=== PATIENT | female | born 1935 | race Caucasian/White ===

== ENCOUNTER 2017-03-19 21:55 | Inpatient (IN) | payer OTHER ==
[~2017-03-19] VITALS: Ht 165.1 cm; Wt 105.4 kg
[~2017-03-19 21:55] MED LIST: ASPIRIN81 M1 PO; BYSTOLIC5 MG PO; CELEBREX200 MG PO; CIPRO250 MG PO; CIPRO500 MG PO; CIPROFLOXACIN500 MG PO; CITRACAL + D E1 EACH PO; CITRACAL CALCIU1 TAB PO; COZAAR100 MG PO; DAYPRO600 M1 PO; DILTIAZEM CD120 MG PO; DILTIAZEM ER120 MG PO; DILTIAZEM120 MG PO; ESTER C 500 MG-1 TAB PO; FLAGYL500 MG PO; HYDR12.5C PO; HYDROCODONE BIT1 T11 PO; HYZAAR 50/12.5M1 TAB PO; K-DUR 2020 MEQ PO; LEVOTHYROXINE0.1 MG PO; LOSARTAN POTASS1 TA4 PO; LOSARTAN POTASS1 TAB PO; LUTEIN6 M2 PO; LUTEIN6 MG PO; OMEPRAZOLE DR20 M1 PO; PRESERVISION L1 EACH PO; PRESERVISION1 SGL PO; PRILOSEC20 MG PO; PYRIDIUM200 MG PO; ROBAXIN750 MG PO; SIMVASTATIN20 MG PO; SYNTHROID0.1 MG PO; TENORMIN50 MG PO; TYLENOL EXTRA500 M2 PO; VICODIN 500 MG-1 TAB PO; VITAMIN D1000 IU PO; ZOCOR20 MG PO; Zofran4 MG PO
[2017-03-19 22:03] VITALS: BP 151/83
[2017-03-19 22:40] VITALS: BP 142/76
[2017-03-19 22:44] LABS: BASO % 0.4 % (0.0-1.0); EOS % 0.4 % (1.0-4.0); HEMATOCRIT 42.3 % (37.0-47.0); HEMOGLOBIN 13.7 g/dl (12.0-16.0); IG # 0.1 10*3/uL (0.0-0.1); LYMPH # 1.1 10*3/uL (1.3-4.4); LYMPH % 12.3 % (27.0-41.0); MEAN CELL VOLUME 96.8 fl (81.0-99.0); MEAN CORPUSCULAR HGB 31.4 pg (27.0-31.0); MEAN CORPUSCULAR HGB CONC 32.4 g/dl (33.0-37.0); MEAN PLATELET VOLUME 10.1 fl (9.6-12.3); MONO % 11.1 % (3.0-9.0); NEUT # 6.9 10*3/uL (2.3-7.9); NEUT % 75.3 % (47.0-73.0); PLATELET COUNT AUTOMATED 191 10*3/uL (130-400); RED BLOOD COUNT 4.37 10*6/uL (4.10-5.10); RED CELL DISTRI WIDTH 13.5 % (0-14.5); WHITE BLOOD COUNT 9.2 10*3/uL (4.8-10.8)
[2017-03-19 23:02] LABS: ALBUMIN 3.4 gm/dl (3.1-4.5); BILIRUBIN, TOTAL 0.5 mg/dl (0.2-1.0); MAGNESIUM 1.9 mg/dL (1.5-2.1); POTASSIUM 4.1 mmol/L (3.5-5.1); TOTAL PROTEIN 6.9 gm/dL (6.4-8.2)
[2017-03-19 23:03] LABS: TROPONIN I 0.026 ng/ml (<0.045)
[2017-03-19 23:05] LABS: INTERNATIONAL NORM RATIO 0.9 (2.0-3.5)
[2017-03-19 23:26] VITALS: BP 140/80
[2017-03-19 23:54] LABS: BILIRUBIN NEGATIVE (NEGATIVE); BLOOD NEGATIVE (NEGATIVE); CLARITY SL CLOUDY (CLEAR); GLUCOSE NEGATIVE (NEGATIVE); KETONE TRACE (NEGATIVE); LEUKO ESTERASE 1+ (NEGATIVE); NITRITE NEGATIVE (NEGATIVE); PH 5.5 (5.0-9.0); PROTEIN 2+ (NEGATIVE)
[2017-03-20] VITALS (7 sets, daily range): BP systolic 131–157; BP diastolic 69–79
[2017-03-20] LABS: COLOR YELLOW (YELLOW)
[2017-03-20 00:03] LABS: BACTERIA 3+; EPITHELIAL CELLS 20-25; URINE REFLEX COMMENT YES (NO); WBC 21-30 wbc/hpf (0-5)
[2017-03-20] MEDS ORDERED: CALCIUM 600600 M2 PO (02:17)
[2017-03-20] MEDS ORDERED: LOSARTAN POTASS25 M1 PO (02:19)
[2017-03-20] MEDS ORDERED: VITAMIN D1000 IU PO (02:24)
[2017-03-20] MEDS ORDERED: PRESERVISION A1 EACH PO (02:24)
[2017-03-20] MEDS ORDERED: VITAMIN C100 M3 PO (02:25)
[2017-03-20] MEDS ORDERED: B121000 MCG/1 IM (02:26)
[2017-03-20 06:21] LABS: BASO % 0.3 % (0.0-1.0); EOS % 0.3 % (1.0-4.0); HEMATOCRIT 37.9 % (37.0-47.0); HEMOGLOBIN 12.6 g/dl (12.0-16.0); LYMPH # 1.6 10*3/uL (1.3-4.4); LYMPH % 18.2 % (27.0-41.0); MEAN CELL VOLUME 95.9 fl (81.0-99.0); MEAN CORPUSCULAR HGB 31.9 pg (27.0-31.0); MEAN CORPUSCULAR HGB CONC 33.2 g/dl (33.0-37.0); MEAN PLATELET VOLUME 10.4 fl (9.6-12.3); MONO # 1.3 10*3/uL (0.1-1.0); MONO % 15.2 % (3.0-9.0); NEUT # 5.8 10*3/uL (2.3-7.9); NEUT % 65.7 % (47.0-73.0); PLATELET COUNT AUTOMATED 168 10*3/uL (130-400); RED BLOOD COUNT 3.95 10*6/uL (4.10-5.10); RED CELL DISTRI WIDTH 13.5 % (0-14.5); WHITE BLOOD COUNT 8.8 10*3/uL (4.8-10.8)
[2017-03-20 06:31] LABS: CKMB 1.4 ng/ml (0.5-3.6); TROPONIN I 0.042 ng/ml (<0.045)
[2017-03-20 06:42] LABS: BUN 29 mg/dl (7-24); CARBON DIOXIDE 28 mmol/L (21-32); CHLORIDE 101 mmol/L (98-107); CHOLESTEROL 124 mg/dL (<200); EST GLOM FILT AFRICAN AMERICAN > 60 ml/min; FREE T4 1.22 ng/dl (0.76-1.46); GLUCOSE 110 mg/dL (65-99); HDL CHOLESTEROL 63 mg/dl (40-60); HEMOGLOBIN A1c 5.3 % (4.8-5.6); LDL CHOLESTEROL 40 mg/dL (9-159); MAGNESIUM 1.8 mg/dL (1.5-2.1); PHOSPHOROUS 2.8 mg/dL (2.5-4.9); POTASSIUM 3.2 mmol/L (3.5-5.1); SODIUM 139 mmol/L (136-145); TRIGLYCERIDES 103 mg/dl (<150); VLDL CHOLESTEROL 21 mg/dL (6-40)
[2017-03-20 06:55] LABS: PROTHROMBIN TIME 10.6 SECONDS (9.0-12.4)
[2017-03-20 07:09] LABS: VITAMIN D, 25-HYDROXY 31.6 ng/mL (30-100)
[2017-03-20 07:10] LABS: FOLIC ACID 15.54 ng/mL (>5.38)
[2017-03-20] MEDS ORDERED: COLACE100 MG PO (11:35)
[2017-03-20 12:34] LABS: CKMB 1.9 ng/ml (0.5-3.6)
[2017-03-20 12:37] LABS: TROPONIN I 0.047 ng/ml (<0.045)
[2017-03-20 18:30] LABS: CKMB 1.7 ng/ml (0.5-3.6); TROPONIN I 0.038 ng/ml (<0.045)
[2017-03-21] VITALS (8 sets, daily range): BP systolic 108–170; BP diastolic 53–94
[2017-03-21 06:51] LABS: BASO % 0.5 % (0.0-1.0); EOS # 0.1 10*3/uL (0.0-0.4); EOS % 1.1 % (1.0-4.0); HEMATOCRIT 35.5 % (37.0-47.0); HEMOGLOBIN 11.7 g/dl (12.0-16.0); LYMPH # 1.4 10*3/uL (1.3-4.4); LYMPH % 23.4 % (27.0-41.0); MEAN CELL VOLUME 96.5 fl (81.0-99.0); MEAN CORPUSCULAR HGB 31.8 pg (27.0-31.0); MEAN PLATELET VOLUME 10.6 fl (9.6-12.3); MONO % 16.6 % (3.0-9.0); NEUT # 3.5 10*3/uL (2.3-7.9); NEUT % 58.1 % (47.0-73.0); PLATELET COUNT AUTOMATED 169 10*3/uL (130-400); RED BLOOD COUNT 3.68 10*6/uL (4.10-5.10); RED CELL DISTRI WIDTH 13.7 % (0-14.5); WHITE BLOOD COUNT 6.1 10*3/uL (4.8-10.8)
[2017-03-21 06:52] LABS: ALBUMIN 2.9 gm/dl (3.1-4.5); ALKALINE PHOSPHATASE 81 U/L (45-117); BILIRUBIN, TOTAL 0.7 mg/dl (0.2-1.0); BUN 27 mg/dl (7-24); CARBON DIOXIDE 28 mmol/L (21-32); CHLORIDE 103 mmol/L (98-107); EST GLOM FILT AFRICAN AMERICAN > 60 ml/min; GLUCOSE 104 mg/dL (65-99); POTASSIUM 3.7 mmol/L (3.5-5.1); SGOT/AST 15 IU/L (3-35); SGPT/ALT 14 U/L (12-78); SODIUM 137 mmol/L (136-145); TOTAL PROTEIN 5.7 gm/dL (6.4-8.2)
[2017-03-22] VITALS: BP 113/63
[2017-03-22 06:46] LABS: BASO % 0.6 % (0.0-1.0); EOS # 0.1 10*3/uL (0.0-0.4); EOS % 1.7 % (1.0-4.0); HEMATOCRIT 35.5 % (37.0-47.0); HEMOGLOBIN 11.5 g/dl (12.0-16.0); LYMPH # 1.7 10*3/uL (1.3-4.4); LYMPH % 25.7 % (27.0-41.0); MEAN CELL VOLUME 97.8 fl (81.0-99.0); MEAN CORPUSCULAR HGB 31.7 pg (27.0-31.0); MEAN CORPUSCULAR HGB CONC 32.4 g/dl (33.0-37.0); MONO # 1.1 10*3/uL (0.1-1.0); MONO % 16.7 % (3.0-9.0); NEUT # 3.6 10*3/uL (2.3-7.9); PLATELET COUNT AUTOMATED 155 10*3/uL (130-400); RED BLOOD COUNT 3.63 10*6/uL (4.10-5.10); RED CELL DISTRI WIDTH 13.9 % (0-14.5); WHITE BLOOD COUNT 6.5 10*3/uL (4.8-10.8)
[2017-03-22 06:51] LABS: BUN 29 mg/dl (7-24); CARBON DIOXIDE 25 mmol/L (21-32); CHLORIDE 102 mmol/L (98-107); EST GLOM FILT AFRICAN AMERICAN > 60 ml/min; GLUCOSE 103 mg/dL (65-99); MAGNESIUM 1.7 mg/dL (1.5-2.1); SODIUM 138 mmol/L (136-145)
[2017-03-22 06:52] LABS: PHOSPHOROUS 3.7 mg/dL (2.5-4.9)
[2017-03-22 08:00] VITALS: BP 137/49
[2017-03-22 12:00] VITALS: BP 119/52
[2017-03-22] MEDS ORDERED: LOSARTAN POTASS50 M1 PO (13:42)
[2017-03-22] MEDS ORDERED: XARE20MG PO (13:42)
[2017-03-22] MEDS ORDERED: HYDR25T PO (13:42)
== END 2017-03-22 14:45 | disposition home or self-care (01) | DRG 308 ==
LOC: ED 21:55 → 4E 03-20 00:29 → EDHOLD 03-20 00:29 → 4E 03-20 00:40
PROVIDERS: Emergency Medicine Emergency Medical Services; Hospitalist; Internal Medicine; Internal Medicine Nephrology
DX: I48.0 Paroxysmal atrial fibrillation (principal); N17.0 Acute kidney failure with tubular necrosis; E66.01 Morbid (severe) obesity due to excess calories; M48.00 Spinal stenosis, site unspecified; R73.9 Hyperglycemia, unspecified; D72.810 Lymphocytopenia; D72.821 Monocytosis (symptomatic); D72.818 Other decreased white blood cell count; E78.5 Hyperlipidemia, unspecified; E03.9 Hypothyroidism, unspecified; I89.0 Lymphedema, not elsewhere classified; Z60.2 Problems related to living alone; Z96.653 Presence of artificial knee joint, bilateral; Z96.611 Presence of right artificial shoulder joint; I12.9 Hypertensive chronic kidney disease with stage 1 through stage 4 chronic kidney disease, or unspecified chronic kidney disease; N18.3 Chronic kidney disease, stage 3 (moderate); Z68.38 Body mass index [BMI] 38.0-38.9, adult; Z88.0 Allergy status to penicillin; Z88.1 Allergy status to other antibiotic agents; Z88.8 Allergy status to other drugs, medicaments and biological substances; Z91.011 Allergy to milk products; Z91.018 Allergy to other foods; Z87.440 Personal history of urinary (tract) infections; Z90.49 Acquired absence of other specified parts of digestive tract; Z83.3 Family history of diabetes mellitus; Z82.49 Family history of ischemic heart disease and other diseases of the circulatory system; Z85.3 Personal history of malignant neoplasm of breast; Z90.710 Acquired absence of both cervix and uterus; Z88.2 Allergy status to sulfonamides; Z79.82 Long term (current) use of aspirin; Z79.899 Other long term (current) drug therapy

== ENCOUNTER 2017-05-23 07:55 | Inpatient (IN) | payer OTHER ==
[~2017-05-23] VITALS: Ht 167.6 cm; Wt 105.2 kg
--- NOTE | ~2017-05-23 | ST ---
[place], [place] EXERCISE STRESS TEST REPORT NAME: JERED SHAW UNIT #: [id number] ROOM: [facility] DOCTOR: ALEX ANGELES MD BIRTHDATE: [birth year] DOS: 05/24/2017 LEXISCAN STRESS EKG INDICATION: Atrial fibrillation and shortness of breath. PROCEDURES PERFORMED: Lexiscan stress EKG. The patient underwent standard protocol Lexiscan stress EKG. Patient's baseline heart rate was 80 with a blood pressure 130/84. Patient's baseline rhythm was atrial fibrillation. Patient's peak heart rate was 103 with a blood pressure 114/58. Patient had no EKG changes, no chest pain and no arrhythmias. SUMMARY OF FINDINGS: Unremarkable Lexiscan stress EKG. ALEX ANGELES MD CM:STRESS:EXERCISE STRESS TEST REPORT [id number] ALEX ANGELES MD
[~2017-05-23 07:55] MED LIST changes: +B121000 MCG/1 IM; +CALCIUM 600600 M2 PO; +COLACE100 MG PO; +HYDR25T PO; +LOSARTAN POTASS25 M1 PO; +LOSARTAN POTASS50 M1 PO; +PRESERVISION A1 EACH PO; +VITAMIN C100 M3 PO; +XARE20MG PO
[2017-05-23 08:09] VITALS: BP 134/81
[2017-05-23 08:25] LABS: BASO # 0.1 10*3/uL (0.0-0.1); BASO % 0.6 % (0.0-1.0); EOS # 0.1 10*3/uL (0.0-0.4); EOS % 0.6 % (1.0-4.0); HEMATOCRIT 45.6 % (37.0-47.0); HEMOGLOBIN 14.8 g/dl (12.0-16.0); LYMPH # 1.5 10*3/uL (1.3-4.4); LYMPH % 17.4 % (27.0-41.0); MEAN CELL VOLUME 97.9 fl (81.0-99.0); MEAN CORPUSCULAR HGB 31.8 pg (27.0-31.0); MEAN CORPUSCULAR HGB CONC 32.5 g/dl (33.0-37.0); MEAN PLATELET VOLUME 10.5 fl (9.6-12.3); NEUT # 6.1 10*3/uL (2.3-7.9); NEUT % 70.2 % (47.0-73.0); PLATELET COUNT AUTOMATED 219 10*3/uL (130-400); RED BLOOD COUNT 4.66 10*6/uL (4.10-5.10); RED CELL DISTRI WIDTH 13.6 % (0-14.5); WHITE BLOOD COUNT 8.6 10*3/uL (4.8-10.8)
[2017-05-23 08:37] LABS: ACT PARTIAL THROMBO TIME 34.3 SECONDS (20.8-31.5); INTERNATIONAL NORM RATIO 1.2 (2.0-3.5)
[2017-05-23 08:45] LABS: ALBUMIN 3.7 gm/dl (3.1-4.5); ALKALINE PHOSPHATASE 116 U/L (45-117); BUN 19 mg/dl (7-24); CHLORIDE 99 mmol/L (98-107); CREATININE 0.94 mg/dL (0.55-1.02); LIPASE 243 U/L (73-393); MAGNESIUM 1.7 mg/dL (1.5-2.1); SGOT/AST 30 IU/L (3-35); SGPT/ALT 19 U/L (12-78); SODIUM 137 mmol/L (136-145); TOTAL PROTEIN 7.7 gm/dL (6.4-8.2); TROPONIN I 0.037 ng/ml (<0.045)
[2017-05-23 09:09] LABS: BILIRUBIN NEGATIVE (NEGATIVE); BLOOD NEGATIVE (NEGATIVE); CLARITY CLEAR (CLEAR); COLOR YELLOW (YELLOW); GLUCOSE NEGATIVE (NEGATIVE); KETONE NEGATIVE (NEGATIVE); LEUKO ESTERASE NEGATIVE (NEGATIVE); NITRITE NEGATIVE (NEGATIVE); UROBILINOGEN 0.2 E.U./dl (0.2-1.0)
[2017-05-23 09:19] LABS: RBC 0-2 rbc/hpf (0-2)
[2017-05-23 09:31] VITALS: BP 112/62
--- NOTE | 2017-05-23 10:00 | NUR ---
A 81, admitted to , under the services of ELISEO Starr DO with a diagnosis of AFIB/RVR. Chief complaint is HEART FLUTTER. Patient arrived via bed from ER. Monitor applied. Initial assessment completed. Vital signs taken and recorded. ELISEO STARR DO notified of admission to the unit. Orders received. See assessment for past medical history, medications and allergies. Patient and/or family oriented to unit. [facility] visitation policy reviewed. Clothing/patient valuable form completed. GERONIMO CARRANZA
[2017-05-23 10:15] VITALS: BP 142/71
[2017-05-23 10:55] VITALS: BP 142/71
--- NOTE | 2017-05-23 11:44 | NUR ---
EPHRAIM CALLED AND TOLD ABOUT CONSULT. SHE PAGED DR. ANGELES, AWAITING HIM TO RETURN PHONE CALL TO UPDATE ABOUT PATIENT.
--- NOTE | 2017-05-23 13:10 | NUR ---
DR. BOLANOS NOTIFIED OF LACTIC ACID RESULTS.
[2017-05-23 14:35] LABS: FREE T4 1.2 ng/dl (0.76-1.46)
[2017-05-23 14:40] LABS: THYROID STIM HORMONE (HS) 1.24 uIU/ml (0.358-4.75)
--- NOTE | 2017-05-23 14:45 | NUR ---
DR. DAILY NOTIFIED OF CRITICAL TROP. DR. DAILY HAD NO CONCERNS AT THIS TIME.
[2017-05-23 16:00] VITALS: BP 120/88
[2017-05-23 20:00] VITALS: BP 140/69
[2017-05-24 00:02] VITALS: BP 133/56
[2017-05-24 06:01] LABS: BASO % 0.4 % (0.0-1.0); EOS # 0.1 10*3/uL (0.0-0.4); EOS % 0.8 % (1.0-4.0); LYMPH # 1.6 10*3/uL (1.3-4.4); LYMPH % 21.7 % (27.0-41.0); MEAN CELL VOLUME 96.9 fl (81.0-99.0); MEAN CORPUSCULAR HGB 31.8 pg (27.0-31.0); MEAN CORPUSCULAR HGB CONC 32.8 g/dl (33.0-37.0); MEAN PLATELET VOLUME 10.1 fl (9.6-12.3); MONO % 14.3 % (3.0-9.0); NEUT # 4.5 10*3/uL (2.3-7.9); NEUT % 62.5 % (47.0-73.0); PLATELET COUNT AUTOMATED 166 10*3/uL (130-400); RED CELL DISTRI WIDTH 13.7 % (0-14.5); WHITE BLOOD COUNT 7.2 10*3/uL (4.8-10.8)
[2017-05-24 06:06] LABS: BUN 24 mg/dl (7-24); CHLORIDE 102 mmol/L (98-107); CHOLESTEROL 107 mg/dL (<200); CREATININE 0.74 mg/dL (0.55-1.02); HDL CHOLESTEROL 53 mg/dl (40-60); LDL CHOLESTEROL 28 mg/dL (9-159); MAGNESIUM 1.8 mg/dL (1.5-2.1); PHOSPHOROUS 2.7 mg/dL (2.5-4.9); POTASSIUM 3.6 mmol/L (3.5-5.1); SODIUM 139 mmol/L (136-145); TRIGLYCERIDES 128 mg/dl (<150); VLDL CHOLESTEROL 26 mg/dL (6-40)
[2017-05-24 06:23] LABS: HEMATOCRIT 37.8 % (37.0-47.0); HEMOGLOBIN 12.4 g/dl (12.0-16.0)
[2017-05-24 06:39] LABS: ACT PARTIAL THROMBO TIME 33.9 SECONDS (20.8-31.5); INTERNATIONAL NORM RATIO 1.3 (2.0-3.5)
[2017-05-24 07:44] LABS: VITAMIN D, 25-HYDROXY 29.8 ng/mL (30-100)
[2017-05-24 08:00] VITALS: BP 128/62
--- NOTE | 2017-05-24 09:00 | NUR ---
Correctional Officer Sergeant in to talk to patient. Patient states lives at home with alone. There are few steps in the home. Physician: ladonna babb Pharmacy: [facility] health services: none Patient's level of ADLs: INDEPENDENT Patient has working utilities: all working DME: walker, cane, shower chair Follow-up physician's appointment after d/c: will be made by hospitalist nurse director upon discharge Does patient want to access PORTAL?: no Discharge plan discussed with patient, patient states she lives at home alone, uses a cane or walker for ambulation, is independent in adls. drives, patient states she will be going back home when able and denies any home needs. NENA SAMAYOA
--- NOTE | 2017-05-24 10:09 | NUR ---
PATIENT TAKEN TO CARDIAC REHAB.
--- NOTE | 2017-05-24 10:45 | NUR ---
INFORMED CONSENT OBTAINED FOR LEXISCAN NUCLEAR STRESS TEST WITH DR. ANGELES. RESTING EKG NSR WITH RARE PVC WITH A RESTING HR OF 80 WITH BP OF 130/84. LUNGS CLEAR WITH SPO2 OF 96% ON ROOM AIR. PT COMPLETED A 1:00 LEXISCAN PROTOCOL RECEIVING LEXISCAN 0.4 MG IV OVER 10 SECONDS. HAD NO CHEST PAIN OR ANY EKG CHANGES. HAD C/O "FUZZY FEELING IN HEAD" THAT WAS RELIEVED IN RECOVERY. HAD A PEAK HR OF 106 WITH BP OF 114/58. LAST RECOVERY HR OF 94 WITH BP OF 124/54. AWAITING SCANNING IN STABLE CONDITION.
[2017-05-24 12:00] VITALS: BP 122/75
[2017-05-24] MEDS ORDERED: FLECAINIDE ACE100 M1 PO (13:57)
--- NOTE | 2017-05-24 16:56 | NUR ---
PATIENT BEING DISCHARGED TO HOME.
--- NOTE | 2017-05-24 17:56 | NUR ---
PATIENT DISCHARGED TO HOME
== END 2017-05-24 17:56 | disposition home or self-care (01) | DRG 309 ==
LOC: ED 07:55 → EDHOLD 09:20 → 5E 09:20
PROVIDERS: Emergency Medicine; Internal Medicine; ADMIT Internal Medicine
PROC: 3E073KZ Introduction of Other Diagnostic Substance into Coronary Artery, Percutaneous Approach (ICD-10-PCS; principal; 2017-05-24)
PROC: 4A02XM4 Measurement of Cardiac Total Activity, External Approach (ICD-10-PCS; principal; 2017-05-24)
DX: I48.0 Paroxysmal atrial fibrillation (principal); E87.2 Acidosis; D68.59 Other primary thrombophilia; E11.65 Type 2 diabetes mellitus with hyperglycemia; E66.01 Morbid (severe) obesity due to excess calories; Z96.659 Presence of unspecified artificial knee joint; I10 Essential (primary) hypertension; E78.2 Mixed hyperlipidemia; E03.9 Hypothyroidism, unspecified; I89.0 Lymphedema, not elsewhere classified; Z85.3 Personal history of malignant neoplasm of breast; Z90.49 Acquired absence of other specified parts of digestive tract; Z90.710 Acquired absence of both cervix and uterus; Z82.49 Family history of ischemic heart disease and other diseases of the circulatory system; Z83.6 Family history of other diseases of the respiratory system; Z88.0 Allergy status to penicillin; Z91.018 Allergy to other foods; Z88.2 Allergy status to sulfonamides; Z88.1 Allergy status to other antibiotic agents; Z88.8 Allergy status to other drugs, medicaments and biological substances; Z79.82 Long term (current) use of aspirin; Z79.899 Other long term (current) drug therapy

== ENCOUNTER 2017-05-29 01:02 | Inpatient (IN) | payer OTHER ==
[~2017-05-29] VITALS: Ht 165.1 cm; Wt 119.8 kg
[2017-05-29] VITALS (11 sets, daily range): BP systolic 116–181; BP diastolic 63–89
--- NOTE | ~2017-05-29 | CON ---
[place], [place] REPORT OF CONSULTATION NAME: JERED SHAW UNIT #: [id number] ROOM: 405 DOCTOR: VIRGIL WILLARD MD BIRTHDATE: [birth year] DOS: 05/29/2017 REASON FOR CONSULTATION: Palpitations, atrial fibrillation with rapid ventricular response. HISTORY OF PRESENT ILLNESS: The patient is an 81-year-old woman who is limited in her activities by chronic lymphedema, but is still active and alert. She was diagnosed as having atrial fibrillation in February of this year. An echocardiogram showed normal left ventricular size and systolic function. Two echocardiograms are available in the last year. One was done in 07/2016 and the other in 02/2017. The first indicated that the left atrium was significantly enlarged, but the second indicated the left atrium was normal in size. Both showed normal left ventricular function. She was treated with rate control and Xarelto for stroke prophylaxis. She presented again to the hospital in 04/2017 with palpitations. Troponin level was minimally elevated at 0.051. She did undergo a pharmacologic stress test on 05/24/2017, which showed no evidence for ischemia. She was therefore placed on flecainide to help prevent further episodes of atrial fibrillation along with diltiazem for rate control. She was continued on Xarelto for stroke prophylaxis. Last evening at about 10:00 p.m. while at rest, she felt that her heart was racing. She was lying in bed and felt uncomfortable, so she sat up and her symptoms improved. They did, however, recur and therefore she came to the Emergency Room. She denied actual chest pain, but states that her heart was beating very hard. She denied diaphoresis, nausea, lightheadedness or syncope. She was not dyspneic. In the hospital, her initial troponin level was 0.030 and then 0.029; however, the third troponin level obtained about 6 hours after admission was 0.108 and therefore, Cardiology was consulted. Review of her monitor shows that she has been in atrial fibrillation and flutter for much of her hospitalization thus far. Her heart rates have varied from 80-130. PAST MEDICAL HISTORY: Includes; 1. Essential hypertension. 2. Hyperlipidemia. 3. Hypothyroidism. 4. Lymphedema. 5. Obesity. 6. Paroxysmal atrial fibrillation, first diagnosed 02/2017. 7. Spinal stenosis. 8. Breast cancer. 9. The patient gives a history of an abnormal stress test 15 or 20 years ago. She subsequently underwent catheterization at the [facility] in [place] and was told that she had no coronary artery disease. 10. History of hysterectomy, cholecystectomy, breast lumpectomy, shoulder surgery and total knee replacement. FAMILY HISTORY: The patient states that her father of a heart attack in his 80s, her mother in her 80s of COPD. REVIEW OF SYSTEMS: The patient denies diplopia or loss of vision. She denies [place], [place] REPORT OF CONSULTATION NAME: JERED SHAW UNIT #: [id number] ROOM: 405 DOCTOR: VIRGIL WILLARD MD BIRTHDATE: [birth year] focal weakness or history of stroke or TIA. She denies nausea or vomiting. She denies fevers, chills, sweats or recent weight change. She denies polydipsia, polyuria, heat or cold intolerance. She denies any new skin rashes. She denies hemoptysis or hematemesis. She is very sedentary and does get dyspneic with minor exertion. She denies any chest pain, but did have palpitations prior to admission as noted. She denied lightheadedness or syncope. She denied unexplained diaphoresis. She denies change in bowel or bladder habits and denied blood in her stools or urine. She does have chronic lymphedema of her legs. She does complain of cramping in her legs if they have been dependent for long periods of time. The remainder of the review of systems is negative except as noted above. SOCIAL HISTORY: The patient does not consume alcohol and has never smoked, although she did live with smokers as she was growing up. She states that her mother was a heavy smoker. She does not consume alcohol. MEDICATIONS PRIOR TO ADMISSION: B12 1000 mcg injected monthly, acetaminophen p.r.n., ascorbic acid 1000 mg daily, aspirin 81 mg daily, calcium carbonate 600 mg daily, vitamin D daily, diltiazem CD 120 mg daily, flecainide 100 mg b.i.d., hydrochlorothiazide 25 mg daily, levothyroxine 100 mcg daily, losartan 50 mg daily, lutein 6 mg daily, rivaroxaban 20 mg daily, simvastatin 20 mg at bedtime, PreserVision vitamins b.i.d. and docusate 100 mg daily as needed. ALLERGIES: SHE LISTS ALLERGIES TO DAIRY PRODUCTS, LEMON, PENICILLIN, SULFA, CHOCOLATE FLAVOR, CORTISONE, DIPHENHYDRAMINE, METHOCARBAMOL, NEOMYCIN AND OTHER MYCINS. PHYSICAL EXAMINATION: GENERAL: The patient is an overweight white female who is awake, alert and oriented. VITAL SIGNS: Pulse is varying between 80 and 130, blood pressure is 140/70. She is afebrile. She weighs 119.8 kg and has a body mass index of 44. HEENT: Normocephalic, atraumatic. Extraocular muscles are intact. Sclerae are clear. Pupils are round and reactive to light. The oral mucosa is moist. Tongue is midline. NECK: Supple. She has no jugular distention. Carotids are full. She has no bruit. She has no neck or supraclavicular masses. LUNGS: Respirations are unlabored. CHEST: Clear to auscultation and percussion. She has no presacral edema or chest wall tenderness. CARDIOVASCULAR: Her heart has an irregularly irregular rhythm without murmurs or gallops. The PMI is not displaced. She has no precordial heave, lift or thrill. ABDOMEN: Obese, but otherwise benign without masses, organomegaly or bruits. There is no mass or rebound. EXTREMITIES: Show lymphedema of the legs. Pedal pulses are palpable bilaterally. She does have some chronic stasis changes of her ankles, but no acute rashes. LABORATORY DATA: I reviewed her electrocardiogram. It showed sinus rhythm with [place], [place] REPORT OF CONSULTATION NAME: JERED SHAW UNIT #: [id number] ROOM: 405 DOCTOR: VIRGIL WILLARD MD BIRTHDATE: [birth year] PACs. There is probable left atrial enlargement. She had early precordial R-wave transition and borderline T-wave abnormalities, but no acute ST elevation or depression. IMPRESSIONS: 1. Recurrent atrial fibrillation (paroxysmal atrial fibrillation). 2. Hypertension. 3. Hypothyroidism, on replacement. 4. Morbid obesity. 5. Elevation in troponin level. 6. Type 2 diabetes mellitus, diet therapy. 7. Lymphedema. DISCUSSION PLAN: The patient has had elevated troponin levels in the past with her atrial fibrillation; however, this is the highest we have seen. A stress test done within the last week showed no evidence for ischemia; however, this may mean that she does have multivessel disease with "balanced ischemia." Alternatively, she may have subendocardial ischemia from left ventricular hypertrophy and tachycardia. It is likely that her heart rate in atrial fibrillation is faster now since she is on flecainide. This may have contributed to increase subendocardial ischemia. I have discussed these issues with the patient. I would like to repeat her echocardiogram for left ventricular wall motion and function. I would also like to follow her serial troponin levels. If they continue to rise or if she shows any deterioration in left ventricular function, then catheterization would certainly be indicated. The patient understands this and is agreeable to proceed if it appears to be indicated. Flecainide apparently was not effective in preventing her atrial fibrillation. For now, I will stop her diltiazem and place her on metoprolol. We will discuss other antiarrhythmic therapies once we have decided whether or not, catheterization is indicated. In the interim, I will stop rivaroxaban and place her on unfractionated heparin until we make a decision regarding an invasive evaluation. I thank the hospitalist physicians for asking our advice regarding her care. VIRGIL WILLARD MD CM:CONSTR:REPORT OF CONSULTATION 05/29/17 0956 interface
[~2017-05-29 01:02] MED LIST changes: +CALCIUM 600 MG1 EACH PO; -CALCIUM 600600 M2 PO; +FLECAINIDE ACE100 M1 PO
[2017-05-29 01:29] LABS: BASO # 0.1 10*3/uL (0.0-0.1); BASO % 0.6 % (0.0-1.0); EOS # 0.1 10*3/uL (0.0-0.4); EOS % 0.8 % (1.0-4.0); HEMATOCRIT 41.3 % (37.0-47.0); HEMOGLOBIN 13.5 g/dl (12.0-16.0); LYMPH # 1.5 10*3/uL (1.3-4.4); LYMPH % 17.3 % (27.0-41.0); MEAN CELL VOLUME 96.5 fl (81.0-99.0); MEAN CORPUSCULAR HGB 31.5 pg (27.0-31.0); MEAN CORPUSCULAR HGB CONC 32.7 g/dl (33.0-37.0); MEAN PLATELET VOLUME 10.1 fl (9.6-12.3); MONO % 11.3 % (3.0-9.0); NEUT % 69.8 % (47.0-73.0); PLATELET COUNT AUTOMATED 188 10*3/uL (130-400); RED BLOOD COUNT 4.28 10*6/uL (4.10-5.10); RED CELL DISTRI WIDTH 13.6 % (0-14.5); WHITE BLOOD COUNT 8.7 10*3/uL (4.8-10.8)
[2017-05-29 01:39] LABS: ACT PARTIAL THROMBO TIME 38.3 SECONDS (20.8-31.5); INTERNATIONAL NORM RATIO 1.4 (2.0-3.5)
[2017-05-29 01:46] LABS: ALBUMIN 3.5 gm/dl (3.1-4.5); ALKALINE PHOSPHATASE 95 U/L (45-117); BUN 25 mg/dl (7-24); CHLORIDE 103 mmol/L (98-107); CREATININE 0.77 mg/dL (0.55-1.02); MAGNESIUM 1.5 mg/dL (1.5-2.1); POTASSIUM 3.4 mmol/L (3.5-5.1); SGOT/AST 19 IU/L (3-35); SGPT/ALT 13 U/L (12-78); SODIUM 137 mmol/L (136-145); TOTAL PROTEIN 6.7 gm/dL (6.4-8.2)
--- NOTE | 2017-05-29 02:45 | NUR ---
MEDICATION REQ REVIEWED WITH PT AND PTS DAUGHTER AT THIS TIME.
--- NOTE | 2017-05-29 02:45 | NUR ---
A 81, admitted to 4E, under the services of LISA Mclaughlin DO with a diagnosis of AFIB WITH CONTROLLED VENTRICULAR RESPONSE AND CHEST PAIN. Chief complaint is FAST HEART RATE-PALPATATIONS. Patient arrived via stretcher from ER. Monitor applied. Initial assessment completed. Vital signs taken and recorded. LISA MCLAUGHLIN DO notified of admission to the unit. Orders received. See assessment for past medical history, medications and allergies. Patient and/or family oriented to unit. visitation policy reviewed. Clothing/patient valuable form completed. ISHMAEL DAVALOS
--- NOTE | 2017-05-29 05:47 | NUR ---
NOTIFIED THAT MED REQ UP TO DATE
--- NOTE | 2017-05-29 06:27 | NUR ---
PT REPORTS THAT SHE HAS BEEN PREVIOUSLY VACCINATED FOR THE FLU SHOT DURING LAST HOSPITALIZATION
[2017-05-29 07:23] LABS: BASO % 0.5 % (0.0-1.0); EOS % 0.5 % (1.0-4.0); HEMATOCRIT 42.4 % (37.0-47.0); HEMOGLOBIN 13.8 g/dl (12.0-16.0); LYMPH # 1.9 10*3/uL (1.3-4.4); LYMPH % 22.8 % (27.0-41.0); MEAN CELL VOLUME 96.8 fl (81.0-99.0); MEAN CORPUSCULAR HGB 31.5 pg (27.0-31.0); MEAN CORPUSCULAR HGB CONC 32.5 g/dl (33.0-37.0); MEAN PLATELET VOLUME 9.8 fl (9.6-12.3); MONO % 12.5 % (3.0-9.0); NEUT # 5.1 10*3/uL (2.3-7.9); NEUT % 63.3 % (47.0-73.0); PLATELET COUNT AUTOMATED 194 10*3/uL (130-400); RED BLOOD COUNT 4.38 10*6/uL (4.10-5.10); RED CELL DISTRI WIDTH 13.4 % (0-14.5); WHITE BLOOD COUNT 8.1 10*3/uL (4.8-10.8)
--- NOTE | 2017-05-29 07:40 | NUR ---
CALLED CONSULT TO [facility] ANSWERING SERVICE.
--- NOTE | 2017-05-29 07:40 | NUR ---
SPOKE WITH DR. GALLEGO REGARDING ELEVATED TROPININ. DR. GALLEGO STATES SHE WILL CONSULT [facility] CARDI[facility] AND PUT ORDERS IN.
[2017-05-29 07:46] LABS: ALBUMIN 3.5 gm/dl (3.1-4.5); ALKALINE PHOSPHATASE 103 U/L (45-117); BUN 21 mg/dl (7-24); CHLORIDE 104 mmol/L (98-107); CREATININE 0.79 mg/dL (0.55-1.02); MAGNESIUM 1.7 mg/dL (1.5-2.1); PHOSPHOROUS 2.8 mg/dL (2.5-4.9); POTASSIUM 3.2 mmol/L (3.5-5.1); SGOT/AST 16 IU/L (3-35); SGPT/ALT 15 U/L (12-78); SODIUM 140 mmol/L (136-145); TOTAL PROTEIN 7.2 gm/dL (6.4-8.2)
[2017-05-29 07:57] LABS: ACT PARTIAL THROMBO TIME 32.8 SECONDS (20.8-31.5); INTERNATIONAL NORM RATIO 1.2 (2.0-3.5)
--- NOTE | 2017-05-29 08:11 | NUR ---
ADMINISTERED 10 MG BOLUS CARDIZEM AND STARTED DRIP AT RATE OF 10 MG/HR. CURRENT HEART RATE IS 137.
--- NOTE | 2017-05-29 08:25 | NUR ---
SPOKE WITH DR. CORTEZ REGARDING NEW CONSULT FOR THIS PATIENT AND ELEVATED TROPONIN WELL ELEVATED HEART RATE. DR. WILLARD GAVE TO ORDER FOR DILTIAZEM BOLUS 10MG AND A CONTINUEOUS DRIP AT 10 MG/HR.
--- NOTE | 2017-05-29 08:34 | NUR ---
CURRENT HEART RATE IS 89 STILL ATRIAL FIBRILLATION.
--- NOTE | 2017-05-29 08:42 | NUR ---
HEART RATE IS CURRENTLY 120. DR. WILLARD WANTS RATE TO MAINTAIN FOR ONE HOUR AND REASSESS HR THEN AND CALL FOR OREDERS.
--- NOTE | 2017-05-29 09:27 | NUR ---
INITIATED HEPARIN BOLUS AND DRIP ORDERED. PTT ORDERED PER POLICY.
--- NOTE | 2017-05-29 11:19 | NUR ---
NOTIFIED DR. SALGADO OF CRITICAL LAB VALUE.
--- NOTE | 2017-05-29 16:33 | NUR ---
ASSESSED PT. SHE WAS BLEEDING FROM THE FINGER AND IV WAS SLIGHTLY BLEEDING. HEPEREIN DRIP WAS STOPPED AND PRESSURE WAS PUT ON FINGER AND IV SITE. WILL CONINUE TO MONITOR
--- NOTE | 2017-05-29 18:10 | NUR ---
LAB REPORTS ABNORMAL APPT RESULTS THAT HAS BEEN VERIFIED BY REPEAT TESTING.RESULTS COULD REFLECTEXCESSIVE ANTICOAGULANT THERAPY, LOW FACTOR LEVELS, A FACTOR INHIBITOR OR SAMPLE INTEGRITY ISSUE. ADVISED DR. WILLARD OF THESE FINDINGS. DR. CARRASCO GAVE TO ORDER TO D/C HEPARIN AND RESUME XERALTO TOMORROW MORNING.
--- NOTE | 2017-05-29 20:00 | NUR ---
PATIENT SITTING UP IN BED, DENIES ANY CHEST PAIN, OR SHORTNESS OF BREATH. PATIENT HAS SINCE CONVERTED TO NORMAL SINUS HR IN THE 70'S. PATIENT DENIES ANY OTHER SYMPTOMS AT THIS TIME. WILL CONTINUE TO MONITOR. PATIENT LEFT WITH CALL LIGHT IN REACH.
--- NOTE | 2017-05-29 22:44 | NUR ---
24 HR chart check completed.
[2017-05-30] VITALS: BP 132/67
[2017-05-30 07:08] LABS: BUN 23 mg/dl (7-24); CHLORIDE 108 mmol/L (98-107); CREATININE 0.81 mg/dL (0.55-1.02); POTASSIUM 3.7 mmol/L (3.5-5.1); SODIUM 140 mmol/L (136-145)
[2017-05-30 07:12] LABS: TROPONIN I 0.058 ng/ml (<0.045)
[2017-05-30 08:00] VITALS: BP 151/62
--- NOTE | 2017-05-30 08:00 | NUR ---
IN BED AWAKE ALERT AND ORIENTED X3, VERY PLEASANT. DENIES ANY COMPLAINTS. NO S/S OF DISTRESS. WILL CONT TO MONITOR. CALL LIGHT IN REACH. LABS REVIEWED.
--- NOTE | 2017-05-30 09:00 | NUR ---
Javascript Software Engineer in to talk to patient. Patient states lives at home with alone. There are few steps in the home. Physician: ladonna babb Pharmacy: [facility] health services: none Patient's level of ADLs: INDEPENDENT Patient has working utilities: all working DME: walker, cane, shower chair Follow-up physician's appointment after d/c: will be made by hospitalist nurse director upon discharge Does patient want to access PORTAL?: no Discharge plan discussed with patient, patient lives at home alone, she states she has a cane and walker if needed she drives, patient states she will be going home when able, discussed with her VNA and she refused any at this time, stated she has two daughter that will help her if needed. case management will follow. NENA SAMAYAO
[2017-05-30 12:00] VITALS: BP 153/75
[2017-05-30 16:00] VITALS: BP 117/59
[2017-05-30 20:00] VITALS: BP 124/58
[2017-05-31] VITALS: BP 127/53
--- NOTE | 2017-05-31 05:53 | NUR ---
PATIENT RESTING IN BED WITH EYES CLOSED. NO SIGNS OR SYMPTOMS OF DISTRESS NOTED. SLEPT WELL THROUGH THE NIGHT. WILL CONTINUE TO MONITOR. CALL LIGHT IN REACH.
[2017-05-31 06:00] LABS: BUN 25 mg/dl (7-24); CHLORIDE 105 mmol/L (98-107); MAGNESIUM 1.7 mg/dL (1.5-2.1); POTASSIUM 3.3 mmol/L (3.5-5.1); SODIUM 139 mmol/L (136-145)
[2017-05-31 06:07] LABS: BASO # 0.1 10*3/uL (0.0-0.1); BASO % 0.8 % (0.0-1.0); EOS # 0.1 10*3/uL (0.0-0.4); EOS % 1.6 % (1.0-4.0); HEMATOCRIT 36.8 % (37.0-47.0); HEMOGLOBIN 11.8 g/dl (12.0-16.0); LYMPH # 1.3 10*3/uL (1.3-4.4); LYMPH % 20.7 % (27.0-41.0); MEAN CELL VOLUME 97.1 fl (81.0-99.0); MEAN CORPUSCULAR HGB 31.1 pg (27.0-31.0); MEAN CORPUSCULAR HGB CONC 32.1 g/dl (33.0-37.0); MEAN PLATELET VOLUME 10.4 fl (9.6-12.3); MONO % 15.4 % (3.0-9.0); NEUT # 3.8 10*3/uL (2.3-7.9); NEUT % 61.2 % (47.0-73.0); PLATELET COUNT AUTOMATED 168 10*3/uL (130-400); RED BLOOD COUNT 3.79 10*6/uL (4.10-5.10); RED CELL DISTRI WIDTH 13.7 % (0-14.5); WHITE BLOOD COUNT 6.2 10*3/uL (4.8-10.8)
[2017-05-31 08:00] VITALS: BP 154/69
--- NOTE | 2017-05-31 08:00 | NUR ---
IN BED AWAKE ALERT AND ORIENTED X3, VERY PLEASANT. DENIES C/O. NO S/S OF DISTRESS .WILL CONT TO MONITOR. CALL LIGHT IN REACH. SEE ASSESS. LABS REVIEWED.
--- NOTE | 2017-05-31 09:00 | NUR ---
case management visits with patient, patient states she will be going home when able and denies any home needs
[2017-05-31 12:00] VITALS: BP 147/71
[2017-05-31] MEDS ORDERED: TOPROL XL50 M1 PO (13:07)
[2017-05-31] MEDS ORDERED: SIMVASTATIN10 MG PO (13:07)
[2017-05-31] MEDS ORDERED: MULTAQ400 MG PO (13:07)
--- NOTE | 2017-05-31 16:47 | NUR ---
DISCHARGED AT THIS TIME. BOTH IVs REMOVED AND PRESSURE DRESSING APPLIED. HEART MONITOR RETURNED TO FLOOR. VERBALIZED UNDERSTANDING OF DISCHARGE INSTRUCTIONS.
== END 2017-05-31 16:47 | disposition home or self-care (01) | DRG 308 ==
LOC: ED 01:02 → EDHOLD 02:10 → 4E 02:10
PROVIDERS: Emergency Medicine Emergency Medical Services; Hospitalist; Internal Medicine Cardiovascular Disease; Internal Medicine Nephrology; ADMIT Internal Medicine
DX: I48.0 Paroxysmal atrial fibrillation (principal); J18.9 Pneumonia, unspecified organism; Z68.41 Body mass index [BMI] 40.0-44.9, adult; D68.59 Other primary thrombophilia; E66.01 Morbid (severe) obesity due to excess calories; K21.9 Gastro-esophageal reflux disease without esophagitis; I99.8 Other disorder of circulatory system; R07.89 Other chest pain; I10 Essential (primary) hypertension; E78.5 Hyperlipidemia, unspecified; E03.9 Hypothyroidism, unspecified; R73.9 Hyperglycemia, unspecified; E87.6 Hypokalemia; M48.00 Spinal stenosis, site unspecified; Z90.710 Acquired absence of both cervix and uterus; Z90.49 Acquired absence of other specified parts of digestive tract; Z82.49 Family history of ischemic heart disease and other diseases of the circulatory system; Z83.6 Family history of other diseases of the respiratory system; Z88.6 Allergy status to analgesic agent; Z91.011 Allergy to milk products; Z88.2 Allergy status to sulfonamides; Z88.8 Allergy status to other drugs, medicaments and biological substances; Z91.018 Allergy to other foods; Z79.82 Long term (current) use of aspirin; Z79.899 Other long term (current) drug therapy; Z85.3 Personal history of malignant neoplasm of breast; Z96.653 Presence of artificial knee joint, bilateral

== ENCOUNTER 2017-06-04 20:00 | Inpatient (IN) | payer OTHER ==
[~2017-06-04] VITALS: Ht 165.1 cm; Wt 104.9 kg
--- NOTE | ~2017-06-04 | O ---
[place], [place] OPERATIVE NOTE NAME: JERED SHAW UNIT #: [id number] ROOM: 406 DOCTOR: DYANA YBARRA MD BIRTHDATE: [birth year] DOS: The patient has presented with an upper GI bleed. The patient has been endoscopically assessed a few days ago. The patient has been placed on Sandostatin drip and PPI therapy because of the bleeding from duodenum site exactly unknown, however was recognized that she had fresh blood in the second and third part of her duodenum. She had diverticula in the duodenum at that time. She has been on Sandostatin continuous drip to prevent further bleeding. PROCEDURE: Today's procedure part of investigation is panendoscopy plus biopsy. PREMEDICATION: Versed and Diprivan. SCOPE: Olympus forward-viewing gastroscope Q10 video. REPORT: After putting the patient in the left lateral position and after application of lubricant to the scope, the scope was introduced. Thereafter, under direct visualization, I advanced through the length of esophagus without difficulty. Gastric pouch was entered. Hiatal hernia moderate size was seen. Gastritis noticed. Antrum biopsy obtained for H. pylori. Duodenum was entered. At junction of second and third part of duodenum, complex of large diverticula were identified. There is no evidence of bleeding; however, at this time, air was suctioned out. Photographic series obtained. The patient extubated, tolerated procedure well. IMPRESSION: Moderate-sized hiatal hernia, gastritis, multiple diverticula, large in size in second and third part of duodenum with no active bleeding; therefore, we are going to stop Sandostatin once this bag supply completes. We are going to elevate her to full liquid diet. We are going to have another H and H tomorrow morning. We are going to continue with PPI and sucralfate therapy. We are going to withhold anticoagulants at this time. She is very much exposed to rebleed; therefore, supportive management as long as it is possible without anticoagulation until we get mucosal rejuvenation hopefully by Monday, she will be safer for anticoagulation. [place], [place] OPERATIVE NOTE NAME: JERED SHAW UNIT #: [id number] ROOM: 406 DOCTOR: DYANA YBARRA MD BIRTHDATE: [birth year] DYANA YBARRA MD CM:SOYORD:OPERATIVE NOTE 1225 DYANA YBARRA MD 06/09/17 1311 interface
--- NOTE | ~2017-06-04 | O ---
[place], [place] OPERATIVE NOTE NAME: JERED SHAW UNIT #: [id number] ROOM: 406 DOCTOR: AMADA VOGT,DYANA BIRTHDATE: [birth year] DOS: GASTRO-ENDOSCOPIC REPORT INDICATIONS: An 81-year-old patient who has presented with chief complaint of anemia, undergoing investigation. The patient with the previous history of upper GI bleed, on anticoagulant. PROCEDURE: Today's procedure part of investigation is colonoscopy plus snare polypectomy. PREMEDICATION: Versed and Diprivan. SCOPE: Olympus forward-viewing colonoscope 10L video. REPORT: After putting the patient in the left lateral position and after application of lubricant to the scope, the scope was introduced. Thereafter, under direct visualization, I advanced through the length of colon without difficulty. Evidence of diverticulosis was appreciated in mid ascending colon, partially ____ and infiltrated polyp from the base deeply coagulated and then polypectomized with the snare and removed. Diverticulosis of sigmoid colon reassessed. Base of the cecum explored, appendiceal orifice identified, ileocecal valve was defined. The patient extubated, tolerated procedure well. IMPRESSION: Diverticulosis of sigmoid colon and polypoid lesion of mid ascending colon, status post snare polypectomy. PLAN: Resumption of feeding soft diet, clinical reassessment. DYANA YBARRA MD CM:OPRECORD:OPERATIVE NOTE 1938 21 DYANA YBARRA MD 06/12/172120 interface
--- NOTE | ~2017-06-04 | O ---
[place], [place] OPERATIVE NOTE NAME: JERED SHAW UNIT #: [id number] ROOM: 406 DOCTOR: AMADA [facility]ICAHUGH [facility] BIRTHDATE: [birth year] DOS: GASTRO-ENDOSCOPIC REPORT HISTORY OF PRESENT ILLNESS: This is an 81-year-old who has presented with multiple issues, among which has been epigastric distress and anemia, drop in H and H, guaiac positivity. The patient has been admitted for definitive evaluation. Initial H and H was 11.8 and 36 and prior to that had been 13 hemoglobin, however, H and H later has been 9 and 29. I have been asked for assessment of the patient in this regard. PAST MEDICAL HISTORY: Associated with hypertension, hypothyroidism, hyperlipidemia, obesity, atrial fibrillation, spinal stenosis, old history of breast CA. PAST SURGICAL HISTORY: Cholecystectomy; hysterectomy; lumpectomy; history of ERCPs, details unknown; total knee arthroscopy; shoulder repair. SOCIAL HISTORY: Nonsmoker, nonalcohol consumer. FAMILY HISTORY: Noncontributory. MEDICATIONS: List has been reviewed including Xarelto and aspirin, this plus ascorbic acid, all have been on hold. PROCEDURE: Today's procedure part of investigation is panendoscopy plus lavage of the esophagus with water. PREMEDICATION: Versed and Diprivan. SCOPE: Olympus forward-viewing gastroscope Q10 video. REPORT: After putting the patient in left lateral position and application of lubricant to the scope, the scope was introduced. Thereafter, under direct visualization, I advanced through the length of the esophagus without difficulty. Esophagus, cervicothoracic distally carefully examined. Gastric pouch was entered. A large hiatal hernia was noticed. Gastric pouch demonstrate some residual blood in the pouch. The duodenum was entered. Second part of the duodenum was approached. There were blood clots in the second part of the duodenum. Multiple large duodenal diverticulum were as well noticed. There were blood clots in this area. Cold water lavage of the area was done; however, we could not definitely identify a source, therefore hemobilia would become on differential diagnosis. We are concerned. Scope was gradually withdrawn along the lesser curvature. No biopsy obtained due to the fact the patient has been on aspirin and Xarelto; therefore, the patient was extubated, tolerated procedure well. IMPRESSION: Moderate size hiatal hernia, duodenal diverticulum, ambiguous source of blood clots in the duodenum, second and third part, ruling out hemobilia. [place], [place] OPERATIVE NOTE NAME: JERED SHAW UNIT #: [id number] ROOM: 406 DOCTOR: AMADA VOGT,DYANA BIRTHDATE: [birth year] PLAN AND DISCUSSION: 1. We are going to organize a CT scan of the abdomen and pelvis with attention to biliary anatomy. 2. We are going to start this patient on Sandostatin drip 50 mcg loading and 25 mcg continuous drip. We are going to have another CBC in the morning. We are going to keep her on ice cold liquid diet, i.e. ice cream, milk shake, ice popsicles and we are awaiting reports. The patient is going to be on Protonix 40 mg daily as well and clinical reassessment. Other adjunctive diagnoses has been already addressed in consultation report. Thank you very much indeed. DYANA YBARRA MD CM:OPRECORD:OPERATIVE NOTE 1102 1431 DYANA YBARRA MD 06/07/17 1431 interface
[~2017-06-04 20:00] MED LIST changes: +MULTAQ400 MG PO; +SIMVASTATIN10 MG PO; +TOPROL XL50 M1 PO
[2017-06-04 20:09] VITALS: BP 156/73
--- NOTE | 2017-06-04 20:15 | NUR ---
PER MD VERBAL ORDER,PT PLACED ON 2L O2 VIA NC.O2 SAT 98%.
[2017-06-04 20:34] LABS: BASO % 0.7 % (0.0-1.0); EOS # 0.1 10*3/uL (0.0-0.4); EOS % 0.9 % (1.0-4.0); HEMOGLOBIN 11.7 g/dl (12.0-16.0); LYMPH % 17.7 % (27.0-41.0); MEAN CELL VOLUME 97.6 fl (81.0-99.0); MEAN CORPUSCULAR HGB 31.7 pg (27.0-31.0); MEAN CORPUSCULAR HGB CONC 32.5 g/dl (33.0-37.0); MEAN PLATELET VOLUME 9.9 fl (9.6-12.3); MONO # 0.8 10*3/uL (0.1-1.0); MONO % 13.8 % (3.0-9.0); NEUT # 3.9 10*3/uL (2.3-7.9); NEUT % 66.2 % (47.0-73.0); PLATELET COUNT AUTOMATED 183 10*3/uL (130-400); RED BLOOD COUNT 3.69 10*6/uL (4.10-5.10); RED CELL DISTRI WIDTH 13.8 % (0-14.5); WHITE BLOOD COUNT 5.8 10*3/uL (4.8-10.8)
[2017-06-04 20:43] LABS: INTERNATIONAL NORM RATIO 1.5 (2.0-3.5)
[2017-06-04 20:51] LABS: ALBUMIN 3.2 gm/dl (3.1-4.5); CREATININE 1.17 mg/dL (0.55-1.02); MAGNESIUM 1.7 mg/dL (1.5-2.1); POTASSIUM 3.9 mmol/L (3.5-5.1); TOTAL PROTEIN 6.5 gm/dL (6.4-8.2); TROPONIN I 0.025 ng/ml (<0.045)
[2017-06-04 20:58] LABS: THYROID STIM HORMONE (HS) 10.2 uIU/ml (0.358-4.75)
[2017-06-04 22:22] VITALS: BP 160/69
[2017-06-04 23:45] VITALS: BP 122/50
--- NOTE | 2017-06-04 23:45 | NUR ---
A 81, admitted to 5E, under the services of ELISEO Starr DO with a diagnosis of CHF, AFIB. Chief complaint is SOB. Patient arrived via stretcher from ER. Monitor applied. Initial assessment completed. Vital signs taken and recorded. ELISEO STARR DO notified of admission to the unit. Orders received. See assessment for past medical history, medications and allergies. Patient and/or family oriented to unit. [facility] visitation policy reviewed. Clothing/patient valuable form completed. DADA GARCIA
[2017-06-04] MEDS ORDERED: CALCIUM 600 +1 EA10 PO (23:54)
[2017-06-05] VITALS: BP 122/50
--- NOTE | 2017-06-05 00:08 | NUR ---
MED REC UP TO DATE PER PT RECALL.
--- NOTE | 2017-06-05 00:17 | NUR ---
SPOKE TO AT THIS TIME REGARDING ADMISSION ORDERS. DISCUSSED PERTINENT PATIENT DEMOGRAPHICS INCLUDING DIAGNOSIS, HISTORY, MEDICATIONS ADMINISTERED IN ER, HEART RATE 40S-50S PER CM, AND CLINICAL S/S. STATES HE WILL PUT IN ADMISSION ORDERS.
--- NOTE | 2017-06-05 01:25 | NUR ---
PHOTO TAKEN OF OPEN AREA TO LEFT CHEEK AT THIS TIME.
[2017-06-05 06:26] LABS: BASO # 0.1 10*3/uL (0.0-0.1); BASO % 0.7 % (0.0-1.0); EOS # 0.1 10*3/uL (0.0-0.4); EOS % 0.9 % (1.0-4.0); HEMATOCRIT 33.4 % (37.0-47.0); HEMOGLOBIN 10.9 g/dl (12.0-16.0); LYMPH # 1.5 10*3/uL (1.3-4.4); LYMPH % 19.9 % (27.0-41.0); MEAN CELL VOLUME 96.8 fl (81.0-99.0); MEAN CORPUSCULAR HGB 31.6 pg (27.0-31.0); MEAN CORPUSCULAR HGB CONC 32.6 g/dl (33.0-37.0); MEAN PLATELET VOLUME 10.8 fl (9.6-12.3); MONO # 1.2 10*3/uL (0.1-1.0); MONO % 15.6 % (3.0-9.0); NEUT # 4.8 10*3/uL (2.3-7.9); NEUT % 62.5 % (47.0-73.0); PLATELET COUNT AUTOMATED 186 10*3/uL (130-400); RED BLOOD COUNT 3.45 10*6/uL (4.10-5.10); WHITE BLOOD COUNT 7.7 10*3/uL (4.8-10.8)
[2017-06-05 06:30] LABS: ALBUMIN 3.1 gm/dl (3.1-4.5); ALKALINE PHOSPHATASE 78 U/L (45-117); CHLORIDE 102 mmol/L (98-107); CREATININE 1.01 mg/dL (0.55-1.02); MAGNESIUM 1.8 mg/dL (1.5-2.1); PHOSPHOROUS 2.9 mg/dL (2.5-4.9); POTASSIUM 3.4 mmol/L (3.5-5.1); SGOT/AST 13 IU/L (3-35); SGPT/ALT 15 U/L (12-78); SODIUM 139 mmol/L (136-145); TOTAL PROTEIN 6.2 gm/dL (6.4-8.2)
[2017-06-05 06:31] LABS: BUN 47 mg/dl (7-24)
[2017-06-05 06:48] LABS: ACT PARTIAL THROMBO TIME 31.7 SECONDS (20.8-31.5); INTERNATIONAL NORM RATIO 1.3 (2.0-3.5)
[2017-06-05 08:00] VITALS: BP 118/60
--- NOTE | 2017-06-05 08:00 | NUR ---
SHIFT ASSESSMENT COMPLETE. PATIENT VOICES NO COMPLAINTS AT THIS TIME. BED IS IN LOW POSITION. CALL LIGHT IS WITHIN REACH.
--- NOTE | 2017-06-05 09:00 | NUR ---
Nail Expert in to talk to patient. Patient states lives at home with alone. There are few steps in the home. Physician: ladonna babb Pharmacy: [facility] [place] [facility]: none Patient's level of ADLs: INDEPENDENT Patient has working utilities: all working DME: cane, shower chair, walker Follow-up physician's appointment after d/c: will be made by hospitalist nurse director upon discharge Does patient want to access PORTAL?: no Discharge plan discussed with patient, patient has had many hospital visits in the past few weeks, discussed with her a short term long-term or VNA, patient refused both, stated that she would be going back home and that her daughter was near by if she needed any thing, patient drives. case management will follow. NENA SAMAYOA
[2017-06-05 12:00] VITALS: BP 116/50
--- NOTE | 2017-06-05 14:20 | NUR ---
PATIENT TRANSFERED TO THE ICU BY BED.
--- NOTE | 2017-06-05 14:21 | NUR ---
PT TRANSFERED TO ICCU AT THIS TIME. PT IS ALERT AND ORIENTED. NO ACUTE DISTRESS NOTED. BP 156/62, POX 97% ON RA. PT DENIES ANY C/O PAIN OR SHORTNESS OF BREATH AT THIS TIME. NSR RATE 60'S ON THE MONITOR. LUNGS CLEAR.
--- NOTE | 2017-06-05 15:02 | NUR ---
DR YBARRA MADE AWARE OF NEW CONSULT ORDER.
[2017-06-05 16:00] VITALS: BP 143/72
--- NOTE | 2017-06-05 17:12 | NUR ---
SCD'S PLACED ON PT.
[2017-06-05 20:00] VITALS: BP 131/52
--- NOTE | 2017-06-05 20:30 | NUR ---
Patient resting quietly with no c/o discomfort. Respirations easy and regular. Vital signs stable. No overt distress. SHARAD PÉREZ
[2017-06-06] VITALS: BP 137/47
--- NOTE | 2017-06-06 | NUR ---
Patient resting quietly with no c/o discomfort. Respirations easy and regular. Vital signs stable. No overt distress. ASSISTED TO BSC. SHARAD PÉREZ
[2017-06-06 01:03] LABS: BILIRUBIN NEGATIVE (NEGATIVE); BLOOD NEGATIVE (NEGATIVE); CLARITY CLEAR (CLEAR); COLOR YELLOW (YELLOW); GLUCOSE NEGATIVE (NEGATIVE); KETONE NEGATIVE (NEGATIVE); LEUKO ESTERASE TRACE (NEGATIVE); NITRITE NEGATIVE (NEGATIVE); PH 5.5 (5.0-9.0); SPECIFIC GRAVITY 1.015 (1.005-1.030); UROBILINOGEN 0.2 E.U./dl (0.2-1.0)
[2017-06-06 01:11] LABS: EPITHELIAL CELLS 25-30
[2017-06-06 01:12] LABS: BACTERIA TRACE
--- NOTE | 2017-06-06 03:37 | NUR ---
24 HR chart check completed.
[2017-06-06 04:00] VITALS: BP 110/75
--- NOTE | 2017-06-06 04:15 | NUR ---
Patient resting quietly with no c/o discomfort. Respirations easy and regular. Vital signs stable. No overt distress. SHARAD PÉREZ
[2017-06-06 04:18] LABS: BASO # 0.1 10*3/uL (0.0-0.1); BASO % 0.6 % (0.0-1.0); EOS # 0.1 10*3/uL (0.0-0.4); EOS % 0.5 % (1.0-4.0); HEMATOCRIT 32.7 % (37.0-47.0); HEMOGLOBIN 10.4 g/dl (12.0-16.0); LYMPH # 2.1 10*3/uL (1.3-4.4); LYMPH % 22.1 % (27.0-41.0); MEAN CELL VOLUME 97.9 fl (81.0-99.0); MEAN CORPUSCULAR HGB 31.1 pg (27.0-31.0); MEAN CORPUSCULAR HGB CONC 31.8 g/dl (33.0-37.0); MEAN PLATELET VOLUME 10.3 fl (9.6-12.3); MONO # 1.4 10*3/uL (0.1-1.0); NEUT # 5.8 10*3/uL (2.3-7.9); NEUT % 61.4 % (47.0-73.0); PLATELET COUNT AUTOMATED 213 10*3/uL (130-400); RED BLOOD COUNT 3.34 10*6/uL (4.10-5.10); RED CELL DISTRI WIDTH 14.4 % (0-14.5); WHITE BLOOD COUNT 9.5 10*3/uL (4.8-10.8)
[2017-06-06 04:45] LABS: ALBUMIN 3.4 gm/dl (3.1-4.5); ALKALINE PHOSPHATASE 80 U/L (45-117); CHLORIDE 100 mmol/L (98-107); CREATININE 0.99 mg/dL (0.55-1.02); FREE T4 0.72 ng/dl (0.76-1.46); IRON 97 ug/dL (50-170); POTASSIUM 3.4 mmol/L (3.5-5.1); SGOT/AST 12 IU/L (3-35); SGPT/ALT 12 U/L (12-78); SODIUM 139 mmol/L (136-145); TOTAL IRON BINDING CAPACITY 298 ug/dl (250-450); TOTAL PROTEIN 6.6 gm/dL (6.4-8.2)
[2017-06-06 04:47] LABS: BUN 64 mg/dl (7-24)
[2017-06-06 08:00] VITALS: BP 109/80
--- NOTE | 2017-06-06 09:30 | NUR ---
MIRANDA CAMARA AWARE OF PATIENT GOING FROM NSR TO AFIB. HOME MEDS ORDERED.
[2017-06-06 12:00] VITALS: BP 100/46
--- NOTE | 2017-06-06 12:33 | NUR ---
PATIENT TO BE TRANSFERED TO STEP DOWN.
--- NOTE | 2017-06-06 12:55 | NUR ---
PATIENT ARRIVED TO FLOOR FROM UNIT NURSE TO NURSE REPORT RECEIVED
--- NOTE | 2017-06-06 13:00 | NUR ---
PATIENT TRANSFERED TO [facility] WITH BELONGINGS NURSE TO NURSE REPORT GIVEN.
[2017-06-06 16:07] VITALS: BP 106/62
[2017-06-06 20:00] VITALS: BP 120/85
[2017-06-07] VITALS (17 sets, daily range): BP systolic 95–157; BP diastolic 39–85
[2017-06-07 06:10] LABS: ALBUMIN 3.2 gm/dl (3.1-4.5); CREATININE 1.26 mg/dL (0.55-1.02); POTASSIUM 3.5 mmol/L (3.5-5.1); TOTAL PROTEIN 6.1 gm/dL (6.4-8.2)
[2017-06-07 06:22] LABS: BASO % 0.4 % (0.0-1.0); EOS # 0.1 10*3/uL (0.0-0.4); EOS % 0.8 % (1.0-4.0); HEMATOCRIT 29.1 % (37.0-47.0); HEMOGLOBIN 9.2 g/dl (12.0-16.0); LYMPH # 1.5 10*3/uL (1.3-4.4); MEAN CORPUSCULAR HGB 31.6 pg (27.0-31.0); MEAN CORPUSCULAR HGB CONC 31.6 g/dl (33.0-37.0); MEAN PLATELET VOLUME 11.1 fl (9.6-12.3); MONO # 1.1 10*3/uL (0.1-1.0); MONO % 12.8 % (3.0-9.0); NEUT # 6.1 10*3/uL (2.3-7.9); NEUT % 68.6 % (47.0-73.0); PLATELET COUNT AUTOMATED 238 10*3/uL (130-400); RED BLOOD COUNT 2.91 10*6/uL (4.10-5.10); RED CELL DISTRI WIDTH 14.8 % (0-14.5); WHITE BLOOD COUNT 8.9 10*3/uL (4.8-10.8)
--- NOTE | 2017-06-07 09:25 | NUR ---
case management visits with patient, patient denies any home needs
--- NOTE | 2017-06-07 09:51 | NUR ---
TAKEN TO OR FOR EGD VIA CART.
--- NOTE | 2017-06-07 12:01 | NUR ---
RETURNED FROM OR. REPORT RECIEVED. SANDOSTATIN GTT AND CT PREP STARTED.
[2017-06-07 12:05] LABS: HEMATOCRIT 29.5 % (37.0-47.0); HEMOGLOBIN 9.5 g/dl (12.0-16.0)
--- NOTE | 2017-06-07 16:55 | NUR ---
DR YBARRA CALLED. ORDERED MILK SHAKE, ICE CREAM, ENSURE, AND COLD LIQUID DIET ONLY. ALSO ORDERED H/H FOR THE MORNING AND STATED TO CALL DR. YBARRA FOR THE RESULTS.
[2017-06-07 18:35] LABS: HEMATOCRIT 24.5 % (37.0-47.0); HEMOGLOBIN 8.3 g/dl (12.0-16.0)
--- NOTE | 2017-06-07 18:38 | NUR ---
MIRANDA CAMARA NOTIFIED OF H/H RESULT. MIRANDA ORDERED 1 UNIT BLOOD TO BE TRANSFUSED STAT. NO OTHER CONCERNS FROM MIRANDA CAMARA
--- NOTE | 2017-06-07 23:53 | NUR ---
Medicated with Zofran IV prn for nausea/vomiting. Will monitor effectiveness. Call light within reach.
[2017-06-08] VITALS: BP 127/50
--- NOTE | 2017-06-08 00:39 | NUR ---
24 HR chart check completed.
[2017-06-08 00:57] LABS: HEMATOCRIT 28.5 % (37.0-47.0); HEMOGLOBIN 9.9 g/dl (12.0-16.0)
--- NOTE | 2017-06-08 01:00 | NUR ---
Patient resting quietly in bed. Nurse asked patient if Zofran helped. Patient says "yes, I feel so much better." Zofran effective. Will continue to monitor. Call light within reach.
[2017-06-08 06:55] LABS: BASO % 0.2 % (0.0-1.0); EOS # 0.1 10*3/uL (0.0-0.4); EOS % 0.5 % (1.0-4.0); HEMATOCRIT 28.2 % (37.0-47.0); LYMPH # 1.1 10*3/uL (1.3-4.4); LYMPH % 8.5 % (27.0-41.0); MEAN CELL VOLUME 92.2 fl (81.0-99.0); MEAN CORPUSCULAR HGB 32.7 pg (27.0-31.0); MEAN CORPUSCULAR HGB CONC 35.5 g/dl (33.0-37.0); MEAN PLATELET VOLUME 10.8 fl (9.6-12.3); MONO # 1.4 10*3/uL (0.1-1.0); MONO % 10.2 % (3.0-9.0); NEUT # 10.6 10*3/uL (2.3-7.9); NEUT % 80.2 % (47.0-73.0); PLATELET COUNT AUTOMATED 179 10*3/uL (130-400); RED BLOOD COUNT 3.06 10*6/uL (4.10-5.10); WHITE BLOOD COUNT 13.2 10*3/uL (4.8-10.8)
[2017-06-08 07:15] LABS: ALBUMIN 3.1 gm/dl (3.1-4.5); CREATININE 1.19 mg/dL (0.55-1.02); POTASSIUM 4.1 mmol/L (3.5-5.1); TOTAL PROTEIN 5.8 gm/dL (6.4-8.2)
[2017-06-08 08:00] VITALS: BP 152/60
--- NOTE | 2017-06-08 08:47 | NUR ---
PT RESTING IN BED, NO DISTRESS NOTED. WILL MONITOR
--- NOTE | 2017-06-08 09:00 | NUR ---
case managment visits with patient, again discussed a discharge plan, patient stated she would be going home, again discussed VNA and informed patient of their services, patient refused any VNA at this time
--- NOTE | 2017-06-08 10:14 | NUR ---
dr mera notified of h/h results
[2017-06-08 12:00] VITALS: BP 123/88
[2017-06-08 12:12] LABS: HEMATOCRIT 29.4 % (37.0-47.0); HEMOGLOBIN 9.8 g/dl (12.0-16.0)
[2017-06-08 16:00] VITALS: BP 113/77
--- NOTE | 2017-06-08 16:00 | NUR ---
HOB ELEVATED, EASY RESPIRATIONS WITH SKIN W/D. PT DENIES C/O AT PRESENT TIME. ABD SOFT WITH HYPOACTIVE BS NOTED, PT DENIES TENDERNESS UPON PALPATION. IVF PER ORDERS. SEE SHIFT ASSESSMENT.
[2017-06-08 17:46] LABS: HEMATOCRIT 26.7 % (37.0-47.0); HEMOGLOBIN 9.3 g/dl (12.0-16.0)
--- NOTE | 2017-06-08 17:58 | NUR ---
SPOKE WITH DR YBARRA & REGARDING POSSIBLE COLONOSCOPY. PER DR YBARRA, NO COLONOSCOPY TO BE SCHEDULED BUT TO KEEP PT NPO FOR POSSIBLE EGD IN AM IF H&H DROPS. DR SINGLETON CALLED AT 0600 WITH H&H TO DETERMINE IF PT IS GOING TO HAVE COLONOSCOPY. SHIFT DIRECTOR NICOLAS CAMPO NOTIFIED.
--- NOTE | 2017-06-08 18:31 | NUR ---
ATE & TOLERATED COLD LIQUID DIET THIS SHIFT. NO OBVIOUS S/S ACTIVE BLEEDING NOTED THIS SHIFT.
[2017-06-08 20:00] VITALS: BP 102/48
--- NOTE | 2017-06-08 20:00 | NUR ---
ASSUMED CARE OF PATIENT. ASSESSMENT COMPLETE. RESTING IN BED. DENIES FURTHER NEEDS AT THIS TIME. CALL LIGHT IN REACH. WILL CONTINUE TO MONITOR.
[2017-06-09] VITALS (8 sets, daily range): BP systolic 103–148; BP diastolic 42–86
[2017-06-09 00:40] LABS: HEMATOCRIT 26.5 % (37.0-47.0); HEMOGLOBIN 9.1 g/dl (12.0-16.0)
--- NOTE | 2017-06-09 00:51 | NUR ---
24 HR chart check completed.
[2017-06-09 06:32] LABS: HEMATOCRIT 27.2 % (37.0-47.0); HEMOGLOBIN 9.4 g/dl (12.0-16.0)
--- NOTE | 2017-06-09 07:09 | NUR ---
MESSAGE LEFT ON DR YBARRA'S CELL PHONE REGARDING H&H RESULTS. WILL AWAIT FURTHER ORDERS.
--- NOTE | 2017-06-09 08:06 | NUR ---
RESTING COMFORTABLY WITH NO VOICED C/O OFFERED. DENIES NAUSEA OR ABD DISCOMFORT. DISCUSSED NPO STATUS FOR AM PROCEDURE, PT VOICES UNDERSTANDING. PT BEING CARED FOR BY [facility] STUDENT NURSE, WILL CONTINUE TO MONITOR.
--- NOTE | 2017-06-09 09:27 | NUR ---
case management visits with patient, patient denies any home needs
--- NOTE | 2017-06-09 10:30 | NUR ---
Returned to bed from recliner chair. Denies any c/o pain or discomfort. Remains NPO. To OR via bed. Anne Marie ARAGON
--- NOTE | 2017-06-09 13:11 | NUR ---
RETURN FROM OR, CONDITION UNCHANGED.
[2017-06-09 14:13] LABS: HEMATOCRIT 28.6 % (37.0-47.0); HEMOGLOBIN 9.9 g/dl (12.0-16.0)
--- NOTE | 2017-06-09 16:55 | NUR ---
RESTING WITH DTR AT BEDSIDE, NO OBVIOUS S/S ACTIVE BLEEDING NOTED THIS SHIFT. PT STATES "FEELING ALOT BETTER"
[2017-06-09 18:10] LABS: HEMATOCRIT 27.9 % (37.0-47.0); HEMOGLOBIN 9.6 g/dl (12.0-16.0)
--- NOTE | 2017-06-09 20:00 | NUR ---
AAOX3 RESTING IN BED WITH HOB ELEVATED. 02 INTACT AT 2LPM VIA NASAL CANNULA. LUNGS DIMINISHED BILATERALLY WITH RALES NOTED IN THE BASES BILATERALLY. PT. HAS AN OCCASIONAL MOIST COUGH PRODUCTIVE FOR CLEAR WHITE SPUTUM PER PT. ABDOMEN OBESE WITH NORMOACTIVE BOWEL SOUNDS. OXANA HOSE INTACT BILATERALLY; EDEMA NOTED TO BILATERAL LOWER EXTREMITIES. PT. VOICES NO C/O AT THIS TIME; CALL LIGHT WITHIN REACH.
--- NOTE | 2017-06-09 22:15 | NUR ---
CALLED DR. BOLANOS PERTAINING TO PT'S HEART RATE; ORDER RECEIVED TO HOLD LOPRESSOR.
[2017-06-10] VITALS: BP 96/66
--- NOTE | 2017-06-10 02:00 | NUR ---
RESTING IN BED WITH EYES CLOSED. CALL LIGHT WITHIN REACH.
--- NOTE | 2017-06-10 06:00 | NUR ---
TOOK PO MEDICATION WITHOUT DIFFICULTY. VOICES NO C/O AT THIS TIME. CALL LIGHT WITHIN REACH.
[2017-06-10 06:14] LABS: HEMATOCRIT 27.5 % (37.0-47.0)
[2017-06-10 08:42] VITALS: BP 102/62
--- NOTE | 2017-06-10 11:15 | NUR ---
Spoke with Dr. Simms regarding order for sandostatin gtt. Notified in report that it was DC but it is still on EMAR. Dr. Simms post-op note states that sandostatin would be dc after that bag was completed which it was. Notified Dr. Simms of this and he states yes he wanted it DC when it was. Order entered in computer. Reviewed last two H and H results with Dr. Stephenson. States to dc q6 hour h and h and order one for in the am. He also requests call at 10 am tomorrow with results. States to advance pt diet to soft.
[2017-06-10 12:00] VITALS: BP 136/64
[2017-06-10 16:00] VITALS: BP 110/71
[2017-06-10 20:00] VITALS: BP 113/75; BP 134/52
--- NOTE | 2017-06-10 20:00 | NUR ---
AWAKE & ALERT RESTING IN BED. HEP LOCK INTACT TO THE RIGHT ANTECUBITAL; SITE ASYMPTOMATIC. SKIN WARM & DRY. LUNGS DIMINISHED WITH NO COUGH NOTED AT THIS TIME. PULSE OX 94% ON ROOM AIR. PT. VOICES NO C/O AT THIS TIME. CALL LIGHT WITHIN REACH.
[2017-06-11] VITALS: BP 118/65
[2017-06-11 06:37] LABS: HEMATOCRIT 27.8 % (37.0-47.0); HEMOGLOBIN 9.2 g/dl (12.0-16.0)
[2017-06-11 08:00] VITALS: BP 142/60
--- NOTE | 2017-06-11 09:00 | NUR ---
Patient resting quietly with no c/o discomfort. Respirations easy and regular. Vital signs stable. No overt distress. WEN MUNIZ R
[2017-06-11 12:00] VITALS: BP 135/68
[2017-06-11 16:00] VITALS: BP 110/70
--- NOTE | 2017-06-11 19:40 | NUR ---
PT. AWAKE, ALERT AND ORIENTED X 3. PT. IN BED AT THIS TIME, CALL LIGHT WITHIN REACH, BED IN LOWEST POSITION, WHEELS LOCKED. PT. CURRENTLY DENIES SOB, CP, OR PAIN. SEE SHIFT ASSESSMENT.
[2017-06-11 20:00] VITALS: BP 118/49
[2017-06-12] VITALS (9 sets, daily range): BP systolic 111–157; BP diastolic 47–83
[2017-06-12 05:24] LABS: BUN 19 mg/dl (7-24); CHLORIDE 107 mmol/L (98-107); CREATININE 0.88 mg/dL (0.55-1.02); POTASSIUM 3.9 mmol/L (3.5-5.1); SODIUM 142 mmol/L (136-145)
[2017-06-12 06:10] LABS: BASO % 0.6 % (0.0-1.0); EOS # 0.1 10*3/uL (0.0-0.4); EOS % 1.7 % (1.0-4.0); HEMATOCRIT 27.8 % (37.0-47.0); HEMOGLOBIN 9.2 g/dl (12.0-16.0); LYMPH # 1.6 10*3/uL (1.3-4.4); LYMPH % 23.9 % (27.0-41.0); MEAN CELL VOLUME 97.2 fl (81.0-99.0); MEAN CORPUSCULAR HGB 32.2 pg (27.0-31.0); MEAN CORPUSCULAR HGB CONC 33.1 g/dl (33.0-37.0); MEAN PLATELET VOLUME 11.2 fl (9.6-12.3); MONO % 15.9 % (3.0-9.0); NEUT # 3.7 10*3/uL (2.3-7.9); NEUT % 56.8 % (47.0-73.0); PLATELET COUNT AUTOMATED 209 10*3/uL (130-400); RED BLOOD COUNT 2.86 10*6/uL (4.10-5.10); RED CELL DISTRI WIDTH 15.9 % (0-14.5); WHITE BLOOD COUNT 6.5 10*3/uL (4.8-10.8)
--- NOTE | 2017-06-12 08:30 | NUR ---
Patient resting quietly with no c/o discomfort. Respirations easy and regular. Vital signs stable. No overt distress. WEN MUNIZ R
--- NOTE | 2017-06-12 09:00 | NUR ---
case management visits with patient, patient denies any home needs
--- NOTE | 2017-06-12 10:28 | NUR ---
DR MCMANUS ON FLOOR AND UPDATED ON COLO TODAY WITH DR YBARRA
--- NOTE | 2017-06-12 15:40 | NUR ---
TAP WATER ENEMA GIVEN PT TOLERATING WELL. LIGHT BROWN WATERY STOOL NOTED. WILL MONITOR
--- NOTE | 2017-06-12 15:59 | NUR ---
JERED IS PASSING CLEAR WATERY STOOL AFTER TAP WATER ENEMA.
--- NOTE | 2017-06-12 17:37 | NUR ---
PT LEFT FOR SURGERY.
--- NOTE | 2017-06-12 20:08 | NUR ---
PT RETURNED TO FLOOR FROM SURGERY. DR. YBARRA PHONED THIS NURSE WITH COLONOSCOPY RESULTS OF DIVERTICULOSIS AND A MID ASCENDING POLYP REMOVAL. OK TO RESUME SOFT DIET ORDER.
[2017-06-13] VITALS: BP 142/46
--- NOTE | 2017-06-13 04:42 | NUR ---
24 HR chart check completed.
[2017-06-13 06:39] LABS: BASO % 0.4 % (0.0-1.0); EOS # 0.1 10*3/uL (0.0-0.4); EOS % 1.8 % (1.0-4.0); HEMATOCRIT 28.5 % (37.0-47.0); HEMOGLOBIN 9.2 g/dl (12.0-16.0); LYMPH # 1.3 10*3/uL (1.3-4.4); LYMPH % 17.5 % (27.0-41.0); MEAN CELL VOLUME 97.3 fl (81.0-99.0); MEAN CORPUSCULAR HGB 31.4 pg (27.0-31.0); MEAN CORPUSCULAR HGB CONC 32.3 g/dl (33.0-37.0); MEAN PLATELET VOLUME 10.2 fl (9.6-12.3); MONO % 13.9 % (3.0-9.0); NEUT # 4.7 10*3/uL (2.3-7.9); NEUT % 65.8 % (47.0-73.0); PLATELET COUNT AUTOMATED 217 10*3/uL (130-400); RED BLOOD COUNT 2.93 10*6/uL (4.10-5.10); RED CELL DISTRI WIDTH 15.8 % (0-14.5); WHITE BLOOD COUNT 7.1 10*3/uL (4.8-10.8)
[2017-06-13 06:45] LABS: ALBUMIN 2.8 gm/dl (3.1-4.5); BUN 14 mg/dl (7-24); CHLORIDE 105 mmol/L (98-107); POTASSIUM 3.2 mmol/L (3.5-5.1); SGOT/AST 16 IU/L (3-35); SGPT/ALT 12 U/L (12-78); SODIUM 139 mmol/L (136-145)
--- NOTE | 2017-06-13 06:46 | NUR ---
PT STATES SHE SLEPT WELL. NO C/O VOICED AT PRESENT TIME.
[2017-06-13 06:47] LABS: ALKALINE PHOSPHATASE 68 U/L (45-117); TOTAL PROTEIN 5.7 gm/dL (6.4-8.2)
[2017-06-13 08:00] VITALS: BP 111/73
--- NOTE | 2017-06-13 09:00 | NUR ---
case management visits with patient, patient denies any home needs, discussed with her vna and patient again refused any
[2017-06-13 12:00] VITALS: BP 137/50
--- NOTE | 2017-06-13 14:13 | NUR ---
HOSPICE NOTIFIED OF POA IS HERE AND WAITING.
[2017-06-13] MEDS ORDERED: PHARMASSURE VI500 MG PO (14:43)
[2017-06-13] MEDS ORDERED: SYNTHROID,LEV125 MCG PO (14:43)
[2017-06-13] MEDS ORDERED: TYLENOL325 M2 PO (14:43)
[2017-06-13] MEDS ORDERED: Carafate1 GM/10 ML PO (14:45)
[2017-06-13] MEDS ORDERED: PANTOPRAZOLE SO40 MG PO (14:45)
--- NOTE | 2017-06-13 16:53 | NUR ---
Discharge instructions reviewed with patient/family. Patient receptive and verbalizes understanding. Follow-up care arranged. Written instructions given to patient/family. EMILY ANGELES
== END 2017-06-13 16:53 | disposition home or self-care (01) | DRG 377 ==
LOC: ED 20:00 → EDHOLD 22:25 → ICCU 22:25 → 5E 22:25 → 4E 22:25 → 5E 22:36 → ICCU 06-05 14:23 → 4E 06-06 12:51
PROVIDERS: Emergency Medicine; Emergency Medicine Emergency Medical Services; Family Medicine Adult Medicine; Hospitalist; Internal Medicine; Internal Medicine Gastroenterology; Registered Nurse; ADMIT Internal Medicine
PROC: 30233N1 Transfusion of Nonautologous Red Blood Cells into Peripheral Vein, Percutaneous Approach (ICD-10-PCS; 2017-06-07)
PROC: 0DJ08ZZ Inspection of Upper Intestinal Tract, Via Natural or Artificial Opening Endoscopic (ICD-10-PCS; 2017-06-07)
PROC: 0DB78ZX Excision of Stomach, Pylorus, Via Natural or Artificial Opening Endoscopic, Diagnostic (ICD-10-PCS; principal; 2017-06-09)
PROC: 0DBK8ZX Excision of Ascending Colon, Via Natural or Artificial Opening Endoscopic, Diagnostic (ICD-10-PCS; 2017-06-12)
DX: K92.2 Gastrointestinal hemorrhage, unspecified (principal); N17.0 Acute kidney failure with tubular necrosis; E44.0 Moderate protein-calorie malnutrition; I48.0 Paroxysmal atrial fibrillation; E66.01 Morbid (severe) obesity due to excess calories; E55.9 Vitamin D deficiency, unspecified; K63.5 Polyp of colon; I10 Essential (primary) hypertension; D62 Acute posthemorrhagic anemia; K44.9 Diaphragmatic hernia without obstruction or gangrene; E03.9 Hypothyroidism, unspecified; E78.5 Hyperlipidemia, unspecified; E87.6 Hypokalemia; D72.810 Lymphocytopenia; M48.00 Spinal stenosis, site unspecified; Z96.659 Presence of unspecified artificial knee joint; Z88.0 Allergy status to penicillin; Z88.2 Allergy status to sulfonamides; Z91.018 Allergy to other foods; Z88.8 Allergy status to other drugs, medicaments and biological substances; Z85.3 Personal history of malignant neoplasm of breast; Z90.710 Acquired absence of both cervix and uterus; Z90.49 Acquired absence of other specified parts of digestive tract; Z82.49 Family history of ischemic heart disease and other diseases of the circulatory system; Z83.3 Family history of diabetes mellitus; Z82.5 Family history of asthma and other chronic lower respiratory diseases; Z79.82 Long term (current) use of aspirin; Z79.899 Other long term (current) drug therapy; Z79.01 Long term (current) use of anticoagulants; Z68.38 Body mass index [BMI] 38.0-38.9, adult

== ENCOUNTER → 2018-01-18 | Outpatient (CLI) | payer OTHER ==
[~2018-01-18] MED LIST changes: +CALCIUM 600 +1 EA10 PO; +Carafate1 GM/10 ML PO; +FOSAMAX70 M1 PO; +LOSARTAN POTAS100 M1 PO; +PANTOPRAZOLE SO40 MG PO; +PHARMASSURE VI500 MG PO; +SYNTHROID,LEV125 MCG PO; +TYLENOL325 M2 PO
== END ==
LOC: RAD 02:24
DX: Z13.820 Encounter for screening for osteoporosis (principal); M81.0 Age-related osteoporosis without current pathological fracture; N95.9 Unspecified menopausal and perimenopausal disorder; R29.890 Loss of height

== ENCOUNTER 2018-02-16 01:39 | Inpatient (IN) | payer OTHER ==
[~2018-02-16] VITALS: Ht 160 cm; Wt 102.1 kg
[~2018-02-16 01:39] MED LIST changes: -FOSAMAX70 M1 PO; -LOSARTAN POTAS100 M1 PO
[2018-02-16 01:49] VITALS: BP 150/80
[2018-02-16 02:06] LABS: BASO % 0.6 % (0.0-1.0); EOS # 0.1 10*3/uL (0.0-0.4); EOS % 1.3 % (1.0-4.0); HEMATOCRIT 39.4 % (37.0-47.0); HEMOGLOBIN 12.8 g/dl (12.0-16.0); LYMPH # 1.4 10*3/uL (1.3-4.4); LYMPH % 19.9 % (27.0-41.0); MEAN CELL VOLUME 98.5 fl (81.0-99.0); MEAN CORPUSCULAR HGB CONC 32.5 g/dl (33.0-37.0); MEAN PLATELET VOLUME 9.9 fl (9.6-12.3); MONO # 0.9 10*3/uL (0.1-1.0); MONO % 13.2 % (3.0-9.0); NEUT # 4.5 10*3/uL (2.3-7.9); NEUT % 64.7 % (47.0-73.0); PLATELET COUNT AUTOMATED 163 10*3/uL (130-400); RED CELL DISTRI WIDTH 13.3 % (0-14.5)
[2018-02-16] MEDS ORDERED: LOSARTAN POTAS100 M1 PO (02:21)
[2018-02-16] MEDS ORDERED: FOSAMAX70 M1 PO (02:23)
[2018-02-16 02:34] LABS: INTERNATIONAL NORM RATIO 1.2 (2.0-3.5)
[2018-02-16 02:40] LABS: ALBUMIN 3.5 gm/dl (3.1-4.5); ALKALINE PHOSPHATASE 96 U/L (45-117); BUN 21 mg/dl (7-24); CHLORIDE 104 mmol/L (98-107); CREATININE 0.83 mg/dL (0.55-1.02); POTASSIUM 3.4 mmol/L (3.5-5.1); SGOT/AST 18 IU/L (3-35); SGPT/ALT 17 U/L (12-78); SODIUM 142 mmol/L (136-145); TOTAL PROTEIN 6.3 gm/dL (6.4-8.2)
[2018-02-16 02:41] LABS: TROPONIN I 0.027 ng/ml (<0.045)
[2018-02-16 02:43] VITALS: BP 168/76
[2018-02-16 02:47] LABS: THYROID STIM HORMONE (HS) 0.138 uIU/ml (0.358-4.75)
[2018-02-16 03:35] LABS: BILIRUBIN NEGATIVE (NEGATIVE); BLOOD NEGATIVE (NEGATIVE); CLARITY CLEAR (CLEAR); COLOR YELLOW (YELLOW); GLUCOSE NEGATIVE (NEGATIVE); KETONE NEGATIVE (NEGATIVE); LEUKO ESTERASE TRACE (NEGATIVE); NITRITE NEGATIVE (NEGATIVE); PH 5.5 (5.0-9.0); SPECIFIC GRAVITY <= 1.005 (1.005-1.030); UROBILINOGEN 0.2 E.U./dl (0.2-1.0)
[2018-02-16 03:57] VITALS: BP 124/83
[2018-02-16 04:00] VITALS: BP 124/83
[2018-02-16 04:12] LABS: BACTERIA 1+; EPITHELIAL CELLS 25-30
[2018-02-16 05:57] LABS: BASO % 0.5 % (0.0-1.0); EOS # 0.1 10*3/uL (0.0-0.4); HEMATOCRIT 39.4 % (37.0-47.0); HEMOGLOBIN 12.8 g/dl (12.0-16.0); LYMPH # 1.3 10*3/uL (1.3-4.4); LYMPH % 21.1 % (27.0-41.0); MEAN CELL VOLUME 98.7 fl (81.0-99.0); MEAN CORPUSCULAR HGB 32.1 pg (27.0-31.0); MEAN CORPUSCULAR HGB CONC 32.5 g/dl (33.0-37.0); MEAN PLATELET VOLUME 9.8 fl (9.6-12.3); MONO # 0.8 10*3/uL (0.1-1.0); MONO % 13.5 % (3.0-9.0); NEUT # 3.8 10*3/uL (2.3-7.9); NEUT % 63.4 % (47.0-73.0); PLATELET COUNT AUTOMATED 165 10*3/uL (130-400); RED BLOOD COUNT 3.99 10*6/uL (4.10-5.10); RED CELL DISTRI WIDTH 13.3 % (0-14.5)
[2018-02-16 06:09] LABS: BUN 18 mg/dl (7-24); CHLORIDE 104 mmol/L (98-107); CREATININE 0.85 mg/dL (0.55-1.02); POTASSIUM 3.5 mmol/L (3.5-5.1); SODIUM 141 mmol/L (136-145)
[2018-02-16 06:12] LABS: PHOSPHOROUS 2.9 mg/dL (2.5-4.9)
[2018-02-16 06:20] LABS: CHOLESTEROL 121 mg/dL (<200); FREE T4 1.53 ng/dl (0.76-1.46); HDL CHOLESTEROL 49 mg/dl (40-60); LDL CHOLESTEROL 42 mg/dL (9-159); TRIGLYCERIDES 150 mg/dl (<150); VLDL CHOLESTEROL 30 mg/dL (6-40)
[2018-02-16 07:49] LABS: VITAMIN D, 25-HYDROXY 21.6 ng/mL (30-100)
[2018-02-16 08:00] VITALS: BP 158/70
== END 2018-02-16 11:05 | disposition home or self-care (01) | DRG 310 ==
LOC: ED 01:39 → 5E 03:05 → EDHOLD 03:05 → 5E 03:15
PROVIDERS: Emergency Medicine; Internal Medicine Nephrology
DX: R00.2 Palpitations (principal); E66.01 Morbid (severe) obesity due to excess calories; I48.0 Paroxysmal atrial fibrillation; Z68.39 Body mass index [BMI] 39.0-39.9, adult; E03.9 Hypothyroidism, unspecified; E78.5 Hyperlipidemia, unspecified; I10 Essential (primary) hypertension; K57.30 Diverticulosis of large intestine without perforation or abscess without bleeding; M48.00 Spinal stenosis, site unspecified; Z96.653 Presence of artificial knee joint, bilateral; Z96.611 Presence of right artificial shoulder joint; M81.0 Age-related osteoporosis without current pathological fracture; D72.810 Lymphocytopenia; E87.6 Hypokalemia; R73.9 Hyperglycemia, unspecified; Z79.899 Other long term (current) drug therapy; Z88.0 Allergy status to penicillin; Z88.2 Allergy status to sulfonamides; Z88.8 Allergy status to other drugs, medicaments and biological substances; Z91.018 Allergy to other foods; Z85.3 Personal history of malignant neoplasm of breast; Z90.710 Acquired absence of both cervix and uterus; Z90.49 Acquired absence of other specified parts of digestive tract; Z82.49 Family history of ischemic heart disease and other diseases of the circulatory system; Z83.3 Family history of diabetes mellitus; Z83.6 Family history of other diseases of the respiratory system; Z85.828 Personal history of other malignant neoplasm of skin; Z92.3 Personal history of irradiation; Z79.01 Long term (current) use of anticoagulants

== ENCOUNTER 2018-05-10 09:09 | Inpatient (IN) | payer OTHER ==
[~2018-05-10] VITALS: Ht 165.1 cm; Wt 104.6 kg
--- NOTE | ~2018-05-10 | EKG ---
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
--- NOTE | ~2018-05-10 | EKG ---
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
[~2018-05-10 09:09] MED LIST changes: +FOSAMAX70 M1 PO; +LOSARTAN POTAS100 M1 PO
[2018-05-10 09:10] VITALS: BP 172/88
[2018-05-10 09:55] LABS: BASO % 0.7 % (0.0-1.0); EOS % 0.7 % (1.0-4.0); HEMATOCRIT 41.9 % (37.0-47.0); HEMOGLOBIN 13.4 g/dl (12.0-16.0); LYMPH # 0.7 10*3/uL (1.3-4.4); LYMPH % 12.5 % (27.0-41.0); MEAN CELL VOLUME 98.6 fl (81.0-99.0); MEAN CORPUSCULAR HGB 31.5 pg (27.0-31.0); MEAN PLATELET VOLUME 9.3 fl (9.6-12.3); MONO # 0.7 10*3/uL (0.1-1.0); MONO % 11.3 % (3.0-9.0); NEUT # 4.3 10*3/uL (2.3-7.9); NEUT % 74.5 % (47.0-73.0); PLATELET COUNT AUTOMATED 188 10*3/uL (130-400); RED BLOOD COUNT 4.25 10*6/uL (4.10-5.10); RED CELL DISTRI WIDTH 13.5 % (0-14.5); WHITE BLOOD COUNT 5.8 10*3/uL (4.8-10.8)
[2018-05-10 10:04] LABS: ACT PARTIAL THROMBO TIME 32.3 SECONDS (20.8-31.5); INTERNATIONAL NORM RATIO 1.3 (2.0-3.5)
[2018-05-10 10:15] LABS: ALBUMIN 3.5 gm/dl (3.1-4.5); ALKALINE PHOSPHATASE 83 U/L (45-117); BUN 22 mg/dl (7-24); CHLORIDE 101 mmol/L (98-107); CREATININE 1.07 mg/dL (0.55-1.02); LIPASE 237 U/L (73-393); POTASSIUM 3.4 mmol/L (3.5-5.1); SGOT/AST 13 IU/L (3-35); SGPT/ALT 14 U/L (12-78); SODIUM 139 mmol/L (136-145); TOTAL PROTEIN 6.8 gm/dL (6.4-8.2); TROPONIN I 0.022 ng/ml (<0.045)
[2018-05-10 11:02] VITALS: BP 168/80
[2018-05-10 11:11] VITALS: BP 120/74
[2018-05-10] MEDS ORDERED: APAP325 MG PO (11:39)
[2018-05-10] MEDS ORDERED: CALTRATE 600 P1 EACH PO (11:40)
[2018-05-10 12:12] LABS: BILIRUBIN NEGATIVE (NEGATIVE); BLOOD NEGATIVE (NEGATIVE); CLARITY SL CLOUDY (CLEAR); COLOR YELLOW (YELLOW); GLUCOSE NEGATIVE (NEGATIVE); KETONE NEGATIVE (NEGATIVE); LEUKO ESTERASE NEGATIVE (NEGATIVE); NITRITE NEGATIVE (NEGATIVE); SPECIFIC GRAVITY <= 1.005 (1.005-1.030); UROBILINOGEN 0.2 E.U./dl (0.2-1.0)
[2018-05-10 12:27] LABS: BACTERIA 3+
[2018-05-10 16:00] VITALS: BP 142/64
[2018-05-10 20:00] VITALS: BP 135/74
[2018-05-11] VITALS (13 sets, daily range): BP systolic 98–144; BP diastolic 44–96
[2018-05-11 06:27] LABS: HEMATOCRIT 40.3 % (37.0-47.0); HEMOGLOBIN 12.8 g/dl (12.0-16.0); MEAN CELL VOLUME 99.3 fl (81.0-99.0); MEAN CORPUSCULAR HGB 31.5 pg (27.0-31.0); MEAN CORPUSCULAR HGB CONC 31.8 g/dl (33.0-37.0); MEAN PLATELET VOLUME 9.9 fl (9.6-12.3); PLATELET COUNT AUTOMATED 181 10*3/uL (130-400); RED BLOOD COUNT 4.06 10*6/uL (4.10-5.10); RED CELL DISTRI WIDTH 13.5 % (0-14.5); WHITE BLOOD COUNT 6.9 10*3/uL (4.8-10.8)
[2018-05-11 06:35] LABS: BUN 22 mg/dl (7-24); CHLORIDE 102 mmol/L (98-107); CREATININE 0.99 mg/dL (0.55-1.02); POTASSIUM 3.7 mmol/L (3.5-5.1); SODIUM 142 mmol/L (136-145)
[2018-05-11 06:40] LABS: CHOLESTEROL 101 mg/dL (<200); FREE T4 1.29 ng/dl (0.76-1.46); HDL CHOLESTEROL 49 mg/dl (40-60); LDL CHOLESTEROL 32 mg/dL (9-159); TRIGLYCERIDES 98 mg/dl (<150); VLDL CHOLESTEROL 20 mg/dL (6-40)
[2018-05-11 06:46] LABS: THYROID STIM HORMONE (HS) 0.225 uIU/ml (0.358-4.75)
[2018-05-11 06:59] LABS: PLATELET SUFFICIENCY NORMAL (NORMAL); TOTAL CELLS COUNTED 100 #CELLS
[2018-05-12] VITALS: BP 99/68
[2018-05-12 12:00] VITALS: BP 121/72
[2018-05-12 16:00] VITALS: BP 140/88
[2018-05-12 20:00] VITALS: BP 125/55
[2018-05-13] VITALS: BP 136/64
[2018-05-13 08:00] VITALS: BP 106/58
[2018-05-13 10:25] VITALS: BP 106/48
[2018-05-13 12:00] VITALS: BP 100/60
[2018-05-13] MEDS ORDERED: METOPROLOL TART50 M1 PO (14:15)
[2018-05-16] MEDS ORDERED: PANTOPRAZOLE SO40 MG PO (17:55)
[2018-05-18] MEDS ORDERED: Synthroid,Levo88 MCG PO (08:31)
[2018-05-18] MEDS ORDERED: KLOR-CON M2020 ME1 PO (08:33)
[2018-05-18] MEDS ORDERED: VISTARIL25 MG PO (10:44)
[2018-06-22] MEDS ORDERED: MACROBID100 M1 PO ×2 (00:50→01:09)
== END 2018-05-13 16:03 | disposition home or self-care (01) | DRG 291 ==
LOC: ED 09:09 → 4E 10:47 → EDHOLD 10:47 → 4E 10:50
PROVIDERS: Emergency Medicine; Internal Medicine
DX: I13.0 Hypertensive heart and chronic kidney disease with heart failure and stage 1 through stage 4 chronic kidney disease, or unspecified chronic kidney disease (principal); I50.33 Acute on chronic diastolic (congestive) heart failure; N18.3 Chronic kidney disease, stage 3 (moderate); E87.6 Hypokalemia; R79.89 Other specified abnormal findings of blood chemistry; E78.5 Hyperlipidemia, unspecified; Z96.611 Presence of right artificial shoulder joint; E03.9 Hypothyroidism, unspecified; E66.01 Morbid (severe) obesity due to excess calories; I89.0 Lymphedema, not elsewhere classified; R00.0 Tachycardia, unspecified; I48.0 Paroxysmal atrial fibrillation; M81.0 Age-related osteoporosis without current pathological fracture; Z96.653 Presence of artificial knee joint, bilateral; Z90.710 Acquired absence of both cervix and uterus; Z85.3 Personal history of malignant neoplasm of breast; Z85.89 Personal history of malignant neoplasm of other organs and systems; Z92.21 Personal history of antineoplastic chemotherapy; Z92.3 Personal history of irradiation; Z90.49 Acquired absence of other specified parts of digestive tract; Z82.49 Family history of ischemic heart disease and other diseases of the circulatory system; Z83.6 Family history of other diseases of the respiratory system; Z88.1 Allergy status to other antibiotic agents; Z91.011 Allergy to milk products; Z88.0 Allergy status to penicillin; Z88.2 Allergy status to sulfonamides; Z88.8 Allergy status to other drugs, medicaments and biological substances; Z91.018 Allergy to other foods; Z79.899 Other long term (current) drug therapy; Z68.38 Body mass index [BMI] 38.0-38.9, adult

== ENCOUNTER 2018-06-01 04:06 | Inpatient (IN) | payer OTHER ==
[2018-06-01] VITALS (7 sets, daily range): BP systolic 100–171; BP diastolic 47–98
[~2018-06-01] VITALS: Ht 160 cm; Wt 104.0 kg
--- NOTE | ~2018-06-01 | CON ---
[place], [place] REPORT OF CONSULTATION NAME: JERED SHAW UNIT #: [id number] ROOM: 523 DOCTOR: VIRGIL WILLARD MD BIRTHDATE: [birth year] DOS: 06/01/2018 CARDIOLOGY CONSULTATION REASON FOR CONSULTATION: Chest discomfort. HISTORY OF PRESENT ILLNESS: The patient is an 82-year-old woman who has a chronic lymphedema. She was diagnosed as having atrial fibrillation in 02/2017. Echocardiograms in the past have shown significant atrial enlargement and normal left ventricular systolic function. She has been treated with rate control and rivaroxaban for stroke prophylaxis. The patient has had episodes of chest discomfort in the past. She does have occasional mild elevations in troponin. She does state that she had an abnormal stress test followed by catheterization in the distant past; however, she states that the catheterization was normal and that the stress test was a false positive. She has been managed empirically since then. Within the last month, she has had 3 hospitalizations. The first one was for an acute exacerbation of chronic diastolic congestive heart failure. The second one was probably occasioned by the fact that she was sent home without diuretics. She states that she was feeling reasonably well after the second discharge until early this morning. She awakened to go to the bathroom and felt a pressure sensation in her chest. It lasted for over an hour. She did have some dyspnea associated with this. She denied any other symptoms. She did note that she had more exertional dyspnea after that and that her chest discomfort got worse with exertion. She was transported to the Emergency Room for further assessment. In the Emergency Room, her electrocardiogram showed atrial fibrillation, but no acute changes. The ventricular response was controlled. Serial troponin levels have been measurable but not abnormally elevated. The highest troponin level was 0.021. PAST MEDICAL HISTORY: Includes: 1. Paroxysmal atrial fibrillation. 2. Lymphedema. 3. Hypothyroidism. 4. Hypertension. 5. Hyperlipidemia. 6. Insulin resistance. 7. History of breast cancer treated with radiation therapy. 8. History of basal cell cancer. 9. Remote history of gastrointestinal bleeding. 10. Morbid obesity. 11. Spinal stenosis. 12. Status post bilateral knee replacements. 13. History of right shoulder replacement. 14. History of cholecystectomy. MEDICATIONS: Prior to admission included cyanocobalamin 1000 mcg IM monthly, acetaminophen 650 mg q. 4 hours, alendronate 70 mg once a week, calcium carbonate b.i.d., hydroxyzine 25 mg at bedtime p.r.n. insomnia, levothyroxine [address] [place], [place] REPORT OF CONSULTATION NAME: JERED SHAW UNIT #: [id number] ROOM: 523 DOCTOR: VIRGIL WILLARD MD BIRTHDATE: [birth year] mcg daily, Lutein 6 mg daily, metoprolol tartrate 100 mg b.i.d., pantoprazole 40 mg daily, potassium 40 mEq b.i.d., rivaroxaban 20 mg daily, and simvastatin 10 mg at bedtime. ALLERGIES: She lists allergies to PENICILLIN, SULFA, CHOCOLATE, CORTISONE, DIPHENHYDRAMINE, METHOCARBAMOL and NEOMYCIN. FAMILY HISTORY: The patient states her father of a heart attack in his 80s, her mother in her 80s of COPD. REVIEW OF SYSTEMS: The patient denies diplopia, loss of vision. She denies focal weakness or history of stroke or TIA. She denies fevers, chills, sweats or recent weight change. She denies nausea or vomiting. She denies polydipsia, polyuria or heat or cold intolerance. She denies any skin rashes. She denies hemoptysis or hematemesis. She denies any recent change in bowel or bladder habits and denies blood in her stools or urine. She does have occasional palpitations. She has not had chest heaviness or pain in the past. She does have dyspnea with exertion. She does have chronic lymphedema. The remainder of the review of systems is negative except as noted above. SOCIAL HISTORY: The patient has never smoked, but she did live with smokers while growing up. She does not consume alcohol. PHYSICAL EXAMINATION: GENERAL: The patient is an overweight white female who is awake, alert and oriented. VITAL SIGNS: Pulse is 75 and regular, blood pressure is 102/61. She is afebrile. She weighs 99.1 kg and has a body mass index of 38.7. HEENT: Normocephalic and atraumatic. Extraocular muscles are intact. Sclerae are clear. Pupils equal, round and react to light. The oral mucosa is moist. Tongue is midline. NECK: Supple. She has mild jugular distention with hepatojugular reflux. Carotids are full. I heard no bruits. She had no neck or supraclavicular masses, no thyromegaly. LUNGS: Respirations are unlabored. Her chest is clear. She does have decreased breath sounds at the bases, but no wheezes or rales. She has no presacral edema or chest wall tenderness. HEART: Has irregularly irregular rhythm. She has no murmurs or gallops. PMI is not displaced. She has no precordial heave, lift or thrill. ABDOMEN: Obese, but otherwise benign, without mass, organomegaly or bruits. EXTREMITIES: Showed marked swelling with lymphedema. There is no pitting. LABORATORY DATA: I reviewed her electrocardiogram, which showed atrial fibrillation with a controlled ventricular response. No acute ST or T-wave changes are seen. IMPRESSION: 1. Chest discomfort. The patient did have a stress test a year ago that showed no significant ischemia, but she does have risk factors of glucose intolerance and hypertension and therefore her symptoms may be related to ischemia. [place], [place] REPORT OF CONSULTATION NAME: JERED SHAW UNIT #: [id number] ROOM: 523 DOCTOR: VIRGIL WILLARD MD BIRTHDATE: [birth year] 2. Permanent atrial fibrillation. 3. Chronic diastolic congestive heart failure with acute exacerbation. 4. Hypertension. 5. Type 2 diabetes or glucose intolerance. PLAN: We will continue the rivaroxaban for stroke prophylaxis. I note that she was not on a diuretic prior to this admission or at the present time. She does show mild fluid overload, so I will be starting that. Her metoprolol was withheld since admission and I will be resuming that. I think that for the time being, I would place her on topical nitrates and if her symptoms improve switch her to isosorbide mononitrate daily in the next 24-48 hours. Depending on how she responds to medications, we can consider repeating her stress test early next week. However, if she does respond well to medications, we may just continue her management empirically, especially given her age and comorbidities. I thank the hospitalist physicians for asking our advice regarding her care. VIRGIL WILLARD MD CM:CONSTR:REPORT OF CONSULTATION 1626 06/01/18 1746 interface
--- NOTE | ~2018-06-01 | EKG ---
[place], [place] ELECTROCARDIOGRAM REPORT NAME: JERED SHAW UNIT #: [id number] ROOM: 523 DOCTOR: EPIPHANY DRAFT REPORT BIRTHDATE: [birth year] [facility] Test Date: 2018-06-01 Test Time: 04:13:15 Pat Name: JERED SHAW Department: Room: 523 Gender: F Instructor Kindergarten: Lizzie Sood : 1935 Requested By: EVA MUHAMMAD Order Number: [id number] Reading MD: Tomas Amaya MD Measurements Intervals [place] Rate: 87 P: [place]: QRS: 63 QRSD: 94 T: 7 QT: 351 QTc: 423 Interpretive Statements Atrial fibrillation Ventricular premature complex Abnormal R-wave progression, late transition Borderline T abnormalities, inferior leads Compared to ECG 05/16/2018 14:47:30 Ventricular premature complex(es) now present T-wave abnormality still present Electronically Signed On 06-01-2018 8:45:44 PDT by Tomas Amaya MD CM:EKGRPT:ELECTROCARDIOGRAM REPORT [id number] 0845 EVA MUHAMMAD MD EPIPHANY DRAFT REPORT EVA MUHAMMAD MD
--- NOTE | ~2018-06-01 | EKG ---
[place], [place] ELECTROCARDIOGRAM REPORT NAME: JERDE SHAW UNIT #: [id number] ROOM: 523 DOCTOR: EPIPHANY DRAFT REPORT BIRTHDATE: [birth year] [facility] Test Date: 2018-06-01 Test Time: 10:33:51 Pat Name: JERED SHAW Department: Room: 523 Gender: F Floors Buffer: Ninfa Avery : 1935 Requested By: EVA MUHAMMAD Order Number: [id number] Reading MD: Tomas Amaya MD Measurements Intervals [place] Rate: 94 P: [place]: QRS: -45 QRSD: 92 T: -39 QT: 354 QTc: 443 Interpretive Statements Atrial fibrillation LAD, consider left anterior fascicular block Abnormal R-wave progression, late transition Borderline T abnormalities, diffuse leads Compared to ECG 05/16/2018 14:47:30 T-wave abnormality still present Electronically Signed On 06-01-2018 8:48:56 PDT by Tomas Amaya MD CM:EKGRPT:ELECTROCARDIOGRAM REPORT [id number] 0848 EVA MUHAMMAD MD EPIPHANY DRAFT REPORT EVA MUHAMMAD MD
--- NOTE | ~2018-06-01 | EKG ---
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
[~2018-06-01 04:06] MED LIST changes: +APAP325 MG PO; +CALTRATE 600 P1 EACH PO; +KLOR-CON M2020 ME1 PO; +METOPROLOL TART50 M1 PO; +Synthroid,Levo88 MCG PO; +VISTARIL25 MG PO
[2018-06-01 04:26] LABS: BASO # 0.1 10*3/uL (0.0-0.1); BASO % 0.8 % (0.0-1.0); EOS # 0.1 10*3/uL (0.0-0.4); EOS % 1.4 % (1.0-4.0); HEMATOCRIT 46.3 % (37.0-47.0); LYMPH # 1.6 10*3/uL (1.3-4.4); MEAN CELL VOLUME 96.1 fl (81.0-99.0); MEAN CORPUSCULAR HGB 31.1 pg (27.0-31.0); MEAN CORPUSCULAR HGB CONC 32.4 g/dl (33.0-37.0); MEAN PLATELET VOLUME 9.6 fl (9.6-12.3); MONO # 1.2 10*3/uL (0.1-1.0); MONO % 17.8 % (3.0-9.0); NEUT # 3.6 10*3/uL (2.3-7.9); NEUT % 54.8 % (47.0-73.0); PLATELET COUNT AUTOMATED 201 10*3/uL (130-400); RED BLOOD COUNT 4.82 10*6/uL (4.10-5.10); RED CELL DISTRI WIDTH 13.9 % (0-14.5); WHITE BLOOD COUNT 6.5 10*3/uL (4.8-10.8)
[2018-06-01 04:36] LABS: ACT PARTIAL THROMBO TIME 33.3 SECONDS (20.8-31.5); INTERNATIONAL NORM RATIO 1.3 (2.0-3.5)
[2018-06-01 04:45] LABS: ALBUMIN 3.7 gm/dl (3.1-4.5); CREATININE 1.27 mg/dL (0.55-1.02); POTASSIUM 3.5 mmol/L (3.5-5.1); TOTAL PROTEIN 7.5 gm/dL (6.4-8.2)
[2018-06-01 04:46] LABS: TROPONIN I 0.019 ng/ml (<0.045)
[2018-06-01 07:44] LABS: PHOSPHOROUS 3.6 mg/dL (2.5-4.9)
[2018-06-01 07:49] LABS: THYROID STIM HORMONE (HS) 1.48 uIU/ml (0.358-4.75)
[2018-06-02] VITALS: BP 116/78
[2018-06-02 06:21] LABS: BASO % 0.4 % (0.0-1.0); EOS # 0.1 10*3/uL (0.0-0.4); EOS % 1.3 % (1.0-4.0); HEMATOCRIT 43.4 % (37.0-47.0); LYMPH # 2.2 10*3/uL (1.3-4.4); LYMPH % 27.8 % (27.0-41.0); MEAN CELL VOLUME 97.3 fl (81.0-99.0); MEAN CORPUSCULAR HGB 31.4 pg (27.0-31.0); MEAN CORPUSCULAR HGB CONC 32.3 g/dl (33.0-37.0); MEAN PLATELET VOLUME 10.1 fl (9.6-12.3); MONO # 1.4 10*3/uL (0.1-1.0); MONO % 18.1 % (3.0-9.0); NEUT # 4.1 10*3/uL (2.3-7.9); PLATELET COUNT AUTOMATED 168 10*3/uL (130-400); RED BLOOD COUNT 4.46 10*6/uL (4.10-5.10); RED CELL DISTRI WIDTH 14.1 % (0-14.5); WHITE BLOOD COUNT 7.9 10*3/uL (4.8-10.8)
[2018-06-02 07:21] LABS: CREATININE 1.11 mg/dL (0.55-1.02); POTASSIUM 4.3 mmol/L (3.5-5.1)
[2018-06-02 07:25] LABS: FREE T4 1.09 ng/dl (0.76-1.46)
[2018-06-02 08:00] VITALS: BP 118/68
[2018-06-02 12:00] VITALS: BP 112/47
[2018-06-02 16:00] VITALS: BP 115/57
[2018-06-02 20:00] VITALS: BP 124/67
[2018-06-03] VITALS: BP 115/53
[2018-06-03 06:40] LABS: BASO # 0.1 10*3/uL (0.0-0.1); BASO % 0.8 % (0.0-1.0); EOS # 0.1 10*3/uL (0.0-0.4); EOS % 1.4 % (1.0-4.0); HEMATOCRIT 41.9 % (37.0-47.0); HEMOGLOBIN 13.5 g/dl (12.0-16.0); LYMPH # 1.4 10*3/uL (1.3-4.4); LYMPH % 22.1 % (27.0-41.0); MEAN CELL VOLUME 97.2 fl (81.0-99.0); MEAN CORPUSCULAR HGB 31.3 pg (27.0-31.0); MEAN CORPUSCULAR HGB CONC 32.2 g/dl (33.0-37.0); MONO # 1.1 10*3/uL (0.1-1.0); MONO % 17.9 % (3.0-9.0); NEUT # 3.6 10*3/uL (2.3-7.9); NEUT % 57.6 % (47.0-73.0); PLATELET COUNT AUTOMATED 177 10*3/uL (130-400); RED BLOOD COUNT 4.31 10*6/uL (4.10-5.10); RED CELL DISTRI WIDTH 13.9 % (0-14.5); WHITE BLOOD COUNT 6.3 10*3/uL (4.8-10.8)
[2018-06-03 06:51] LABS: ALBUMIN 3.5 gm/dl (3.1-4.5); CREATININE 1.07 mg/dL (0.55-1.02); POTASSIUM 3.9 mmol/L (3.5-5.1); TOTAL PROTEIN 6.6 gm/dL (6.4-8.2)
[2018-06-03 08:00] VITALS: BP 126/72
[2018-06-03 12:00] VITALS: BP 112/41
[2018-06-03] MEDS ORDERED: FUROSEMIDE40 MG PO (15:05)
[2018-06-03] MEDS ORDERED: IMDUR SA30 MG PO (15:05)
[2018-06-22] MEDS ORDERED: MACROBID100 M1 PO ×2 (00:50→01:09)
== END 2018-06-03 16:50 | disposition home or self-care (01) | DRG 682 ==
LOC: ED 04:06 → 5E 05:28
PROVIDERS: Emergency Medicine Emergency Medical Services; Family Medicine; Student in an Organized Health Care Education/Training Program
DX: N17.0 Acute kidney failure with tubular necrosis (principal); I50.33 Acute on chronic diastolic (congestive) heart failure; I13.0 Hypertensive heart and chronic kidney disease with heart failure and stage 1 through stage 4 chronic kidney disease, or unspecified chronic kidney disease; N18.3 Chronic kidney disease, stage 3 (moderate); I48.0 Paroxysmal atrial fibrillation; E78.5 Hyperlipidemia, unspecified; Z96.653 Presence of artificial knee joint, bilateral; I48.2 Chronic atrial fibrillation; E11.22 Type 2 diabetes mellitus with diabetic chronic kidney disease; Z96.619 Presence of unspecified artificial shoulder joint; E03.9 Hypothyroidism, unspecified; E53.8 Deficiency of other specified B group vitamins; F41.9 Anxiety disorder, unspecified; M81.0 Age-related osteoporosis without current pathological fracture; K21.9 Gastro-esophageal reflux disease without esophagitis; E66.01 Morbid (severe) obesity due to excess calories; Z88.0 Allergy status to penicillin; Z88.2 Allergy status to sulfonamides; Z88.8 Allergy status to other drugs, medicaments and biological substances; Z88.1 Allergy status to other antibiotic agents; Z91.011 Allergy to milk products; Z90.49 Acquired absence of other specified parts of digestive tract; Z82.5 Family history of asthma and other chronic lower respiratory diseases; Z82.49 Family history of ischemic heart disease and other diseases of the circulatory system; Z85.3 Personal history of malignant neoplasm of breast; Z79.1 Long term (current) use of non-steroidal anti-inflammatories (NSAID); Z79.899 Other long term (current) drug therapy; Z68.38 Body mass index [BMI] 38.0-38.9, adult

== ENCOUNTER → 2018-06-27 | Outpatient (CLI) | payer OTHER ==
[~2018-06-27] MED LIST changes: +FUROSEMIDE40 MG PO; +IMDUR SA30 MG PO; +MACROBID100 M1 PO
[2018-06-27 12:04] LABS: BASO # 0.1 10*3/uL (0.0-0.1); BASO % 0.9 % (0.0-1.0); EOS # 0.1 10*3/uL (0.0-0.4); EOS % 0.8 % (1.0-4.0); HEMATOCRIT 46.3 % (37.0-47.0); HEMOGLOBIN 14.6 g/dl (12.0-16.0); LYMPH # 0.9 10*3/uL (1.3-4.4); LYMPH % 14.3 % (27.0-41.0); MEAN CELL VOLUME 99.4 fl (81.0-99.0); MEAN CORPUSCULAR HGB 31.3 pg (27.0-31.0); MEAN CORPUSCULAR HGB CONC 31.5 g/dl (33.0-37.0); MEAN PLATELET VOLUME 10.4 fl (9.6-12.3); MONO # 0.8 10*3/uL (0.1-1.0); MONO % 11.6 % (3.0-9.0); NEUT # 4.7 10*3/uL (2.3-7.9); NEUT % 71.9 % (47.0-73.0); PLATELET COUNT AUTOMATED 173 10*3/uL (130-400); RED BLOOD COUNT 4.66 10*6/uL (4.10-5.10); RED CELL DISTRI WIDTH 14.6 % (0-14.5); WHITE BLOOD COUNT 6.6 10*3/uL (4.8-10.8)
[2018-06-27 12:52] LABS: CREATININE 1.07 mg/dL (0.55-1.02); POTASSIUM 3.9 mmol/L (3.5-5.1)
== END | disposition home or self-care (01) ==
LOC: LAB 03:52
PROVIDERS: Internal Medicine
DX: I10 Essential (primary) hypertension (principal); E78.2 Mixed hyperlipidemia; E03.9 Hypothyroidism, unspecified; R73.02 Impaired glucose tolerance (oral); R06.02 Shortness of breath

== ENCOUNTER → 2018-07-05 | Outpatient (CLI) | payer OTHER | END | disposition home or self-care (01) | LOC: RESCLI 08:25 | DX: E03.9 Hypothyroidism, unspecified (principal); I48.0 Paroxysmal atrial fibrillation; N17.0 Acute kidney failure with tubular necrosis; E78.1 Pure hyperglyceridemia; I27.21 Secondary pulmonary arterial hypertension; F41.9 Anxiety disorder, unspecified; K21.9 Gastro-esophageal reflux disease without esophagitis; I12.9 Hypertensive chronic kidney disease with stage 1 through stage 4 chronic kidney disease, or unspecified chronic kidney disease; N18.3 Chronic kidney disease, stage 3 (moderate); M48.00 Spinal stenosis, site unspecified; I89.0 Lymphedema, not elsewhere classified; E53.8 Deficiency of other specified B group vitamins; M81.0 Age-related osteoporosis without current pathological fracture; Z79.899 Other long term (current) drug therapy; Z88.8 Allergy status to other drugs, medicaments and biological substances ==

== ENCOUNTER 2018-09-24 10:00 | Inpatient (IN) | payer OTHER ==
[2018-09-24] VITALS (8 sets, daily range): BP systolic 112–164; BP diastolic 64–98
--- NOTE | ~2018-09-24 | PR ---
[place], [place] PROGRESS NOTE NAME: JERED SHAW [facility] #: [id number] UNIT #: [id number] ROOM: 407 DOCTOR: VIRGIL WILLARD MD BIRTHDATE: [birth year] DOS: 09/25/2018 CARDIOLOGY PROGRESS NOTE SUBJECTIVE: The patient was seen at her bedside today, 09/25/2018, for followup of her dyspnea. She is an 82-year-old woman who does have permanent atrial fibrillation with chronic diastolic congestive heart failure. She has been hospitalized several times in the last 6 months, but was doing well since her last hospitalization until a few days ago. She states that her breathing got worse and she had much more dyspnea on exertion. Since May 2018, she appears to have gained 10 pounds, and her exam does show jugular venous distention consistent with fluid overload. BNP was elevated. Accordingly, we did diurese the patient overnight. This morning, she states she feels better, but has not yet been out of bed. PHYSICAL EXAMINATION: VITAL SIGNS: Her pulse is 88 and irregularly irregular. Blood pressure is 128/78. She is afebrile. Weight is 103.6 kilograms. HEENT: Normocephalic, atraumatic. Extraocular muscles are intact. NECK: Supple. She has minimal jugular distention when sitting in a 45 degree angle. She still does have hepatojugular reflux. Carotids are full without bruits. LUNGS: Respirations are unlabored. Her chest has decreased breath sounds at the bases, but no wheezes or rales. HEART: Has an irregularly irregular rhythm without any gallops. ABDOMEN: Obese, but otherwise benign, without masses, organomegaly or bruits. EXTREMITIES: Showed lymphedema. LABORATORY DATA: Electrolytes today, sodium is 143, potassium 3.2, chloride 104, CO2 of 29, BUN 21, creatinine 0.93. Estimated GFR is 58. Total cholesterol is 113 with triglycerides of 105, LDL is 43, HDL is 49. IMPRESSIONS: 1. Acute exacerbation of chronic diastolic heart failure. 2. Permanent atrial fibrillation. 3. Abnormal chest x-ray and CT scan indicating atelectasis and bronchiectasis of the lingula. PLAN: For today, we will continue IV diuresis. Potassium will be replaced. We will continue to follow her renal functions carefully. It may be that she will require a larger dose of loop diuretic upon discharge. We also did speak again about compliance with dietary restrictions on sodium. I thank the hospitalist physicians for asking our advice regarding her care. [place], [place] PROGRESS NOTE NAME: JERED SHAW UNIT #: [id number] ROOM: 407 DOCTOR: VIRGIL WILLARD MD BIRTHDATE: [birth year] VIRGIL WILLARD MD CM:PNTRANS [id number] VIRGIL WILLARD MD 09/26/18 0057 interface
--- NOTE | ~2018-09-24 | PR ---
[place], [place] PROGRESS NOTE NAME: JERED SHAW UNIT #: [id number] ROOM: 407 DOCTOR: VIRGIL WILLARD MD BIRTHDATE: [birth year] DOS: 09/26/2018 SUBJECTIVE: The patient was seen at her bedside today, 09/26/2018, for followup of her acute on chronic diastolic heart failure. She was hospitalized several times in the last 6 months, but was doing well until a few days ago when she began having increased dyspnea on exertion. Since she was seen in May 2018, she had gained 10 pounds and her exam did show jugular venous distension consistent with fluid overload along with an elevated BNP. We have switched her to IV diuretics at a larger dose and she does feel better. She denies any significant dyspnea at this time. PHYSICAL EXAMINATION: VITAL SIGNS: Today, her pulse is 84 and irregularly irregular, blood pressure is 150/77. She is afebrile. NECK: Supple. She has no jugular distention. Carotids are full. LUNGS: Respirations are unlabored. Chest is clear to auscultation and percussion. HEART: Has an irregularly irregular rhythm without murmurs or gallops. ABDOMEN: Obese, otherwise benign. EXTREMITIES: She does have significant lymphedema of her legs. LABORATORY DATA: Hemoglobin today is 12.9, white count 6200, platelet count 153,000. Sodium 144, potassium 3.6, BUN 23, creatinine 0.29. IMPRESSION: 1. Acute exacerbation of chronic diastolic heart failure. The patient does appear to be better compensated today. 2. Permanent atrial fibrillation. 3. Abnormal chest x-ray and CT scan of the chest indicating atelectasis and bronchiectasis of the lingula. PLAN: We will switch her over to oral diuretics and continue to follow her renal functions. She was on furosemide 20 mg a day prior to admission and I am increasing her to 40 mg per day. If she looks reasonable in the morning, she probably could be discharged within the next 24 hours. I thank the hospitalist physicians for asking our advice regarding her care. [place], [place] PROGRESS NOTE NAME: JERED SHAW UNIT #: [id number] ROOM: 407 DOCTOR: VIRGIL WILLARD MD BIRTHDATE: [birth year] VIRGIL WILLARD MD CM:PNTRANS [id number] VIRGIL WILLARD MD 09/27/18 0231 interface
--- NOTE | ~2018-09-24 | EKG ---
[place], [place] ELECTROCARDIOGRAM REPORT NAME: JERED SHAW UNIT #: [id number] ROOM: 407 DOCTOR: BRIGIDA DRAFT REPORT BIRTHDATE: [birth year] [facility] Test Date: 2018-09-24 Test Time: 10:27:23 Pat Name: JERED SHAW Department: Room: 407 Gender: F Hvac Residential Service Technician: Ema Umanzor : 1935 Requested By: JOSE CORREA Order Number: [id number] Reading MD: Tomas Amaya MD Measurements Intervals [place] Rate: 85 P: VT: QRS: 89 QRSD: 103 T: 248 QT: 384 QTc: 457 Interpretive Statements Atrial fibrillation Borderline right axis deviation Abnormal R-wave progression, late transition Nonspecific T abnormalities, diffuse leads Compared to ECG 06/21/2018 22:13:22 T-wave abnormality now present Electronically Signed On 09-24-2018 21:36:23 PST by Tomas Amaya MD CM:EKGRPT:ELECTROCARDIOGRAM REPORT 1027 JOSE ALLRED DRAFT REPORT JOSE CORREA MD
[2018-09-24 10:56] LABS: BASO # 0.1 10*3/uL (0.0-0.1); BASO % 0.8 % (0.0-1.0); EOS # 0.1 10*3/uL (0.0-0.4); EOS % 0.9 % (1.0-4.0); HEMATOCRIT 43.1 % (37.0-47.0); HEMOGLOBIN 13.3 g/dl (12.0-16.0); LYMPH # 0.7 10*3/uL (1.3-4.4); LYMPH % 11.1 % (27.0-41.0); MEAN CELL VOLUME 101.4 fl (81.0-99.0); MEAN CORPUSCULAR HGB 31.3 pg (27.0-31.0); MEAN CORPUSCULAR HGB CONC 30.9 g/dl (33.0-37.0); MEAN PLATELET VOLUME 9.5 fl (9.6-12.3); MONO # 0.8 10*3/uL (0.1-1.0); MONO % 12.4 % (3.0-9.0); NEUT # 4.8 10*3/uL (2.3-7.9); NEUT % 74.2 % (47.0-73.0); PLATELET COUNT AUTOMATED 172 10*3/uL (130-400); RED BLOOD COUNT 4.25 10*6/uL (4.10-5.10); RED CELL DISTRI WIDTH 14.6 % (0-14.5); WHITE BLOOD COUNT 6.5 10*3/uL (4.8-10.8)
[2018-09-24 10:57] LABS: ALBUMIN 3.3 gm/dl (3.1-4.5); ALKALINE PHOSPHATASE 77 U/L (45-117); BUN 22 mg/dl (7-24); CHLORIDE 101 mmol/L (98-107); CREATININE 1.02 mg/dL (0.55-1.02); POTASSIUM 2.9 mmol/L (3.5-5.1); SGOT/AST 15 IU/L (3-35); SGPT/ALT 14 U/L (12-78); SODIUM 141 mmol/L (136-145); TOTAL PROTEIN 6.6 gm/dL (6.4-8.2)
--- NOTE | 2018-09-24 10:59 | NUR ---
DR. CORREA AWARE OF CRITICAL LA 2.6
[2018-09-24 11:01] LABS: ACT PARTIAL THROMBO TIME 33.6 SECONDS (20.8-31.5); INTERNATIONAL NORM RATIO 1.3 (2.0-3.5)
[2018-09-24 11:05] LABS: TROPONIN I 0.027 ng/ml (<0.045)
--- NOTE | 2018-09-24 11:51 | NUR ---
PT RESTING COMFORTABLY IN BED. NO DISTRESS NOTED. CALL RADER WITHIN REACH. AWAITING RESULTS.
--- NOTE | 2018-09-24 12:49 | NUR ---
PT STABLE AND READY FOR TRANSPORT TO INPATIENT ROOM.
--- NOTE | 2018-09-24 13:15 | NUR ---
A 82, admitted to , under the services of MANUEL Santo DO with a diagnosis of DYSPNEA ON EXERTION. Chief complaint is SHORTNESS OF BREATH. Patient arrived via bed from ER. Monitor applied. Initial assessment completed. Vital signs taken and recorded. MANUEL SANTO DO notified of admission to the unit. Orders received. See assessment for past medical history, medications and allergies. Patient and/or family oriented to unit. [facility] visitation policy reviewed. Clothing/patient valuable form completed. HARMONY MEDRANO
--- NOTE | 2018-09-24 14:10 | NUR ---
DR. LÓPEZ ANSWERING SERVICE CALLED AT THIS TIME AND MADE AWARE OF NEW CONSULT.
[2018-09-24] MEDS ORDERED: LASIX20 MG PO (15:14)
[2018-09-24] MEDS ORDERED: POTASSIUM CHLO10 ME4 PO (15:16)
[2018-09-24] MEDS ORDERED: VISTARIL50 MG PO (15:17)
[2018-09-24] MEDS ORDERED: IMDUR SA30 MG PO (15:18)
--- NOTE | 2018-09-24 15:20 | NUR ---
MED REC UP TO DATE WITH PHARMACY AT THIS TIME. DR. FARTUN CORDOVA.
--- NOTE | 2018-09-24 15:24 | NUR ---
Patient not available for Occupational Therapy as she is out of her room for a CT to abdomen. OTR will recheck at a later date. Taylor Pacheco OTR/L
--- NOTE | 2018-09-24 15:32 | NUR ---
PHYSICAL THERAPY Patient at testing. Thank you for this referral. Alisia Tamayo,PT
--- NOTE | 2018-09-24 19:00 | NUR ---
PT AWAKE IN BED DURING BEDSIDE SHIFT REPORT. NO C/O VOICED AT PRESENT TIME. CALL LIGHT IN REACH.
--- NOTE | 2018-09-24 21:26 | NUR ---
PATIENT INSTRUCTED ON IS USE. 500-1000CC X 10 ACHIEVED. GOOD PATIENT EFFORT. LEF AT BEDSIDE, ENCOURAGED PATIENT TO USE ON HER OWN.
--- NOTE | 2018-09-24 22:04 | NUR ---
PT C/O LINDO WHEN TRANSFERRING SELF TO BSC FROM BED. GAVE PT O2 NC AT 2LPM TO USE PRN. SAT 96% ON RA AT PRESENT TIME. CALL LIGHT IN REACH. WILL CONTINUE TO MONIOR.
--- NOTE | 2018-09-24 23:52 | NUR ---
PT MEDICATED W/VISTARIL PER PT REQUEST TO HELP PROMOTE SLEEP D/T ANXIETY. LIGHTS/TV TURNED OFF. CALL LIGHT IN REACH.
[2018-09-25] VITALS: BP 120/61
[2018-09-25 06:13] LABS: BUN 21 mg/dl (7-24); CHLORIDE 104 mmol/L (98-107); CHOLESTEROL 113 mg/dL (<200); CREATININE 0.93 mg/dL (0.55-1.02); PHOSPHOROUS 3.2 mg/dL (2.5-4.9); POTASSIUM 3.2 mmol/L (3.5-5.1); SODIUM 143 mmol/L (136-145); TRIGLYCERIDES 105 mg/dl (<150); VLDL CHOLESTEROL 21 mg/dL (6-40)
[2018-09-25 06:14] LABS: BASO # 0.1 10*3/uL (0.0-0.1); EOS # 0.1 10*3/uL (0.0-0.4); EOS % 1.5 % (1.0-4.0); HEMATOCRIT 41.3 % (37.0-47.0); HEMOGLOBIN 13.4 g/dl (12.0-16.0); LYMPH # 1.2 10*3/uL (1.3-4.4); LYMPH % 19.1 % (27.0-41.0); MEAN CELL VOLUME 100.2 fl (81.0-99.0); MEAN CORPUSCULAR HGB 32.5 pg (27.0-31.0); MEAN CORPUSCULAR HGB CONC 32.4 g/dl (33.0-37.0); MEAN PLATELET VOLUME 9.9 fl (9.6-12.3); MONO % 16.8 % (3.0-9.0); NEUT # 3.7 10*3/uL (2.3-7.9); NEUT % 61.3 % (47.0-73.0); PLATELET COUNT AUTOMATED 170 10*3/uL (130-400); RED BLOOD COUNT 4.12 10*6/uL (4.10-5.10); RED CELL DISTRI WIDTH 14.7 % (0-14.5); WHITE BLOOD COUNT 6.1 10*3/uL (4.8-10.8)
[2018-09-25 06:19] LABS: FREE T4 1.31 ng/dl (0.76-1.46); HDL CHOLESTEROL 49 mg/dl (40-60); LDL CHOLESTEROL 43 mg/dL (9-159)
[2018-09-25 06:55] LABS: VITAMIN D, 25-HYDROXY 22.4 ng/mL (30-100)
[2018-09-25 08:00] VITALS: BP 128/78; BP 136/84
--- NOTE | 2018-09-25 08:10 | NUR ---
TYLENOL GIVEN AT THIS TIME FOR COMPLAINTS OF ARTHRITIS PAIN. WILL MONITOR FOR EFFECTIVENESS.
--- NOTE | 2018-09-25 09:00 | NUR ---
Crotch Breaker in to talk to patient. Patient states lives at home with alone. There are none steps in the home. Physician: resident clinic Pharmacy: [facility] services: none Patient's level of ADLs: INDEPENDENT Patient has working utilities: all working DME: none Follow-up physician's appointment after d/c: will be made by hospitalist nurse director upon discharge Does patient want to access PORTAL?: no Discharge plan discussed with patient, patient lives in a one floor home alone, she states she is independent in adls and ambulation, patient states she occasionally drives, but has family that usually takes her to appointments and to get groceries, patient states she will be going home when able, discussed with her VNA and she declined any services, case management will follow for any needs. NENA SAMAYOA
--- NOTE | 2018-09-25 10:45 | NUR ---
PHYSICAL THERAPY PAtient evaluated on 4, full evalaution to follow. Continue with PT as per plan of care with fall and balance dysfunction precautions. Insist on d/c to home, highly recommend home health RN, PT and aides. PAtient is high complexity via chart review, tests and evaluation: 27100. Thank you for this referral. Alisia Tamayo,PT
[2018-09-25 12:00] VITALS: BP 116/68
[2018-09-25 16:00] VITALS: BP 119/62
[2018-09-25 20:00] VITALS: BP 124/66
[2018-09-26] VITALS: BP 141/81
--- NOTE | 2018-09-26 | NUR ---
24 HR chart check completed.
--- NOTE | 2018-09-26 00:21 | NUR ---
TYLENOL GIVEN PER ORDER FOR PAIN IN SHOULDER RATED "5-6" ALSO VISTARIL GIVEN PER ORDER FOR ANXIETY AND TO HELP HER SLEEP PER PT. REQUEST. SEE MAR.
--- NOTE | 2018-09-26 01:20 | NUR ---
TYLENOL EFFECTIVE FOR SHOULDER PAIN PER PT.
[2018-09-26 05:58] LABS: BASO # 0.1 10*3/uL (0.0-0.1); BASO % 0.8 % (0.0-1.0); EOS # 0.2 10*3/uL (0.0-0.4); EOS % 2.4 % (1.0-4.0); HEMATOCRIT 40.1 % (37.0-47.0); HEMOGLOBIN 12.9 g/dl (12.0-16.0); LYMPH # 1.4 10*3/uL (1.3-4.4); LYMPH % 21.8 % (27.0-41.0); MEAN CELL VOLUME 101.5 fl (81.0-99.0); MEAN CORPUSCULAR HGB 32.7 pg (27.0-31.0); MEAN CORPUSCULAR HGB CONC 32.2 g/dl (33.0-37.0); MONO # 1.2 10*3/uL (0.1-1.0); MONO % 18.4 % (3.0-9.0); NEUT # 3.5 10*3/uL (2.3-7.9); NEUT % 56.3 % (47.0-73.0); PLATELET COUNT AUTOMATED 153 10*3/uL (130-400); RED BLOOD COUNT 3.95 10*6/uL (4.10-5.10); RED CELL DISTRI WIDTH 14.6 % (0-14.5); WHITE BLOOD COUNT 6.2 10*3/uL (4.8-10.8)
[2018-09-26 06:12] LABS: BUN 23 mg/dl (7-24); CHLORIDE 105 mmol/L (98-107); CREATININE 0.92 mg/dL (0.55-1.02); POTASSIUM 3.6 mmol/L (3.5-5.1); SODIUM 144 mmol/L (136-145)
--- NOTE | 2018-09-26 07:36 | NUR ---
TYLENOL GIVEN FOR RIGHT SHOULDER PAIN RATED "5-6" SEE MAR
[2018-09-26 08:00] VITALS: BP 134/72
--- NOTE | 2018-09-26 08:40 | NUR ---
Medication effective per pt. Patient resting. Respirations easy and regular. Vital signs stable. No overt distress. WEN MUNIZ R
--- NOTE | 2018-09-26 09:00 | NUR ---
case management visits with patient, again discussed with her VNA, explained their services to patient. patient stated that she did not want any services at this time, case management will follow
--- NOTE | 2018-09-26 09:19 | NUR ---
PHYSICAL THERAPY Patient presented to therapy in supine with head of bed elevated and spO2 NOT presently being used by patient. Patient has no complaints. Patient agrees ot therapy session. Patient was identified by name and . Patient performed supine to sitting at EOB with SBA. Patient performed STS transfer from EOB with SBA. Patient ambulated with W/W and no spO2 with Close Supervision for 92' x 1 with no LOB, SOB, and no standing rest breaks. Patient sat on EOB and performed bilateral LE ther ex in all planes of movement 2 x 10 reps each for strengthening the LEs in order to improve patient's functional mobility. Patient transferred back to supine in bed with MIN A X 1 for moving her LEs up in bed. Patient was left in supine position with head of bed elevated, call light within reach, and bed alarm activated. Patient O2 SAT post ambulating was 95% with no spO2. Patient was 1:1 with this HANDLE BENDER for 20 minutes total. JOHANNA HANSEN HANDLE BENDER
--- NOTE | 2018-09-26 09:44 | NUR ---
Pt was identified by name & birthdate. Pt was seen for 30 minutes in OT beginning with education/demonstration of breathing techniques to enhance ADL tasks. After demonstration, patient participated in chest expansion exercises with occasional cues for correct procedures. Patient also required occasional rest periods during session. Continue with POC. Carolyne TADEO
--- NOTE | 2018-09-26 11:50 | NUR ---
HOME O2 ASSESSMENT: PRE BP: 134/55, HR 85, RR 18, PULSE OX 94% ON ROOM AIR AT REST. AMBULATED PATIENT APPROX. 20 FEET, PULSE OX DECREASED TO 85% ON ROOM AIR WHILE AMBULATING. PLACED 3 L/M ON PATIENT, SAT >94% WHILE AMBULATING. POST BP: 151/77, HR 84, RR 20, PULSE OX 97% ON 2 L/M AT REST. DR. WILLOUGHBY NOTIFIED. LEFT MESSAGE WITH HOSPITALIST NURSE ANISH.
[2018-09-26 12:00] VITALS: BP 150/77
--- NOTE | 2018-09-26 13:28 | NUR ---
Pt not seen for OT this pm due to SOB and patient reporting "I can't catch my breath". Alerted nursing staff & will attempt to see pt another time/date. Continue with POC. Carolyne NEGRO/Chelsy
--- NOTE | 2018-09-26 14:10 | NUR ---
Pt was identified by name & birthdate. Pt was treated x 15 mins in OT beginning with MARKY demonstrating "towel exercises" for pt to enhance energy for ADL tasks. After demonstration, pt performed well with exercises with 2 cues for correct procedures. Continue with POC. Carolyne NEGRO/Chelsy
[2018-09-26 16:00] VITALS: BP 136/68
[2018-09-26 20:00] VITALS: BP 128/68
[2018-09-27] VITALS: BP 135/43
[2018-09-27 07:54] LABS: BUN 24 mg/dl (7-24); CHLORIDE 106 mmol/L (98-107); CREATININE 0.91 mg/dL (0.55-1.02); POTASSIUM 3.7 mmol/L (3.5-5.1); SODIUM 144 mmol/L (136-145)
--- NOTE | 2018-09-27 07:54 | NUR ---
PT TREATMENT NOTE PATIENT DECLINING PARTICIPATION WITH PHYSICAL THERAPY THIS MORNING UPON LENS GRINDER AND POLISHER ARRIVAL TO ROOM, PATIENT COMPLAINS OF HEADACHE AND ARTHRITIS PAIN, SHE REQUESTS THERAPIST TO STOP BACK LATER. DAMION FERREIRA LENS GRINDER AND POLISHER
[2018-09-27 08:00] VITALS: BP 130/70
--- NOTE | 2018-09-27 08:30 | NUR ---
Patient resting quietly with no c/o discomfort. Respirations easy and regular. Vital signs stable. No overt distress. WEN MUNIZ R
--- NOTE | 2018-09-27 09:00 | NUR ---
case management visits with patient, patient now agreeable to home health, given choice of companies, she chose [facility], order sent to [facility] to see patient when patient is medically stable for discharge
--- NOTE | 2018-09-27 09:15 | NUR ---
Pt was identified by name & birthdate. Began 23 minute OT session with gentle AROM/stretching exercises as pt verbalized that her right neck & shoulder was "hurting". After demo, pt performed approximately 5 stretches for neck & shoulder. Educated & demonstrated AE to enhance ADL tasks. Patient reporting "having those things at home" & was aware of the uses of AE. Continue with POC. Carolyne NEGRO/Chelsy
--- NOTE | 2018-09-27 11:16 | NUR ---
PHYSICAL THERAPY Patient presented to therapy in supine with 1 liter of spO2 via nasal canula. Patient head of bed was elevated. Patient was identified by name and . Patient performed supine to sitting at EOB with SBA. Patient performed STS transfer with SBA. Patient ambulated with W/W and CLose Supervision for 60' x 1 with 1 liters of spO2 via nasal canula. Patient transferred back to supine in bed with SBA. Patient was left in supine position wit hhead of bed elevated, call light within reach and tray table near patient. Patient transfers herself MOD I to and from bedside commode thoughout the day. Patient was 1:1 with this [facility]AN for 15 minutes total. JOHANNA HANSEN [facility] AFFA[facility] DEAN
[2018-09-27] MEDS ORDERED: VITAMIN D32000 UNI1 PO (11:26)
[2018-09-27] MEDS ORDERED: FUROSEMIDE40 MG PO (11:26)
[2018-09-27] MEDS ORDERED: IMDUR SA60 M1 PO (11:26)
[2018-09-27] MEDS ORDERED: OXYGEN NAS (11:52)
[2018-09-27 12:00] VITALS: BP 107/59
--- NOTE | 2018-09-27 12:30 | NUR ---
INFORMATION FAXED TO [facility] FOR HOME O2.
--- NOTE | 2018-09-27 14:30 | NUR ---
Discharge instructions reviewed with patient/family. Patient receptive and verbalizes understanding. Follow-up care arranged. Written instructions given to patient/family. WEN MUNIZ
--- NOTE | 2018-09-27 15:56 | NUR ---
PHYSICAL THERAPY CO-SIGN I approve of the Phyical Therapy notes written above. FLORENCIA TAVARES PT
--- NOTE | 2018-09-27 16:03 | NUR ---
OCCUPATIONAL THERAPY CO-SIGN I approve of the Occupational Therapy notes written above. YAN RODRIGUEZ OTR/Chelsy
[2018-11-09] MEDS ORDERED: KLORVESS,K40 MEQ/30 PO (14:03)
[2018-11-11] MEDS ORDERED: LASIX40 MG PO (09:39)
[2019-01-13] MEDS ORDERED: B121000 MCG/1 IM (10:01)
[2019-01-13] MEDS ORDERED: LASIX20 MG PO (10:03)
[2019-01-13] MEDS ORDERED: ARTHRITIS PAIN650 M3 PO (10:04)
[2019-01-13] MEDS ORDERED: IMDUR SA30 MG PO (10:05)
[2019-01-13] MEDS ORDERED: HYDROXYZINE PAM50 MG PO (10:07)
[2019-01-15] MEDS ORDERED: AMINOPHYLLIN200 MG PO (11:37)
== END 2018-09-27 14:30 | disposition home health service (06) | DRG 291 ==
LOC: ED 10:00 → 4E 11:56 → EDHOLD 11:56 → 4E 12:04
PROVIDERS: Emergency Medicine; Internal Medicine; Internal Medicine Cardiovascular Disease; ADMIT Internal Medicine
DX: I13.0 Hypertensive heart and chronic kidney disease with heart failure and stage 1 through stage 4 chronic kidney disease, or unspecified chronic kidney disease (principal); I50.33 Acute on chronic diastolic (congestive) heart failure; E44.1 Mild protein-calorie malnutrition; R65.10 Systemic inflammatory response syndrome (SIRS) of non-infectious origin without acute organ dysfunction; E87.2 Acidosis; J98.11 Atelectasis; N18.3 Chronic kidney disease, stage 3 (moderate); E87.6 Hypokalemia; J84.10 Pulmonary fibrosis, unspecified; J47.9 Bronchiectasis, uncomplicated; N60.02 Solitary cyst of left breast; E03.9 Hypothyroidism, unspecified; I89.0 Lymphedema, not elsewhere classified; I87.8 Other specified disorders of veins; E66.01 Morbid (severe) obesity due to excess calories; I48.0 Paroxysmal atrial fibrillation; M81.0 Age-related osteoporosis without current pathological fracture; K57.90 Diverticulosis of intestine, part unspecified, without perforation or abscess without bleeding; E53.8 Deficiency of other specified B group vitamins; F41.9 Anxiety disorder, unspecified; G47.00 Insomnia, unspecified; Z96.653 Presence of artificial knee joint, bilateral; M48.00 Spinal stenosis, site unspecified; I27.20 Pulmonary hypertension, unspecified; R91.8 Other nonspecific abnormal finding of lung field; I08.0 Rheumatic disorders of both mitral and aortic valves; K21.9 Gastro-esophageal reflux disease without esophagitis; I48.2 Chronic atrial fibrillation; Z96.611 Presence of right artificial shoulder joint; E78.5 Hyperlipidemia, unspecified; E55.9 Vitamin D deficiency, unspecified; Z88.2 Allergy status to sulfonamides; Z88.0 Allergy status to penicillin; Z88.8 Allergy status to other drugs, medicaments and biological substances; Z91.018 Allergy to other foods; Z85.3 Personal history of malignant neoplasm of breast; Z92.3 Personal history of irradiation; Z87.440 Personal history of urinary (tract) infections; Z90.710 Acquired absence of both cervix and uterus; Z90.49 Acquired absence of other specified parts of digestive tract; Z82.49 Family history of ischemic heart disease and other diseases of the circulatory system; Z83.3 Family history of diabetes mellitus; Z82.5 Family history of asthma and other chronic lower respiratory diseases; Z79.899 Other long term (current) drug therapy; Z68.38 Body mass index [BMI] 38.0-38.9, adult

== ENCOUNTER → 2018-11-20 | Outpatient (CLI) | payer OTHER ==
[~2018-11-20] MED LIST changes: +AMINOPHYLLIN200 MG PO; +ARTHRITIS PAIN650 M3 PO; +HYDROXYZINE PAM50 MG PO; +IMDUR SA60 M1 PO; +KLORVESS,K40 MEQ/30 PO; +LASIX20 MG PO; +LASIX40 MG PO; +OXYGEN NAS; +POTASSIUM CHLO10 ME4 PO; +VISTARIL50 MG PO; +VITAMIN D32000 UNI1 PO
== END | disposition home or self-care (01) ==
LOC: RESCLI 00:11
DX: I48.0 Paroxysmal atrial fibrillation (principal); E78.2 Mixed hyperlipidemia; K21.9 Gastro-esophageal reflux disease without esophagitis; E03.9 Hypothyroidism, unspecified; I89.0 Lymphedema, not elsewhere classified; M81.0 Age-related osteoporosis without current pathological fracture; R26.2 Difficulty in walking, not elsewhere classified; F41.1 Generalized anxiety disorder; J96.11 Chronic respiratory failure with hypoxia; E11.22 Type 2 diabetes mellitus with diabetic chronic kidney disease; N18.3 Chronic kidney disease, stage 3 (moderate); Z79.899 Other long term (current) drug therapy; Z88.8 Allergy status to other drugs, medicaments and biological substances

== ENCOUNTER 2019-06-20 13:47 | Inpatient (IN) | payer OTHER ==
[~2019-06-20] VITALS: Ht 160 cm; Wt 102.3 kg
[~2019-06-20 13:47] MED LIST changes: +HYDROXYZINE HCL50 MG PO; -HYDROXYZINE PAM50 MG PO; +IMDUR SA60 MG PO
[2019-06-20 13:52] VITALS: BP 126/75
[2019-06-20 15:03] LABS: BASO % 0.4 % (0.0-1.0); EOS % 0.1 % (1.0-4.0); HEMATOCRIT 41.6 % (37.0-47.0); HEMOGLOBIN 12.5 g/dl (12.0-16.0); LYMPH # 0.9 10*3/uL (1.3-4.4); LYMPH % 13.6 % (27.0-41.0); MEAN CELL VOLUME 103.2 fl (81.0-99.0); MEAN PLATELET VOLUME 10.2 fl (9.6-12.3); MONO # 1.1 10*3/uL (0.1-1.0); MONO % 15.6 % (3.0-9.0); NEUT # 4.7 10*3/uL (2.3-7.9); NEUT % 69.9 % (47.0-73.0); PLATELET COUNT AUTOMATED 176 10*3/uL (130-400); RED BLOOD COUNT 4.03 10*6/uL (4.10-5.10); RED CELL DISTRI WIDTH 15.9 % (0-14.5); WHITE BLOOD COUNT 6.7 10*3/uL (4.8-10.8)
[2019-06-20 15:18] LABS: ALBUMIN 3.6 gm/dl (3.1-4.5); CREATININE 1.09 mg/dL (0.55-1.02); POTASSIUM 3.8 mmol/L (3.5-5.1); TOTAL PROTEIN 7.3 gm/dL (6.4-8.2); TROPONIN I 0.027 ng/ml (<0.045)
[2019-06-20 15:19] LABS: INTERNATIONAL NORM RATIO 1.1 (2.0-3.5)
[2019-06-20 15:44] LABS: BILIRUBIN 1+ (NEGATIVE); BLOOD NEGATIVE (NEGATIVE); CLARITY CLEAR (CLEAR); COLOR YELLOW (YELLOW); GLUCOSE NEGATIVE (NEGATIVE); KETONE NEGATIVE (NEGATIVE); LEUKO ESTERASE NEGATIVE (NEGATIVE); NITRITE NEGATIVE (NEGATIVE); PH 7.5 (5.0-9.0)
[2019-06-20 15:50] VITALS: BP 160/105
[2019-06-20 15:52] VITALS: BP 156/100
[2019-06-20 16:09] LABS: BACTERIA TRACE
[2019-06-20 16:25] LABS: URINE AMPHETAMINES < 1000 (1000ng/ml); URINE BARBITURATES < 200 (200ng/ml); URINE BENZODIAZEPINES < 200 (200ng/ml); URINE CANNABINOIDS (THC) < 50 (50ng/ml); URINE COCAINE < 300 (300ng/ml); URINE METHADONE < 300 (300ng/ml); URINE OPIATES < 300 (300ng/ml)
[2019-06-20 16:34] LABS: URINE PHENCYCLIDINE < 25 (25ng/ml)
[2019-06-20 16:37] VITALS: BP 148/106
--- NOTE | 2019-06-20 16:38 | NUR ---
BILATERAL GROIN AREAS ARE REDDENED,NO OPEN WOUNDS ARE NOTED. PEARL LYN
[2019-06-20 16:50] VITALS: BP 125/88
--- NOTE | 2019-06-20 16:50 | NUR ---
WHEN PT ARRIVED TO FLOOR HER LEFT HAND IS VERY RED AND A BLOTCHY RASH WAS ON HER LEFT ARM. IV CARDIZEM STOPPED.
--- NOTE | 2019-06-20 16:50 | NUR ---
A 83, admitted to ICCU, under the services of MANUEL Santo DO with a diagnosis of CHF/ AFIB / HALLUCINATIONS. Chief complaint is INCREASED SOB ,LOWER LEG EDEMA,WEAKNESS AND CONFUSION. Patient arrived via stretcher from ER. Monitor applied. Initial assessment completed. Vital signs taken and recorded. MANUEL SANTO DO notified of admission to the unit. Orders received. See assessment for past medical history, medications and allergies. Patient and/or family oriented to unit. [facility] ICCU visitation policy reviewed. Clothing/patient valuable form completed. ROBERTSON
--- NOTE | 2019-06-20 17:00 | NUR ---
PT REFUSED WOUND PICTURES.
--- NOTE | 2019-06-20 17:00 | NUR ---
LEFT HAND AND ARM REDNESS VERY FAINT AT THIS TIME.
--- NOTE | 2019-06-20 17:07 | NUR ---
LEFT HAND AND FOREARM ARE RED IN COLOR,SMALL BLOTCHY AREAS NOTED TO LEFT FOREARM. CARDIZEM DRIP STOPPED IMMEDIATELY. PT HAS NO OTHER RASH AREAS. RESPIRATIONS ARE NON-LABORED. ICU STAFF AT BEDSIDE NOW. PEARL LYN
--- NOTE | 2019-06-20 18:48 | NUR ---
CARDIOLOGY CONSULT NOTIFICATION LEFT WITH ANSWERING SERVICE WITH REQUEST FOR DOCTOR TO CALL.
--- NOTE | 2019-06-20 18:57 | NUR ---
DR KIMBLE CALLED IN REGARDING PT. ORDER RECEIVED TO START HER HOME DOSE OF LOPRESSOR.
--- NOTE | 2019-06-20 19:22 | NUR ---
[facility] UP TO DATE.
[2019-06-20 20:00] VITALS: BP 134/61
--- NOTE | 2019-06-20 20:00 | NUR ---
PT RESTING IN BED AWAKE, ALERT AND ORIENTED AT THIS TIME. RESP NONLABORED. HEPLOCK PATENT. NO ACUTE DISTRESS NOTED. NO COMPLAINTS VOICED AT THIS TIME. DAUGHTER AT BEDSIDE.
--- NOTE | 2019-06-20 20:20 | NUR ---
MEDICATED WITH TYLENOL PER PRN ORDER FOR C/O RIGHT SHOULDER PAIN.
[2019-06-21] VITALS: BP 147/72
[2019-06-21 04:00] VITALS: BP 100/74
[2019-06-21 05:03] LABS: ALBUMIN 2.9 gm/dl (3.1-4.5); BUN 24 mg/dl (7-24); CHLORIDE 98 mmol/L (98-107); CHOLESTEROL 113 mg/dL (<200); CREATININE 0.91 mg/dL (0.55-1.02); PHOSPHOROUS 3.4 mg/dL (2.5-4.9); POTASSIUM 3.3 mmol/L (3.5-5.1); SGOT/AST 14 IU/L (3-35); SGPT/ALT 12 U/L (12-78); SODIUM 140 mmol/L (136-145); TOTAL PROTEIN 5.9 gm/dL (6.4-8.2); TRIGLYCERIDES 114 mg/dl (<150); VLDL CHOLESTEROL 23 mg/dL (6-40)
[2019-06-21 05:09] LABS: ALKALINE PHOSPHATASE 74 U/L (45-117); FREE T4 0.96 ng/dl (0.76-1.46); HDL CHOLESTEROL 52 mg/dl (40-60); LDL CHOLESTEROL 38 mg/dL (9-159)
[2019-06-21 06:26] LABS: BASO % 0.5 % (0.0-1.0); EOS % 0.7 % (1.0-4.0); HEMATOCRIT 36.5 % (37.0-47.0); HEMOGLOBIN 10.8 g/dl (12.0-16.0); LYMPH # 1.3 10*3/uL (1.3-4.4); LYMPH % 22.6 % (27.0-41.0); MEAN CORPUSCULAR HGB 30.8 pg (27.0-31.0); MEAN CORPUSCULAR HGB CONC 29.6 g/dl (33.0-37.0); MEAN PLATELET VOLUME 10.6 fl (9.6-12.3); MONO # 1.2 10*3/uL (0.1-1.0); NEUT # 3.3 10*3/uL (2.3-7.9); PLATELET COUNT AUTOMATED 173 10*3/uL (130-400); RED BLOOD COUNT 3.51 10*6/uL (4.10-5.10); RED CELL DISTRI WIDTH 15.9 % (0-14.5); WHITE BLOOD COUNT 5.9 10*3/uL (4.8-10.8)
[2019-06-21 08:00] VITALS: BP 107/66
--- NOTE | 2019-06-21 08:16 | NUR ---
Awakened for VS. Oriented x3. Dr. grande here AM labs reviewed.
--- NOTE | 2019-06-21 08:17 | NUR ---
Dtr's x 2 called in and update was given.
[2019-06-21 12:00] VITALS: BP 117/60
--- NOTE | 2019-06-21 12:11 | NUR ---
dR. Vargas IN . assisted to BSC for large soft BM . Taking lunch well.
--- NOTE | 2019-06-21 15:31 | NUR ---
Wildlife Ecologist in to talk to patient. Patient states lives at home alone with her daughter living close by. There are 0 steps in the home. Physician: resident clinic Pharmacy: [facility] Home health services: none Patient's level of ADLs: minimal assist Patient has working utilities: yes DME: walker, O2, portable O2 tanks, O2 supplier [facility] Follow-up physician's appointment after d/c: will be made by the hospitalist nurse director upon discharge Does patient want to access PORTAL?: no Discharge plan discussed with patient. She lives at home with her daughters living close by. She is independent in her ADLs and ambulates with a walker. Discussed home health care services and she denies any home needs at this time. She is unsure of her home O2 flow. When medically stable she will be discharged to home. She states her oldest daughter, Apolonia, will provide transportation on discharge. ATTILA GUILLAUME
[2019-06-21 16:00] VITALS: BP 108/69
[2019-06-21 20:00] VITALS: BP 109/54
--- NOTE | 2019-06-21 20:31 | NUR ---
PATIENT ASSISTED BACK TO BED FROM CHAIR. BILATERAL LEGS PLACED ON PILLOWS. BED IN LOWEST POSITION. CALL LIGHT WITHIN REACH.
[2019-06-22] VITALS: BP 116/56
--- NOTE | 2019-06-22 01:15 | NUR ---
PATIENT SLEEPING QUIETLY IN BED. NO ACUTE DISTRESS NOTED. RESPIRATIONS EVEN AND UNLABORED. BED LOCKED IN LOWEST POSITION. CALL LIGHT WITHIN REACH.
--- NOTE | 2019-06-22 05:33 | NUR ---
PATIENT AWAKE IN BED. PRN TYLENOL GIVEN FOR C/O GENERALIZED PAIN. CALL LIGHT WITHIN REACH. WILL MONITOR FOR EFFECTIVENESS.
--- NOTE | 2019-06-22 06:23 | NUR ---
PER PATIENT PRN TYLENOL EFFECTIVE.
[2019-06-22 06:25] LABS: BASO % 0.6 % (0.0-1.0); EOS # 0.1 10*3/uL (0.0-0.4); EOS % 0.9 % (1.0-4.0); HEMATOCRIT 39.4 % (37.0-47.0); HEMOGLOBIN 11.7 g/dl (12.0-16.0); LYMPH # 1.1 10*3/uL (1.3-4.4); LYMPH % 21.3 % (27.0-41.0); MEAN CELL VOLUME 103.1 fl (81.0-99.0); MEAN CORPUSCULAR HGB 30.6 pg (27.0-31.0); MEAN CORPUSCULAR HGB CONC 29.7 g/dl (33.0-37.0); MONO % 18.3 % (3.0-9.0); NEUT # 3.1 10*3/uL (2.3-7.9); NEUT % 58.5 % (47.0-73.0); PLATELET COUNT AUTOMATED 177 10*3/uL (130-400); RED BLOOD COUNT 3.82 10*6/uL (4.10-5.10); RED CELL DISTRI WIDTH 15.8 % (0-14.5); WHITE BLOOD COUNT 5.4 10*3/uL (4.8-10.8)
[2019-06-22 06:47] LABS: ALBUMIN 3.3 gm/dl (3.1-4.5); BUN 28 mg/dl (7-24); CHLORIDE 99 mmol/L (98-107); PHOSPHOROUS 3.4 mg/dL (2.5-4.9); POTASSIUM 4.1 mmol/L (3.5-5.1); SGOT/AST 15 IU/L (3-35); SGPT/ALT 13 U/L (12-78); SODIUM 139 mmol/L (136-145); TOTAL PROTEIN 6.4 gm/dL (6.4-8.2)
[2019-06-22 06:48] LABS: ALKALINE PHOSPHATASE 82 U/L (45-117)
[2019-06-22 08:00] VITALS: BP 134/80
--- NOTE | 2019-06-22 11:00 | NUR ---
IN TO SEE PATIENT.
--- NOTE | 2019-06-22 11:19 | NUR ---
IN TO SEE PATIENT.
--- NOTE | 2019-06-22 11:28 | NUR ---
PT GIVEN TYLENOL PO PER PRN ORDER FOR C/O RIGHT SHOULDER PAIN. CHRONIC ARTHRITIC PAIN PER PT. WILL MONITOR EFFECTIVENESS.
[2019-06-22 12:00] VITALS: BP 110/70
--- NOTE | 2019-06-22 12:06 | NUR ---
FAMILY IN TO VISIT PATIENT.
[2019-06-22 16:00] VITALS: BP 107/70
--- NOTE | 2019-06-22 17:12 | NUR ---
PT GIVEN PO TYLENOL PER PRN ORDER FOR C/O RIGHT SHOULDER PAIN. WILL MONITOR EFFECTIVENESS.
[2019-06-22 20:00] VITALS: BP 112/63
[2019-06-23] VITALS: BP 117/78
--- NOTE | 2019-06-23 01:36 | NUR ---
PATIENT RESTING IN BED WITH EYES CLOSED. NO SIGNS OR SYMPTOMS OF DISTRESS NOTED. AROUSES TO VERBAL STIMULI. DENIES COMPLAINTS OF PAIN OR DISCOMFORT. O2 ON AT 3L N/C. RESPIRATIONS REGULAR AND NON-LABORED. UP TO BEDSIDE COMMODE WITH ASSIST X1. VITAL SIGNS STABLE. WILL CONTINUE TO MONITOR. CALL LIGHT IN REACH.
--- NOTE | 2019-06-23 07:05 | NUR ---
24 HR chart check completed.
[2019-06-23 09:33] VITALS: BP 124/68
[2019-06-23 12:00] VITALS: BP 112/54
[2019-06-23 16:00] VITALS: BP 111/60
[2019-06-23 20:00] VITALS: BP 137/68
--- NOTE | 2019-06-23 23:43 | NUR ---
PATIENT MEDICATED WITH TYLENOL FOR COMPLAINTS OF GENERALIZED PAIN ALL OVER. ASSISTED TO BEDSIDE COMMODE. RESPIRATIONS REGULAR AND NON-LABORED ON 02 AT 3L N/C. NO SIGNS OR SYMPTOMS OF DISTRESS NOTED. BED ALARM ON AND FUNCTIONING PROPERLY. WILL CONTINUE TO MONITOR. CALL LIGHT IN REACH.
[2019-06-24] VITALS: BP 143/80
[2019-06-24 08:00] VITALS: BP 126/80
--- NOTE | 2019-06-24 10:30 | NUR ---
Cadd Technician in to see patient. Discussed short term SNF and home health care services and she refuses either. She is sitting up in her bedside chair without distress notes. When medically stable she will be discharged to home.
--- NOTE | 2019-06-24 11:31 | NUR ---
PHYSICAL THERAPY Physical therapy evaluation completed, 5E. Full details to follow. Moderate complexity determined after evaluation, [id number]. PT to work on strength, endurance, transfers, safety and gait. Recommending HH at discharge. Thanks Libby Franks, PT, DPT
--- NOTE | 2019-06-24 11:31 | NUR ---
Occupational therapy orders received and OT evaluation completed in full on floor five. Patient precautions include fall risk, ww use, minimal confusion, and 3L02. Per OT eval, OT recommends SNF vs home with HH SN, PT, and OT. Patient stated she is "not going anywhere without her daughters". Patient wants to return home. Patient complexity is low, 96501. Thank you for the referral. Bethanie Novoa, OTR/L
[2019-06-24 11:45] VITALS: BP 120/60
--- NOTE | 2019-06-24 12:00 | NUR ---
Nutritional Support Services Note: BMI >40 per nursing trigger, current BMI is 40. Appetite is good for meals, she currently is on a cardiac diet. Ht.5'3 Wt. 226#. IBW 115#. Discussing po intake with pt. Encouraged adequate protein and calorie intake, wound noted to groin. Pt listened, stated she doesn't want to try and lose any weight at this age. Will follow if needed. [place] Rdn Ld
--- NOTE | 2019-06-24 14:27 | NUR ---
Community Development Coordinator in to see patient. Discussed therapy stating she would benefit from therapy at home. She is hesitantly agreeable. When provided with a list of agencies she chose [facility] as she has had them in the past. Hospitalist nurse director notified.
--- NOTE | 2019-06-24 14:38 | NUR ---
Spoke to Lauryn Zambrano, daughter, at [phone] regarding SNF vs home with home health. Daughter would prefer patient go home with home health care services. Daughter wanted to know if that was her mother's wishes also. Explained this was her mother's wishes also. Hospitalist nurse director notified.
[2019-06-24] MEDS ORDERED: VITAMIN D32000 UNI1 PO (15:15)
[2019-06-24] MEDS ORDERED: POTASSIUM CHLO10 ME4 PO (15:15)
[2019-06-24] MEDS ORDERED: LASIX20 MG PO (15:15)
[2019-06-24 16:00] VITALS: BP 118/52
--- NOTE | 2019-06-24 17:37 | NUR ---
Discharge instructions reviewed with patient/family. Patient receptive and verbalizes understanding. Follow-up care arranged. Written instructions given to patient/family. NATHANAEL ALVARADO
--- NOTE | 2019-06-25 12:37 | NUR ---
Faxed home health referral to [facility]
--- NOTE | 2019-06-25 14:48 | NUR ---
Received call from Rosario at [facility] regarding patient's insurance will not pay for OT and aides but they are going to start nursing and PT.
--- NOTE | 2019-06-27 11:52 | NUR ---
Received call from Andrea at [facility] regarding patient refusing all home health services at this time.
== END 2019-06-24 18:22 | disposition home health service (06) | DRG 70 ==
LOC: ED 13:47 → EDHOLD 16:13 → ICCU 16:13 → 5E 06-21 17:09
PROVIDERS: Hospitalist; Nurse Practitioner Family; Student in an Organized Health Care Education/Training Program; ADMIT Internal Medicine
DX: G93.41 Metabolic encephalopathy (principal); N17.0 Acute kidney failure with tubular necrosis; I50.33 Acute on chronic diastolic (congestive) heart failure; J96.11 Chronic respiratory failure with hypoxia; J96.12 Chronic respiratory failure with hypercapnia; Z68.41 Body mass index [BMI] 40.0-44.9, adult; I11.0 Hypertensive heart disease with heart failure; G93.40 Encephalopathy, unspecified; I48.0 Paroxysmal atrial fibrillation; I89.0 Lymphedema, not elsewhere classified; M81.0 Age-related osteoporosis without current pathological fracture; E66.9 Obesity, unspecified; K21.9 Gastro-esophageal reflux disease without esophagitis; E03.9 Hypothyroidism, unspecified; E87.6 Hypokalemia; E83.42 Hypomagnesemia; F41.9 Anxiety disorder, unspecified; J44.9 Chronic obstructive pulmonary disease, unspecified; E78.5 Hyperlipidemia, unspecified; Z79.01 Long term (current) use of anticoagulants; Z90.49 Acquired absence of other specified parts of digestive tract; Z99.81 Dependence on supplemental oxygen; Z83.3 Family history of diabetes mellitus; Z82.49 Family history of ischemic heart disease and other diseases of the circulatory system; Z83.6 Family history of other diseases of the respiratory system; Z88.0 Allergy status to penicillin; Z88.2 Allergy status to sulfonamides; Z88.8 Allergy status to other drugs, medicaments and biological substances

== ENCOUNTER → 2019-07-12 | Outpatient (CLI) | payer OTHER ==
[2019-07-12 16:16] LABS: BASO % 0.5 % (0.0-1.0); EOS # 0.1 10*3/uL (0.0-0.4); EOS % 0.8 % (1.0-4.0); HEMATOCRIT 37.2 % (37.0-47.0); HEMOGLOBIN 11.2 g/dl (12.0-16.0); LYMPH # 0.8 10*3/uL (1.3-4.4); LYMPH % 13.6 % (27.0-41.0); MEAN CORPUSCULAR HGB CONC 30.1 g/dl (33.0-37.0); MEAN PLATELET VOLUME 9.7 fl (9.6-12.3); MONO # 0.8 10*3/uL (0.1-1.0); NEUT # 4.3 10*3/uL (2.3-7.9); NEUT % 71.9 % (47.0-73.0); PLATELET COUNT AUTOMATED 181 10*3/uL (130-400); RED BLOOD COUNT 3.61 10*6/uL (4.10-5.10); RED CELL DISTRI WIDTH 15.5 % (0-14.5)
[2019-07-12 16:31] LABS: ALBUMIN 3.3 gm/dl (3.1-4.5); ALKALINE PHOSPHATASE 105 U/L (45-117); BUN 18 mg/dl (7-24); CHLORIDE 101 mmol/L (98-107); CREATININE 1.05 mg/dL (0.55-1.02); POTASSIUM 3.4 mmol/L (3.5-5.1); SGOT/AST 20 IU/L (3-35); SGPT/ALT 14 U/L (12-78); SODIUM 141 mmol/L (136-145); TOTAL PROTEIN 6.6 gm/dL (6.4-8.2)
[2019-07-12 16:54] LABS: ABG BASE EXCESS 9.8 mmol/L (-2.0-2.0); ABG HCO3 35.5 mmol/l (22-26); ABG O2 SATURATION 88.5 % (95-97); ARTERIAL BLOOD GAS PCO2 54.8 mmHg (35-45); ARTERIAL BLOOD GAS PH 7.427 (7.35-7.45); ARTERIAL BLOOD GAS PO2 56.9 mmHg (80-90)
[2019-07-12 17:03] LABS: VITAMIN D, 25-HYDROXY 26.7 ng/mL (30-100)
== END | disposition home or self-care (01) ==
LOC: RESCLI 00:47
PROVIDERS: Internal Medicine
DX: M15.0 Primary generalized (osteo)arthritis (principal); E78.2 Mixed hyperlipidemia; E03.9 Hypothyroidism, unspecified; I48.0 Paroxysmal atrial fibrillation; K21.9 Gastro-esophageal reflux disease without esophagitis; E53.8 Deficiency of other specified B group vitamins; M81.0 Age-related osteoporosis without current pathological fracture; I89.0 Lymphedema, not elsewhere classified; F41.9 Anxiety disorder, unspecified; I27.21 Secondary pulmonary arterial hypertension; I12.9 Hypertensive chronic kidney disease with stage 1 through stage 4 chronic kidney disease, or unspecified chronic kidney disease; N18.3 Chronic kidney disease, stage 3 (moderate); E78.1 Pure hyperglyceridemia; R26.2 Difficulty in walking, not elsewhere classified; F41.1 Generalized anxiety disorder; J96.11 Chronic respiratory failure with hypoxia; R44.1 Visual hallucinations; M25.511 Pain in right shoulder; Z79.899 Other long term (current) drug therapy

== ENCOUNTER 2019-08-11 18:19 | Inpatient (IN) | payer OTHER ==
[2019-08-11] VITALS (7 sets, daily range): BP systolic 102–140; BP diastolic 73–79
[~2019-08-11] VITALS: Ht 165.1 cm; Wt 107.7 kg
[2019-08-11 18:54] LABS: BASO % 0.5 % (0.0-1.0); EOS % 0.5 % (1.0-4.0); HEMATOCRIT 35.6 % (37.0-47.0); HEMOGLOBIN 10.4 g/dl (12.0-16.0); LYMPH # 0.7 10*3/uL (1.3-4.4); LYMPH % 12.6 % (27.0-41.0); MEAN CORPUSCULAR HGB 29.8 pg (27.0-31.0); MEAN CORPUSCULAR HGB CONC 29.2 g/dl (33.0-37.0); MEAN PLATELET VOLUME 10.3 fl (9.6-12.3); MONO # 0.9 10*3/uL (0.1-1.0); NEUT # 3.9 10*3/uL (2.3-7.9); NEUT % 69.9 % (47.0-73.0); PLATELET COUNT AUTOMATED 171 10*3/uL (130-400); RED BLOOD COUNT 3.49 10*6/uL (4.10-5.10); RED CELL DISTRI WIDTH 15.4 % (0-14.5); WHITE BLOOD COUNT 5.6 10*3/uL (4.8-10.8)
[2019-08-11 19:07] LABS: ACT PARTIAL THROMBO TIME 27.9 SECONDS (20.0-32.1)
[2019-08-11 19:12] LABS: ALBUMIN 3.6 gm/dl (3.1-4.5); CREATININE 1.28 mg/dL (0.55-1.02); POTASSIUM 3.6 mmol/L (3.5-5.1); TOTAL PROTEIN 6.8 gm/dL (6.4-8.2)
[2019-08-11 19:13] LABS: TROPONIN I 0.027 ng/ml (<0.045)
[2019-08-11 19:41] LABS: BILIRUBIN NEGATIVE (NEGATIVE); BLOOD NEGATIVE (NEGATIVE); CLARITY CLEAR (CLEAR); COLOR YELLOW (YELLOW); GLUCOSE NEGATIVE (NEGATIVE); KETONE NEGATIVE (NEGATIVE); LEUKO ESTERASE NEGATIVE (NEGATIVE); NITRITE NEGATIVE (NEGATIVE); UROBILINOGEN 0.2 E.U./dl (0.2-1.0)
[2019-08-11 19:47] LABS: BACTERIA 1+
--- NOTE | 2019-08-11 20:35 | NUR ---
BLISTER NOTED TO PTS LEFT GREAT TOE
--- NOTE | 2019-08-11 20:47 | NUR ---
UP TO BEDSIDE COMMODE
--- NOTE | 2019-08-11 21:10 | NUR ---
A 83, admitted to 4E, under the services of JORDAN Bowens DO with a diagnosis of CHF EXACERBATION, A-FIB WITH RVR. Chief complaint is EDEMA. Patient arrived via ambulance from ER. Monitor applied. Initial assessment completed. Vital signs taken and recorded. JORDAN BOWENS DO notified of admission to the unit. Orders received. See assessment for past medical history, medications and allergies. Patient and/or family oriented to unit. visitation policy reviewed. Clothing/patient valuable form completed. SANTANA HAIRSTON
--- NOTE | 2019-08-11 22:21 | NUR ---
DR. BOLANOS NOTIFIED OF PATIENT'S ADMISSION TO FLOOR AND THAT MEDS WERE VERIFIED WITH THE PATIENT, PATIENT HAD A BLISTER BREAK ON LEFT GREAT TOE AND OF CRITICAL LACTIC ACID OF 2.2. NEW ORDERS TO ADMIT TO TELE, CONSULT DR. ANGELES, RESUME HOME MEDICATIONS AND GIVE TOPROL XL 50MG AND TO KEEP PATIENT NPO IN CASE SUPERVISOR INSPECTION ROOM WANTS TO DO ANYTHING TOMORROW.
--- NOTE | 2019-08-11 22:27 | NUR ---
[facility] NOTIFIED OF CONSULT FOR DR. ANGELES. REQUESTED CALL BACK D/T PATIENT'S HEART RATE OF 120'2-140'S.
--- NOTE | 2019-08-11 22:30 | NUR ---
SPOKE WITH DR. MARLEY. NEW ORDER TO GET ECHO AND IF TOPROL XL DOESN'T WORK THEN TO CALL HIM BACK.
[2019-08-12] VITALS: BP 114/82
--- NOTE | 2019-08-12 00:07 | NUR ---
DR. BOLANOS NOTIFIED OF CRITICAL LACTIC ACID OF 2.1 TRENDING DOWN FROM 09/29.
--- NOTE | 2019-08-12 07:37 | NUR ---
JERED SHAW [id number] Please refer to the physician's history and physical for past medical history, comorbid conditions, and allergies. Diagnosis: CHF EXACERBATION ATRIAL FIBRILLATION WITH RVR Jp Score: 16,AT RISK WOUND DESCRIPTIONS: Wound Number: 1 Location of the wound: left great toe Type of wound: stage 2 Thickness: Partial Size: 1.7cm x 2.0cm x 0.1cm Tunneling: none Undermining: none Sinus Tract: none Presence of Exudate: Serosanguineous Amount: Light Color: Red Odor: None Periwound Skin Appearance: Erythema Wound edges: approximated Pain (associated with wound): none to time of assessment How does patient state this happened? pt states the blister just open up Wound Number: 2 Location of the wound: left lower extremity Thickness: Full Size: 3.0cm x 4.5cm x 0.1cm Tunneling: none Undermining: none Sinus Tract: none Presence of Exudate: Serosanguineous Amount: Light Color: Red, yellow Odor: None Periwound Skin Appearance: Erythema Wound edges: approximated Pain (associated with wound): none at time of assessment How does patient state this happened? pt stated it just happened Wound Number: 3 Location of the wound: right fourth toe Type of wound: stage 1 Size: 1.3cm x 0.9cm x <0.1cm Tunneling: none Undermining: none Sinus Tract: none Presence of Exudate: none Amount: None Color: Red Odor: None Periwound Skin Appearance: Normal Wound edges: closed Pain (associated with wound): none at time of assessment How does patient state this happened? pt unsure how this happened Surface the patient is resting on: Isoflex SKIN PREVENTION RECOMMENDATION: 1. Pressure redistribution support surface as appropriate 2. Elevate heels 3. Remove boots/TEDS every shift and reapply 4. Head of bed 30 degrees as tolerated 5. Assess nutrition and hydration 6. Manage moisture 7. Avoid the use of containment devices while in bed 8. Use absorptive products on surfaces limit layers of linens on bed 9. Turn and reposition every 1-2 hours in bed and every 1 hour in chair as tolerated 10. Weight shifts every 15 minutes while up in chair 11. Offloading with pillows or device to keep heels elevated off bed 12. Monitor skin at least every shift 13. Inspect under medical devices twice a day WOUND TREATMENT RECOMMENDATIONS: Consult podiatry for areas to left lower extremity, left great toe and right fourth toe Venous and arterial studies to due non-healing wounds. Stage 1 guideline: Apply sureprep to right 4th toe and cover with bandaid daily. Full thickness guidelines: Cleanse left lower extremity with nss and apply sureprep around the wound therahoney sheet to wound bed maxorb to wound bed and cover with abd and lightly wrap with kerlix daily. Stage 2 guidelines: Cleanse left great toe with nss and apply sureprep around the wound hydrogel to wound bed and cover with dsd daily and prn for soiling. Heel raiser pro boots to bilateral feet while in bed. Lymphedema clinic upon discharge.
--- NOTE | 2019-08-12 07:51 | NUR ---
RESTING IN BED. RESP EASY AND REGULAR, 3L NC. DENIES C/O AT THIS TIME. CALL LIGHT IN REACH. WILL CONTINUE TO MONITOR.
[2019-08-12 08:00] VITALS: BP 112/76
--- NOTE | 2019-08-12 08:38 | NUR ---
Dr. Shin stated to put wound care recommendations in the hospitalist office for Dr. Byrd.
--- NOTE | 2019-08-12 09:00 | NUR ---
Farm Consultant in to talk to patient. Patient states lives at home with alone. There are few steps in the home. Physician: [facility] Home health services: none Patient's level of ADLs: INDEPENDENT Patient has working utilities: all working DME: walker, home oxygen, portable tanks from [facility] Follow-up physician's appointment after d/c: will be made by hospitalist nurse director upon discharge Does patient want to access PORTAL?: no Discharge plan discussed with patient, she states she lives at home alone, but her daughter lives close by and visits and helps on a daily basis, she states she is independent with a walker, and independent in adls, she has home oxygen from [facility] she stated she will return home when medically stable . discussed with her VNA and she declines any home services, case managment will follow. NENA SAMAYOA
--- NOTE | 2019-08-12 10:53 | NUR ---
10:00 AM MEDS TO BE GIVEN AT A LATER TIME. PT REMAINS NPO.
[2019-08-12 11:56] VITALS: BP 115/90
--- NOTE | 2019-08-12 14:45 | NUR ---
TYLENOL GIVEN FOR C/O RT SHOULDER PAIN. RATES 5/10 ON PAIN SCALE. WILL MONITOR
--- NOTE | 2019-08-12 15:55 | NUR ---
TYLENOL HELPING PER PT.
[2019-08-12 16:00] VITALS: BP 102/60
[2019-08-12 20:00] VITALS: BP 115/77
[2019-08-13] VITALS: BP 111/69
--- NOTE | 2019-08-13 00:41 | NUR ---
24 HR chart check completed.
--- NOTE | 2019-08-13 04:26 | NUR ---
Recommend follow up for wound care in outpatient setting patient refused at this time.
[2019-08-13 06:41] LABS: BASO % 0.6 % (0.0-1.0); EOS # 0.1 10*3/uL (0.0-0.4); EOS % 2.1 % (1.0-4.0); HEMATOCRIT 33.4 % (37.0-47.0); HEMOGLOBIN 9.8 g/dl (12.0-16.0); LYMPH # 0.9 10*3/uL (1.3-4.4); LYMPH % 19.7 % (27.0-41.0); MEAN CELL VOLUME 101.8 fl (81.0-99.0); MEAN CORPUSCULAR HGB 29.9 pg (27.0-31.0); MEAN CORPUSCULAR HGB CONC 29.3 g/dl (33.0-37.0); MEAN PLATELET VOLUME 10.7 fl (9.6-12.3); MONO # 0.9 10*3/uL (0.1-1.0); MONO % 18.2 % (3.0-9.0); NEUT # 2.8 10*3/uL (2.3-7.9); NEUT % 59.2 % (47.0-73.0); PLATELET COUNT AUTOMATED 163 10*3/uL (130-400); RED BLOOD COUNT 3.28 10*6/uL (4.10-5.10); RED CELL DISTRI WIDTH 14.9 % (0-14.5); WHITE BLOOD COUNT 4.8 10*3/uL (4.8-10.8)
[2019-08-13 06:46] LABS: CREATININE 1.16 mg/dL (0.55-1.02); POTASSIUM 3.7 mmol/L (3.5-5.1)
[2019-08-13 08:00] VITALS: BP 105/82; BP 98/60
--- NOTE | 2019-08-13 09:00 | NUR ---
case management visits with patient again discussed with her a discharge plan including a short term group home for rehab, she declined a SNF, discussed with her VNA and educated her on their services, she was receptive to VNA, given choice of companies she chose [facility]. case management spoke to Rosario from [facility] and informed her of referral
--- NOTE | 2019-08-13 09:26 | NUR ---
HELD PO LOPRESSOR FOR MANUAL BP 98/60. DR. HERNANDEZ NOTIFIED OF BP AND ORDERED TO HOLD THE MED THIS AM.
--- NOTE | 2019-08-13 09:56 | NUR ---
ALSO HOLDING IMDUR SA FOR BP 98/60 THIS MORNING.
[2019-08-13 12:00] VITALS: BP 114/64
--- NOTE | 2019-08-13 14:10 | NUR ---
Patient not available for Occupational Therapy as she is out of her room for an ultrasound. Shai Pacheco OTR/L
--- NOTE | 2019-08-13 14:30 | NUR ---
PT eval attempted, patient was out of her room for an US. Attempt PT Eval later.
[2019-08-13 16:00] VITALS: BP 116/83
--- NOTE | 2019-08-13 17:06 | NUR ---
PODIATRY RESIDENT NOTIFIED OF LIMITED STUDY RESULTS FROM THE ARTERIAL ULTRASOUND, PER DR. BANSAL-RADIOLOGIST.
[2019-08-13 20:00] VITALS: BP 122/87
[2019-08-14] VITALS: BP 112/79
--- NOTE | 2019-08-14 04:16 | NUR ---
24 HR chart check completed.
[2019-08-14 06:34] LABS: CHLORIDE 100 mmol/L (98-107); POTASSIUM 3.4 mmol/L (3.5-5.1); SODIUM 142 mmol/L (136-145)
[2019-08-14 06:40] LABS: BUN 26 mg/dl (7-24); CREATININE 1.03 mg/dL (0.55-1.02)
[2019-08-14 08:30] VITALS: BP 128/90
--- NOTE | 2019-08-14 08:35 | NUR ---
PEDAL AND POSTERIOR TIBIAL PULSES AUDIBLE/STRONG WITH DOPPLER.
--- NOTE | 2019-08-14 09:00 | NUR ---
case management visits with patient, she will be discharged to home today, case management notified [facility] that patient will be discharged
--- NOTE | 2019-08-14 09:00 | NUR ---
Occupational Therapy evaluation completed on 4 with full eval to follow. Precautions include fall risk, obesity, BLE lymphedema,IV UE,SOB w/min exertion, oxygen dependent, moderate complexity level 29317. Recommend OT for self care training and into to adaptive equipment for LB and bed transfers and safety with functional mobility w/ walker and energy conservation/work simplification education. Patient declines SNF, therefore home health indicated for SN, OT,PT with family to check in daily. Thank you. Taylor Pacheco OTR/L
--- NOTE | 2019-08-14 10:59 | NUR ---
PHYSICAL THERAPY PHYSICAL THERAPY Eval completed pt moderate level of complexity 65226 recommend SNF however per pt she will go home w HH and daughters will check on her. PT to work on transfers, strengthening, amb with AD, safety and balance. Thank you Dania Demarco PT =
[2019-08-14] MEDS ORDERED: METOPROLOL TAR100 M1 PO (11:23)
[2019-08-14] MEDS ORDERED: POTASSIUM CHLO10 ME4 PO (11:23)
[2019-08-14] MEDS ORDERED: LASIX20 MG PO (11:23)
[2019-08-14 12:00] VITALS: BP 102/50
--- NOTE | 2019-08-14 13:34 | NUR ---
HELD IMDUR SA TODAY FOR BP 102/50.
--- NOTE | 2019-08-14 14:56 | NUR ---
IN PATIENTS ROOM TO TAKE OFF HER CARDIAC LEADS/MONITOR AND TAKE OUT IV. PT STATES THAT SHE WILL CALL HER DAUGHTER NOW TO PICK HER UP. REVIEWED ORDERS AND DISCHARGE PLANS WITH THE PATIENT, SHE STATES THAT SHE UNDERSTANDS THE PLANS.
[2019-08-14 16:00] VITALS: BP 126/88
--- NOTE | 2019-08-14 16:42 | NUR ---
PATIENT'S DAUGHTER IS DOWNSTAIRS IN LOBBY WAITING FOR PATIENT. PREPARING TO TAKE TO LOBBY BY WHEELCHAIR.
--- NOTE | 2019-08-14 16:51 | NUR ---
PATIENT DISCHARGED TO [facility] BY WHEELCHAIR, ACCOMPANIED BY [facility], FOR TRANSPORT HOME BY PRIVATE VEHICLE WITH HER DAUGHTER.
--- NOTE | 2019-08-15 08:32 | NUR ---
PHYSICAL THERAPY CO-SIGN I approve of the Physical Therapy notes written above. Dania Demarco PT
--- NOTE | 2019-08-16 12:51 | NUR ---
FRED received call from [facility] patient refused to be admitted to their services when they spoke with her. Stone Fabricator are aware. -FRED Marshall
== END 2019-08-14 17:37 | disposition home health service (06) | DRG 291 ==
LOC: ED 18:19 → 4E 20:52
PROVIDERS: Internal Medicine; Physician Assistant; ADMIT Internal Medicine
DX: I13.0 Hypertensive heart and chronic kidney disease with heart failure and stage 1 through stage 4 chronic kidney disease, or unspecified chronic kidney disease (principal); R65.11 Systemic inflammatory response syndrome (SIRS) of non-infectious origin with acute organ dysfunction; I50.43 Acute on chronic combined systolic (congestive) and diastolic (congestive) heart failure; J96.12 Chronic respiratory failure with hypercapnia; J96.11 Chronic respiratory failure with hypoxia; I31.3 Pericardial effusion (noninflammatory); N18.3 Chronic kidney disease, stage 3 (moderate); E03.9 Hypothyroidism, unspecified; I89.0 Lymphedema, not elsewhere classified; M48.00 Spinal stenosis, site unspecified; I27.21 Secondary pulmonary arterial hypertension; M81.0 Age-related osteoporosis without current pathological fracture; E53.8 Deficiency of other specified B group vitamins; Z96.653 Presence of artificial knee joint, bilateral; Z96.611 Presence of right artificial shoulder joint; I48.0 Paroxysmal atrial fibrillation; F41.9 Anxiety disorder, unspecified; K21.9 Gastro-esophageal reflux disease without esophagitis; J44.9 Chronic obstructive pulmonary disease, unspecified; K57.90 Diverticulosis of intestine, part unspecified, without perforation or abscess without bleeding; K44.9 Diaphragmatic hernia without obstruction or gangrene; E78.5 Hyperlipidemia, unspecified; I08.1 Rheumatic disorders of both mitral and tricuspid valves; E66.01 Morbid (severe) obesity due to excess calories; D64.9 Anemia, unspecified; S91.109A Unspecified open wound of unspecified toe(s) without damage to nail, initial encounter; X58.XXXA Exposure to other specified factors, initial encounter; Y93.89 Activity, other specified; Y92.89 Other specified places as the place of occurrence of the external cause; Y99.8 Other external cause status; Z99.81 Dependence on supplemental oxygen; Z68.39 Body mass index [BMI] 39.0-39.9, adult; Z88.8 Allergy status to other drugs, medicaments and biological substances; Z88.0 Allergy status to penicillin; Z88.2 Allergy status to sulfonamides; Z88.1 Allergy status to other antibiotic agents; Z90.711 Acquired absence of uterus with remaining cervical stump; Z90.49 Acquired absence of other specified parts of digestive tract; Z82.49 Family history of ischemic heart disease and other diseases of the circulatory system; Z83.3 Family history of diabetes mellitus; Z82.5 Family history of asthma and other chronic lower respiratory diseases; Z85.3 Personal history of malignant neoplasm of breast; Z92.3 Personal history of irradiation; Z79.899 Other long term (current) drug therapy; Z68.37 Body mass index [BMI] 37.0-37.9, adult

== ENCOUNTER 2019-08-16 03:25 | Emergency (ER) | payer OTHER ==
[~2019-08-16] VITALS: Ht 165.1 cm; Wt 105.9 kg
[~2019-08-16 03:25] MED LIST changes: +METOPROLOL TAR100 M1 PO
[2019-08-16 04:12] VITALS: BP 110/82
== END 2019-08-16 04:50 | disposition home or self-care (01) ==
LOC: ED 03:25
DX: S81.811A Laceration without foreign body, right lower leg, initial encounter (principal); S80.11XA Contusion of right lower leg, initial encounter; R60.0 Localized edema; J44.9 Chronic obstructive pulmonary disease, unspecified; K21.9 Gastro-esophageal reflux disease without esophagitis; E78.5 Hyperlipidemia, unspecified; E03.9 Hypothyroidism, unspecified; I11.0 Hypertensive heart disease with heart failure; I50.9 Heart failure, unspecified; E66.9 Obesity, unspecified; I48.0 Paroxysmal atrial fibrillation; Z68.30 Body mass index [BMI] 30.0-30.9, adult; Z88.8 Allergy status to other drugs, medicaments and biological substances; Z88.0 Allergy status to penicillin; Z88.2 Allergy status to sulfonamides; Z79.899 Other long term (current) drug therapy; Z90.710 Acquired absence of both cervix and uterus; Z90.49 Acquired absence of other specified parts of digestive tract; W06.XXXA Fall from bed, initial encounter; Y93.89 Activity, other specified; Y92.098 Other place in other non-institutional residence as the place of occurrence of the external cause; Y99.8 Other external cause status

== ENCOUNTER 2019-08-17 19:33 | Inpatient (IN) | payer OTHER ==
[~2019-08-17] VITALS: Ht 167.6 cm; Wt 104.0 kg
[2019-08-17 19:54] VITALS: BP 107/47
[2019-08-17 21:01] LABS: BILIRUBIN NEGATIVE (NEGATIVE); BLOOD NEGATIVE (NEGATIVE); CLARITY SL CLOUDY (CLEAR); COLOR YELLOW (YELLOW); GLUCOSE NEGATIVE (NEGATIVE); KETONE NEGATIVE (NEGATIVE); LEUKO ESTERASE 1+ (NEGATIVE); NITRITE NEGATIVE (NEGATIVE); UROBILINOGEN 0.2 E.U./dl (0.2-1.0)
[2019-08-17 21:08] LABS: BACTERIA 2+; WBC 31-40 wbc/hpf (0-5)
[2019-08-17 21:15] VITALS: BP 116/42
[2019-08-17 21:28] LABS: BASO % 0.5 % (0.0-1.0); EOS % 0.5 % (1.0-4.0); HEMATOCRIT 31.8 % (37.0-47.0); HEMOGLOBIN 9.4 g/dl (12.0-16.0); LYMPH # 0.9 10*3/uL (1.3-4.4); LYMPH % 13.4 % (27.0-41.0); MEAN CELL VOLUME 101.6 fl (81.0-99.0); MEAN CORPUSCULAR HGB CONC 29.6 g/dl (33.0-37.0); MEAN PLATELET VOLUME 10.6 fl (9.6-12.3); MONO # 1.3 10*3/uL (0.1-1.0); MONO % 19.4 % (3.0-9.0); NEUT # 4.3 10*3/uL (2.3-7.9); NEUT % 65.7 % (47.0-73.0); PLATELET COUNT AUTOMATED 181 10*3/uL (130-400); RED BLOOD COUNT 3.13 10*6/uL (4.10-5.10); RED CELL DISTRI WIDTH 15.2 % (0-14.5); WHITE BLOOD COUNT 6.5 10*3/uL (4.8-10.8)
[2019-08-17 21:39] LABS: ACT PARTIAL THROMBO TIME 28.8 SECONDS (20.0-32.1); INTERNATIONAL NORM RATIO 1.1 (2.0-3.5)
[2019-08-17 21:44] LABS: ALKALINE PHOSPHATASE 79 U/L (45-117); BUN 33 mg/dl (7-24); CHLORIDE 102 mmol/L (98-107); LIPASE 206 U/L (73-393); POTASSIUM 4.3 mmol/L (3.5-5.1); SGOT/AST 20 IU/L (3-35); SGPT/ALT 15 U/L (12-78); SODIUM 141 mmol/L (136-145); TOTAL PROTEIN 6.2 gm/dL (6.4-8.2)
[2019-08-17 21:46] LABS: TROPONIN I < 0.015 ng/ml (<0.045)
[2019-08-17 22:00] VITALS: BP 125/50
--- NOTE | 2019-08-17 22:01 | NUR ---
PT RESTING IN BED WITH NO SIGNS OF ACUTE DISTRESS AT THIS TIME. RESPS ARE EASY AND NONLABORED. BED IS IN LOW POSITION. CALL RADER WITHIN REACH. FAMILY AT BEDSIDE. WILL CONTINUE TO MONITOR.
--- NOTE | 2019-08-17 22:31 | NUR ---
CALLED TO GIVE REPORT TO THE FLOOR. THEY ASKED TO GIVE A FEW MINUTES AND THEY WILL CONTACT BACK.
--- NOTE | 2019-08-17 22:55 | NUR ---
A 83, admitted to 4E, under the services of JORDAN Bowens DO with a diagnosis of CHF/AFIB/PNEUMONIA. Chief complaint is EDEMA. Patient arrived via stretcher from ER. Monitor applied. Initial assessment completed. Vital signs taken and recorded. JORDAN BOWENS DO notified of admission to the unit. Orders received. See assessment for past medical history, medications and allergies. Patient and/or family oriented to unit. visitation policy reviewed. Clothing/patient valuable form completed. DAVID MCNALLY A
[2019-08-17 23:58] VITALS: BP 106/60
[2019-08-18] VITALS: BP 106/59
--- NOTE | 2019-08-18 01:00 | NUR ---
DR. WILLOUGHBY CONTACTED IN REGARDS TO WOUND CARE ORDERS AND MED REC BEING UP TO DATE.
--- NOTE | 2019-08-18 03:06 | NUR ---
PRN VISTARIL GIVEN FOR C/O INSOMNIA. CALL LIGHT IS WITHIN REACH, WILL MONITOR EFFECT.
--- NOTE | 2019-08-18 04:00 | NUR ---
PRN VISTARIL SEEMS EFFECTIVE. PATIENT SLEEPING. CALL LIGHT IS WITHIN REACH.
[2019-08-18 06:36] LABS: BASO % 0.5 % (0.0-1.0); EOS # 0.1 10*3/uL (0.0-0.4); EOS % 0.8 % (1.0-4.0); HEMATOCRIT 31.4 % (37.0-47.0); HEMOGLOBIN 9.3 g/dl (12.0-16.0); LYMPH # 0.9 10*3/uL (1.3-4.4); LYMPH % 14.9 % (27.0-41.0); MEAN CELL VOLUME 101.3 fl (81.0-99.0); MEAN CORPUSCULAR HGB CONC 29.6 g/dl (33.0-37.0); MEAN PLATELET VOLUME 10.5 fl (9.6-12.3); MONO # 1.1 10*3/uL (0.1-1.0); MONO % 18.6 % (3.0-9.0); NEUT # 3.9 10*3/uL (2.3-7.9); NEUT % 64.7 % (47.0-73.0); PLATELET COUNT AUTOMATED 173 10*3/uL (130-400); RED CELL DISTRI WIDTH 15.2 % (0-14.5)
[2019-08-18 07:02] LABS: CREATININE 1.44 mg/dL (0.55-1.02); FREE T4 1.11 ng/dl (0.76-1.46); PHOSPHOROUS 3.2 mg/dL (2.5-4.9); POTASSIUM 3.6 mmol/L (3.5-5.1)
[2019-08-18 07:08] LABS: THYROID STIM HORMONE (HS) 6.22 uIU/ml (0.358-4.75)
[2019-08-18 08:00] VITALS: BP 110/48
[2019-08-18 08:16] LABS: VITAMIN D, 25-HYDROXY 31.8 ng/mL (30-100)
--- NOTE | 2019-08-18 11:05 | NUR ---
DR. WATTERS NOTIFIED OF NEW CONSULT FOR DR. GARCIA. NO NEW ORDERS AT THIS TIME
[2019-08-18 12:00] VITALS: BP 95/53
--- NOTE | 2019-08-18 12:00 | NUR ---
PHYSICAL THERAPY PT EVAL COMPLETED 08/18/19: FULL EVAL TO FOLLOW. RECOMMEND PT WHILE HERE TO ADDRESS DECREASED FUNCTIONAL MOBILITY. PT EVAL IS MODERATE COMPLEXITY: 33502. D/C RECOMMENDATIONS AT THIS TIME ARE TO RETURN TO HOME WITH FAMILY SUPPORT AND HOME HEALTH SERVICES. THANK YOU FOR REFERRAL BROCK WILKINSON PT
[2019-08-18 16:00] VITALS: BP 107/72
[2019-08-18 20:00] VITALS: BP 95/58
[2019-08-19] VITALS: BP 100/79
--- NOTE | 2019-08-19 01:05 | NUR ---
24 HR chart check completed.
--- NOTE | 2019-08-19 02:43 | NUR ---
PATIENT MEDICATED WITH NORCO FOR COMPLAINTS OF HEEL PAIN. WILL CONTINUE TO MONITOR.
[2019-08-19 06:20] LABS: BASO % 0.6 % (0.0-1.0); EOS % 0.8 % (1.0-4.0); HEMATOCRIT 28.5 % (37.0-47.0); HEMOGLOBIN 8.4 g/dl (12.0-16.0); LYMPH % 20.2 % (27.0-41.0); MEAN CORPUSCULAR HGB 29.5 pg (27.0-31.0); MEAN CORPUSCULAR HGB CONC 29.5 g/dl (33.0-37.0); MEAN PLATELET VOLUME 10.7 fl (9.6-12.3); MONO % 19.5 % (3.0-9.0); NEUT # 2.8 10*3/uL (2.3-7.9); NEUT % 58.5 % (47.0-73.0); PLATELET COUNT AUTOMATED 163 10*3/uL (130-400); RED BLOOD COUNT 2.85 10*6/uL (4.10-5.10); RED CELL DISTRI WIDTH 15.2 % (0-14.5); WHITE BLOOD COUNT 4.9 10*3/uL (4.8-10.8)
[2019-08-19 06:27] LABS: POTASSIUM 3.8 mmol/L (3.5-5.1)
[2019-08-19 06:33] LABS: CREATININE 1.33 mg/dL (0.55-1.02)
--- NOTE | 2019-08-19 06:43 | NUR ---
JERED SHAW [id number] Please refer to the physician's history and physical for past medical history, comorbid conditions, and allergies. Diagnosis: CHRONIC HEART FAILURE,ATRIAL FIBRILLATION Jp Score: 18,AT RISK WOUND DESCRIPTIONS: Wound Number: 1 Location of the wound: right lower extremity lateral Type of wound: traumatic Thickness: Full Size: 2.1cm x 1.7cm x 0.4cm Tunneling: none Undermining: none Sinus Tract: none Presence of Exudate: Serous sanguineous Amount: Light Color: Yellow, red Odor: None Periwound Skin Appearance: Erythema Wound edges: approximated Pain (associated with wound): tender to touch How does patient state this happened? pt stated she hit on wood platform that was made by her son Wound Number: 3 Location of the wound: left great toe Type of wound: stage 2 Thickness: Partial Size: 2.1cm x 2.5cm x <0.1cm Tunneling: none Undermining: none Sinus Tract: none Presence of Exudate: Serosanguineous Amount: Light Color: Red Odor: None Periwound Skin Appearance: Edema Wound edges: approximated Pain (associated with wound): tender to touch How does patient state this happened? pt stated the blister just formed and open up about one week ago Wound Number: 2 & 4 Location of the wound: right lower extremity medial and anterior Type of wound: Traumatic Thickness: Partial Size: 0.9cm x 5.5cm x 0.1cm Tunneling: none Undermining: none Sinus Tract: none Presence of Exudate: Serosanguineous Amount: Light Color: Red, brown Odor: None Periwound Skin Appearance: Erythema, edema Wound edges: approximated Pain (associated with wound): none to time of assessment How does patient state this happened? pt stated she hit on wood platform that was made by her son Surface the patient is resting on: Isoflex SKIN PREVENTION RECOMMENDATION: 1. Pressure redistribution support surface as appropriate 2. Elevate heels 3. Remove boots/TEDS every shift and reapply 4. Head of bed 30 degrees as tolerated 5. Assess nutrition and hydration 6. Manage moisture 7. Avoid the use of containment devices while in bed 8. Use absorptive products on surfaces limit layers of linens on bed 9. Turn and reposition every 1-2 hours in bed and every 1 hour in chair as tolerated 10. Weight shifts every 15 minutes while up in chair 11. Offloading with pillows or device to keep heels elevated off bed 12. Monitor skin at least every shift 13. Inspect under medical devices twice a day WOUND TREATMENT RECOMMENDATIONS: Podiatry is already on consult. Heel raiser pro boots to bilateral heels while in bed. Recommend follow up in the lymphedema clinic upon discharge. D/C unstageable guidelines D/C skin tear guidelines Continue stage 2 guideline per podiatry. Patient was referred to wound care center on monday per the ER information was given to
--- NOTE | 2019-08-19 07:13 | NUR ---
PHYSICAL THERAPY Screen received pt has already been evaluated by PT and is currently on caseload, thank you. Dania Demarco PT
[2019-08-19 08:00] VITALS: BP 104/55
--- NOTE | 2019-08-19 08:20 | NUR ---
PHYSICAL THERAPY Patient seen this am 1:1 for therapy visit and was supine in bed upon therapist arrival. Patient identified by name / as patient attendant was present for observation only during DOCTOR'S ASSISTANT visit. Patient voices no new c/o's and transfers supine to sit EOB, MIN A with continuous use of O2-2L via NC. Patient performed sit to stand transfer CGA, completieng SPT to [facility], use of wh walker, CGA. Patient needed v/c for improved walker / step sequence safety, then ambulated 15'x 1 around bed to bedside chair, [facility], wh walker, demonstrating "waddling" gait pattern, decreased stride and slow mia. Patient returned to bedside chair and remained semi reclined with B LE's elevated secondary to increased B LE edema / eric wraps. Patient instructed to continue with B ankle pumps PRN while LE's elevated and remained with call light, tray table, telephone and body alarm for safety. Will continue per POC as tolerated, total treatment time 17 minutes. Rick Dickey, DOCTOR'S ASSISTANT
--- NOTE | 2019-08-19 09:03 | NUR ---
Dr. Kapoor notified of wound care recommendations.
--- NOTE | 2019-08-19 11:00 | NUR ---
Occupational Therapy evaluation completed on 4 with full eval to follow. Precautions include fall risk, wheeled walker use, BLE edema, IV UE, oxygen use@ 1 lpm, moderate complexity level 15305. Recommend OT per pOC and SNF, but patient insists upon d/c to home.Then recommend home health OT,PT,SN upon d/c. Thank you. Shai Pacheco OTR/l
--- NOTE | 2019-08-19 11:09 | NUR ---
Nutritional Support Services Note: Pt is eating well. 75-100% of all meals. Wound to right centeno and left toe- pt states she hit a wooden platform. Encouraged continued good intake of meals. Encouraged adequate protein to promote healing. No other nutrition intervention needed at this time. Will follow as needed. Martha Lake Rdn Ld
--- NOTE | 2019-08-19 11:28 | NUR ---
Nursing screen received and Occupational Therapy referral received. Thank you. Taylor Pacheco OTR/l
[2019-08-19 12:00] VITALS: BP 121/68
--- NOTE | 2019-08-19 12:09 | NUR ---
Conductor Orchestra in to talk to patient. Patient states lives at HOME with ALONE WITH DAUGHTER HELPING HER DAILY. There are NO steps in the home. Physician: JULES [facility]acy: [facility] Home health services: NONE Patient's level of ADLs: MINIMAL ASSIST Patient has working utilities: YES DME: WALKER, OXYGEN [facility]ROUGH [employer] Follow-up physician's appointment after d/c: WILL BE MADE BY HOSPITALIST NURSE DIRECTOR ON DISCHARGE Does patient want to access PORTAL?: NO Discharge plan PT LIVES AT HOME ALONE AND IS MOSTLY INDEPENDENT IN HER CARE. STATES HER DAUGHTER DOES HELP HER OUT IF SHE NEEDS IT. LAST TIME PT WAS HERE SHE WAS SENT HOME WITH [facility] BUT WHEN THEY SHOWED UP SHE REFUSED IT. TALKED TO PT AT LENGTH ABOUT HOME HEALTH AND SKILLED STAY DUE TO READMISSION BUT PT DECLINES BOTH, AND WANTS TO RETURN HOME ON DISCHARGE. WILL CONTINUE TO FOLLOW. STATES SHE WILL HAVE A RIDE HOME. TAHIR JACKSON
--- NOTE | 2019-08-19 12:14 | NUR ---
doctor changed dressing to legs.
[2019-08-19 16:00] VITALS: BP 103/70
[2019-08-19 20:00] VITALS: BP 108/50
[2019-08-20] VITALS: BP 100/68
--- NOTE | 2019-08-20 01:48 | NUR ---
MEDICATED WITH VISTARIL TO HELP PATIENT RELAX. UNABLE TO FALL ASLEEP. WILL CONTINUE TO MONITOR.
--- NOTE | 2019-08-20 03:14 | NUR ---
24 HR chart check completed.
--- NOTE | 2019-08-20 04:12 | NUR ---
Follow up with Dr. Collins in wound care clinic on 08/27/19 at 2:00pm, call [phone] with any concerns
[2019-08-20 06:55] LABS: BASO % 0.6 % (0.0-1.0); EOS # 0.1 10*3/uL (0.0-0.4); EOS % 1.7 % (1.0-4.0); HEMOGLOBIN 8.8 g/dl (12.0-16.0); LYMPH # 1.2 10*3/uL (1.3-4.4); LYMPH % 21.6 % (27.0-41.0); MEAN CELL VOLUME 101.7 fl (81.0-99.0); MEAN CORPUSCULAR HGB 29.8 pg (27.0-31.0); MEAN CORPUSCULAR HGB CONC 29.3 g/dl (33.0-37.0); MEAN PLATELET VOLUME 10.2 fl (9.6-12.3); MONO # 0.9 10*3/uL (0.1-1.0); MONO % 16.8 % (3.0-9.0); NEUT # 3.2 10*3/uL (2.3-7.9); NEUT % 59.1 % (47.0-73.0); PLATELET COUNT AUTOMATED 189 10*3/uL (130-400); RED BLOOD COUNT 2.95 10*6/uL (4.10-5.10); RED CELL DISTRI WIDTH 15.5 % (0-14.5); WHITE BLOOD COUNT 5.4 10*3/uL (4.8-10.8)
[2019-08-20 07:25] LABS: CREATININE 1.22 mg/dL (0.55-1.02)
--- NOTE | 2019-08-20 07:30 | NUR ---
PT RESTING IN BED. VOICES NO CONCERNS AT THIS TIME. OXYGEN 2L VIA NASAL CANNULA INTACT. RESPS EASY AND NON LABORED. NO S/S OF DISTRESS. CALL LIGHT WITHIN REACH.
[2019-08-20 08:00] VITALS: BP 98/72
[2019-08-20] MEDS ORDERED: LASIX20 MG PO (09:18)
--- NOTE | 2019-08-20 09:20 | NUR ---
PHYSICAL THERAPY Patient seen this am 1:1 for therapy visit and was on BSC upon therapist arrival. Patient presented with continuos O2-2L via NC and identified by name / . Patient transfers sit to stand CGA and ambulates with use of wh walker, [facility], 40'x 1, demonstrating slow, antalgic gait pattern. Patient reported c/o of R foot pain 4/10 following gait ex while returning to supine in bed. Patient remained in bed with call light, tray table and telephone. Will continue per POC as tolerated, total treatment time 16 minutes. OT undertaker assistant was present for observation only this session. Rick Dickey, PLANT AND EQUIPMENT WORKER
--- NOTE | 2019-08-20 10:23 | NUR ---
Shift chart check completed.
--- NOTE | 2019-08-20 10:48 | NUR ---
REFERRAL FAXED TO [facility].
--- NOTE | 2019-08-20 11:17 | NUR ---
Pt seen this date for 30 min occupational therapy treatment. Pt supine in bed upon therapists arrival with 2L 02. Pt completed bed mobility to EOB and STS with min Ax2. Verbal cues given for hand placement. Completed pivot transfer to bedside commode using ww for support. Pt reported that she has been transferring to commode at [facility]. Completed all toileting hygiene independently Completed functional mobility throughout room and back to sit at EOB with station captain. Sit to supine with max A to lift legs on to bed. Completed grooming tasks seated in bed at [facility] after set up. Pt educated in AE of gynecologist and leg flight control manager. Pt stated that she had used AE at home. Continue with OT POC. PEPE Colvin/Chelsy
--- NOTE | 2019-08-20 11:22 | NUR ---
CALLED PTS DAUGHTER TO ARRANGE FOR D/C TRANSPORTATION. DAUGHTER STATED SHE DID NOT WANT TO TAKE HER MOM HOME BECAUSE SHE CANT TAKE CARE OF HER SELF. DAUGHTER WANTS HER TO GO TO SKILLED FACILITY. DAUGHTER SPOKE WITH JERED WHO IS NOW AGREEING FOR SNF PLACEMENT. STATED THEY WANT HER TO GO TO [facility]. DR VICENTE NOTIFIED ALONG WITH FUR BLOWING MACHINE ATTENDANT.
--- NOTE | 2019-08-20 11:41 | NUR ---
Patients daughter refusing to take patient home stating she is unable to care for herself at home. patient is now agreeable to snf placement. D[facility] and knows it is out of network, daughter agreed to pay out of network copay. Contacted facility and faxed referral. Once reviewed, if accepted they will start precert. Will have to wait for auth.
--- NOTE | 2019-08-20 11:45 | NUR ---
DAUGHTER IS REQUESTING PT GO TO [facility]. SHE IS AWARE IT IS OUT OF NETWORK WITH HER INSURANCE AND SHE WILL HAVE TO PAY 30% COPAY. DAUGHTER IS OK WITH THAT AND STATES SHE CAN PAY. REFERRAL FAXED BY ACID OPERATOR FOR REVIEW. THEY WILL START PRECERT SOON IF PT IS ACCEPTED. ANISH HOSPITALIST NURSE DIRECTOR INFORMED THAT PT IS NOW REQUESTING A SKILLED PLACEMENT.
[2019-08-20 12:00] VITALS: BP 131/86
--- NOTE | 2019-08-20 12:30 | NUR ---
PODIATRY INTO SEE PT. LEG DRESSINGS CHANGED
--- NOTE | 2019-08-20 14:39 | NUR ---
PHYSICAL THERAPY CO-SIGN I approve of the Physical Therapy notes written above Dania Demarco PT
--- NOTE | 2019-08-20 15:35 | NUR ---
OCCUPATIONAL THERAPY CO-SIGN I approve of the Occupational Therapy notes written above. YAN RODRIGUEZ OTR/Chelsy
[2019-08-20 16:00] VITALS: BP 133/76
[2019-08-20 20:00] VITALS: BP 102/54
[2019-08-21] VITALS: BP 103/49
--- NOTE | 2019-08-21 01:01 | NUR ---
VISTARIL ADMINISTERED AT THIS TIME.
--- NOTE | 2019-08-21 02:00 | NUR ---
PT ASLEEP AT THIS TIME. WILL CONTINUE TO MONITOR.
[2019-08-21 06:44] LABS: CREATININE 1.1 mg/dL (0.55-1.02); POTASSIUM 3.9 mmol/L (3.5-5.1)
[2019-08-21 08:00] VITALS: BP 140/98
[2019-08-21 12:00] VITALS: BP 105/70
[2019-08-21 16:00] VITALS: BP 101/57
[2019-08-21 20:00] VITALS: BP 102/51
[2019-08-22] VITALS (8 sets, daily range): BP systolic 90–109; BP diastolic 41–66
--- NOTE | 2019-08-22 01:37 | NUR ---
TYLENOL GIVEN AT THIS TIME FOR C/O HEEL PAIN. PATIENT REPOSITIONED. CALL LIGHT IN REACH.
[2019-08-22 07:26] LABS: CREATININE 1.08 mg/dL (0.55-1.02); POTASSIUM 3.9 mmol/L (3.5-5.1)
--- NOTE | 2019-08-22 08:58 | NUR ---
PHYSICAL THERAPY IN TO SEE PT AT THIS TIME. WILL RETURN TO ASSESS AND GIVE MEDICATIONS.
--- NOTE | 2019-08-22 09:12 | NUR ---
Sonja, franchise sales representative from [facility] is stating patient is out of network. She has a 10,000 deductable that only $350.00 has been met. She also has a 10,000 out of pocket that 3,300 has been met; after both of those are met, patient is responsible for 35% of the entire bill. Also, both the deductable and the out of pocket will reset on August 28 2019 which will cost more for the patient. Sonja will be calling the daughter and explaining to her then will get back to me.
--- NOTE | 2019-08-22 09:27 | NUR ---
Pt was seen in OT x 25 mintes beginning with supine to sit at edge of bed with Min A especially to bring legs over bed edge. Transfer bed to bedside commode with CGA due to hx of falls. With toileting, required set up & CGA when standing with toilet hygiene. Performed fxl mobility to bedside chair with CGA for safety reasons. SBA to don a robe especially bringing robe around backside. Pt donned pants with CGA when pulling pants over hips. Educated patient with adaptive equipment to enhance LB dsg & bed mobility (leg plant maintenance technician, LHSH, hose inspector and patcher). Pt has a good concept of AE as pt reported that " had all of those things". Call light within reach & O2 in place. Continue with OT POC. Carolyne TADEO
--- NOTE | 2019-08-22 09:29 | NUR ---
PHYSICAL THERAPY Patient seen this am 1;1 for therapy visit and was finishing breakfast in bed upon therapist arrival. Patient identified by name / and presented with continuous O2-2L via NC. Patient was very pleasant this morning while transfering supine to sit EOB, MIN A secondary to increased B LE edema. Patient reports no c/o's pain this session and needed a minute or so to collect herself before transfering sit to stand, MIN/CGA, demonstrating very slow initial rise. Patient completed SPT to BSC, use of wh walker standing support, CGA, demonstrating increased difficulty advancing B LE's. Patient needed several v/c's for safe step sequence with improved weight shift complete safe transfer. After toileting, patient ambulated 15'x 1 around bed to bedside chair, wh walker, CGA, demonstrating very slow, "waddling" gait pattern, with increased fatigue. Patient is very deconditioned and would benefit from SNF to increase LE strength / ROM, improve standing balance / gait to return to PLOF. Patient remained in bedside chair with call light, tray table, telephone and body alarm for safety. Simon continue per POC as tolerated, total treatment time 16 minutes. Rick Dickey, LAPPER
--- NOTE | 2019-08-22 10:27 | NUR ---
[facility] stating daughter has agreed to pay copay amount. Updated clinicals faxed for precert. waiting for auth.
--- NOTE | 2019-08-22 13:12 | NUR ---
Patients daughter called and stated she would now like to see if the [facility] is in network. Contacted [facility], waiting for response. Also faxed referral to [place] network facility [facility] to review. Waiting on response from both facilities.
--- NOTE | 2019-08-22 13:39 | NUR ---
PT WILL RETURN TO [facility] TODAY. WILL CONTINUE TO FOLLOW.
--- NOTE | 2019-08-22 15:45 | NUR ---
SPOKE WITH DR VICENTE REGARDING PT MANUAL BP OF 92/50. PT HEART RATE IS 80S-90S RANGE. PT IS DUE TO HAVE METOPROLOL AT 1600. NEW ORDERS RECEIVED TO HOLD MEDICATION AT THIS TIME AND TO MONITOR HEART RATE. WILL HOLD AND NOTIFY PATIENT.
[2019-08-23] VITALS: BP 105/44
--- NOTE | 2019-08-23 00:35 | NUR ---
SPOKE TO REGARDING PATIENT'S 0000 DOSE OF SCHEDULED METOPROLOL. DISCUSSED BP 105/44 AND HR IN THE 80S PER CM. ALSO DISCUSSED EARLIER AFTERNOON DOSE HELD DUE TO BP 92/50. INSTRUCTED TO GIVE SCHEDULED DOSE ORDERED. ALSO INSTRUCTED TO RECHECK BP 1 HR FOLLOWING ADMINISTRATION.
[2019-08-23 01:35] VITALS: BP 129/76
--- NOTE | 2019-08-23 02:05 | NUR ---
PT REQUESTED AND RECEIVED PO VISTARIL FOR C/O SLEEPLESSNESS AND ANXIETY. WILL MONITOR EFFECTIVENESS. CALL LIGHT IN REACH.
--- NOTE | 2019-08-23 03:40 | NUR ---
EARLIER MEDICATION APPEARS EFFECTIVE. PT ASLEEP IN BED. RESPIRATIONS EASY. NO S/S OF DISTRESS NOTED. WILL MONITOR. CALL LIGHT IN REACH. BED ALARM INTACT.
[2019-08-23 06:29] LABS: BASO % 0.8 % (0.0-1.0); EOS # 0.1 10*3/uL (0.0-0.4); EOS % 1.4 % (1.0-4.0); HEMOGLOBIN 8.8 g/dl (12.0-16.0); MEAN CELL VOLUME 102.4 fl (81.0-99.0); MEAN CORPUSCULAR HGB CONC 29.3 g/dl (33.0-37.0); MONO # 0.9 10*3/uL (0.1-1.0); MONO % 17.6 % (3.0-9.0); PLATELET COUNT AUTOMATED 176 10*3/uL (130-400); RED BLOOD COUNT 2.93 10*6/uL (4.10-5.10); RED CELL DISTRI WIDTH 15.3 % (0-14.5)
[2019-08-23 06:48] LABS: BUN 32 mg/dl (7-24); CHLORIDE 102 mmol/L (98-107); CREATININE 1.02 mg/dL (0.55-1.02); POTASSIUM 4.2 mmol/L (3.5-5.1); SODIUM 141 mmol/L (136-145)
--- NOTE | 2019-08-23 07:38 | NUR ---
[facility] and [facility] are both out of network with patients insurance. Daughter agreeable to pay all copays for rehab suites. Patient accepted to [facility], caitlin started, waiting on auth.
--- NOTE | 2019-08-23 07:51 | NUR ---
ARRIVED ON SHIFT, INTRODUCED TO PATIENT, REPORTED WHEN SHE GETS UP HER RIGHT KNEE JUMPS OUT OF PLACE, DWIGHT STARTED YESTERDAY. WHITE BOARD UPDATED.
--- NOTE | 2019-08-23 07:54 | NUR ---
CALL PLACED TO HOSPITALIST LINE, SPOKE TO DR. VICENTE, ADVISED OF PATIENTS C/O KNEE GOING OUT WELL BP 104/41, WITH METOPROLOL DUE AT 0800. NO ORDERS AT THIS TIME.
--- NOTE | 2019-08-23 07:57 | NUR ---
Shift chart check completed.
[2019-08-23 08:00] VITALS: BP 104/40
--- NOTE | 2019-08-23 08:05 | NUR ---
PHYSICAL THERAPY Patient seen this am 1:1 for therapy visit and was supine in bed upon therapist arrival. Patient identified by name / and reports bouts of R knee pain / buckling every once in awhile starting last evening. Patient presented with continuos O2=2L via NC and transfers supine to sit EOB with MIN A x 1. Patient performed sit to stand transfer without c/o, CGA x 1, completieng SPT to [facility], CGA, with use of wh walker standing support. Patient c/o of increased R knee pain while sitting on BSC with R LE dangling off chair secondary to elevated BSC height. Patient voiced sudden c/o of R knee patella "popping" sound which therapist heard as well as patient reports instant pain relief. Patient transfers sit to stand CGA, ambulating 20'x 1 to bedside chair, CGA, wh walker, demonstrating slow mia, decreased stride and "waddling" gait pattern. Patient remained in bedside without further c/o with call light, tray table, telephone and body alarm for safety. Will continue per POC as tolerated, total treatment time 14 minutes. Rick Dickey, GUIDE DOG MOBILITY INSTRUCTOR
--- NOTE | 2019-08-23 08:07 | NUR ---
OT NOTE Pt was seen this A.M. 1:1 for 18 minute OT session. Upon arrival pt was supine in bed. Pt identified by name and and had complaints of "my R knee keeps jumping out of place when I stand." Pt presented to therapy with continuous 2L-O2 via NC which she remained on throughout the entire session. Pt transferred supine to sit EOB with Angie for assist with LLE due to being unable to self lift. Sit to stand completed from bed level with CGA and use of w/w for UE support. Standing pivot transfer completed from the EOB to the bedside commode with CGA and use of w/w. Pt transferred on to the bedside commode with CGA. Clothing management completed with CGA and toilet hygiene completed with supervision while seated. While sitting on the bedside commode therapist did note that pt's R knee "clicked" twice when going into extension. Functional mobility was then completed to the recliner with CGA and use of w/w. There she was left with call light in hand, tray table in place, and body alarm activated for safety. Continue with rec D/C plan to SNF. PEPE Conner/Chelsy
--- NOTE | 2019-08-23 08:34 | NUR ---
SPOKE WITH MIRANDA MORFIN, ADVISED TO GIVE METOPROLOL.
[2019-08-23 12:00] VITALS: BP 118/53
--- NOTE | 2019-08-23 12:27 | NUR ---
WAITING ON AUTH FOR REHAB SUITES. WILL CONTINUE TO FOLLOW.
--- NOTE | 2019-08-23 15:13 | NUR ---
Still waiting for insurance precert for patient to go to rehab suites.
[2019-08-23 16:00] VITALS: BP 95/72
--- NOTE | 2019-08-23 16:38 | NUR ---
PHYSICAL THERAPY CO-SIGN I approve of the Phyical Therapy notes written above. Dania Demarco PT
--- NOTE | 2019-08-23 16:40 | NUR ---
OCCUPATIONAL THERAPY CO-SIGN I approve of the Occupational Therapy notes written above. YAN RODRIGUEZ OTR/Chelsy
[2019-08-23 20:00] VITALS: BP 125/90
[2019-08-24] VITALS: BP 106/41
[2019-08-24 00:25] VITALS: BP 101/40
[2019-08-24 12:00] VITALS: BP 106/60
[2019-08-24 16:00] VITALS: BP 100/46; BP 78/42
--- NOTE | 2019-08-24 16:00 | NUR ---
HELD LOPRESSOR FOR BLOOD PRESSURE 100/46 MANUALLY.
[2019-08-24 20:00] VITALS: BP 95/43
[2019-08-25] VITALS: BP 113/61
--- NOTE | 2019-08-25 07:10 | NUR ---
IN TO SEE PT. PT HAS NO COMPLAINTS AT THIS TIME. ASSESSMENT COMPLETE. RESPIRATIONS EASY AND REGULAR. CALL LIGHT WITHIN REACH. WILL CONTINUE TO MONITOR.
[2019-08-25 08:00] VITALS: BP 126/55
[2019-08-25 12:00] VITALS: BP 108/65
--- NOTE | 2019-08-25 15:28 | NUR ---
PT RESTING IN BED WITH NO COMPLAINTS AT THIS TIME. RESPIRATIONS EASY AND REGULAR. FAMILY AT BEDSIDE VISITING WITH PATIENT.
[2019-08-25 16:00] VITALS: BP 123/55
[2019-08-25 20:00] VITALS: BP 105/43
--- NOTE | 2019-08-25 20:04 | NUR ---
ASSESSMENT COMPLETE AT THIS TIME. PATIENT ALERT/ORIENTED X3. DENIES PAIN, NONLABORED RESPIRATIONS ON 2L NC. ALL NEEDS MET. CALL LIGHT WITHIN REACH, BED ALARM MAINTAINED FOR SAFETY.
--- NOTE | 2019-08-25 21:56 | NUR ---
PATIENT ASSISTED TO BEDSIDE COMMODE +1 ASSIST.
[2019-08-26] VITALS: BP 93/44
--- NOTE | 2019-08-26 02:38 | NUR ---
vistaril given per pt request of insomnia. call light within reach.
[2019-08-26 06:06] LABS: BASO % 0.6 % (0.0-1.0); EOS # 0.1 10*3/uL (0.0-0.4); EOS % 1.4 % (1.0-4.0); HEMATOCRIT 29.6 % (37.0-47.0); HEMOGLOBIN 8.7 g/dl (12.0-16.0); MEAN CELL VOLUME 101.4 fl (81.0-99.0); MEAN CORPUSCULAR HGB 29.8 pg (27.0-31.0); MEAN CORPUSCULAR HGB CONC 29.4 g/dl (33.0-37.0); MEAN PLATELET VOLUME 9.7 fl (9.6-12.3); MONO # 0.9 10*3/uL (0.1-1.0); MONO % 17.2 % (3.0-9.0); NEUT # 3.2 10*3/uL (2.3-7.9); NEUT % 61.6 % (47.0-73.0); PLATELET COUNT AUTOMATED 197 10*3/uL (130-400); RED BLOOD COUNT 2.92 10*6/uL (4.10-5.10); RED CELL DISTRI WIDTH 15.9 % (0-14.5); WHITE BLOOD COUNT 5.1 10*3/uL (4.8-10.8)
[2019-08-26 06:35] LABS: BUN 36 mg/dl (7-24); CHLORIDE 104 mmol/L (98-107); POTASSIUM 4.4 mmol/L (3.5-5.1); SODIUM 142 mmol/L (136-145)
[2019-08-26 06:38] LABS: CREATININE 1.04 mg/dL (0.55-1.02)
--- NOTE | 2019-08-26 06:46 | NUR ---
JERED SHAW [id number] Please refer to the physician's history and physical for past medical history, comorbid conditions, and allergies. Diagnosis: CHRONIC HEART FAILURE,ATRIAL FIBRILLATION Jp Score: 18,AT RISK WOUND DESCRIPTIONS: Wound Number: 1 Location of the wound: right lower extremity lateral Type of wound: traumatic Thickness: Full Size: 1.8cm x 1.0cm x 0.2cm Tunneling: none Undermining: none Sinus Tract: none Presence of Exudate: Serous sanguineous Amount: Light Color: Yellow, red Odor: None Periwound Skin Appearance: Erythema Wound edges: approximated Pain (associated with wound): tender to touch How does patient state this happened? pt stated she hit on wood platform that was made by her son Wound Number: 3 Location of the wound: left great toe Type of wound: stage 2 Thickness: Partial Size: 1.3cm x 0.9cm x <0.1cm Tunneling: none Undermining: none Sinus Tract: none Presence of Exudate: Serosanguineous Amount: Light Color: Red Odor: None Periwound Skin Appearance: Edema Wound edges: approximated Pain (associated with wound): tender to touch How does patient state this happened? pt stated the blister just formed and open up about one week ago Wound Number: 2 & 4 Location of the wound: right lower extremity medial and anterior Type of wound: Traumatic Thickness: Partial Size: 0.9cm x 5.5cm x 0.1cm Tunneling: none Undermining: none Sinus Tract: none Presence of Exudate: Serosanguineous Amount: Light Color: Red, brown Odor: None Periwound Skin Appearance: Erythema, edema Wound edges: approximated Pain (associated with wound): none to time of assessment How does patient state this happened? pt stated she hit on wood platform that was made by her son Surface the patient is resting on: Isoflex SKIN PREVENTION RECOMMENDATION: 1. Pressure redistribution support surface as appropriate 2. Elevate heels 3. Remove boots/TEDS every shift and reapply 4. Head of bed 30 degrees as tolerated 5. Assess nutrition and hydration 6. Manage moisture 7. Avoid the use of containment devices while in bed 8. Use absorptive products on surfaces limit layers of linens on bed 9. Turn and reposition every 1-2 hours in bed and every 1 hour in chair as tolerated 10. Weight shifts every 15 minutes while up in chair 11. Offloading with pillows or device to keep heels elevated off bed 12. Monitor skin at least every shift 13. Inspect under medical devices twice a day WOUND TREATMENT RECOMMENDATIONS: Podiatry is already on consult. Continue Heel raiser pro boots to bilateral heels while in bed. Recommend follow up in the lymphedema clinic upon discharge. Continue stage 2 guideline per podiatry. Follow up in the wound care center 08/27/19 at 2:00pm with Dr. Collins
[2019-08-26 08:00] VITALS: BP 118/57
--- NOTE | 2019-08-26 08:40 | NUR ---
Dr. Sanchez notified of wound care recommendations.
--- NOTE | 2019-08-26 09:55 | NUR ---
OT NOTE Pt was seen this A.M. 1:1 for 15 minute OT session. Upon arrival pt was sitting upright in the recliner. Pt identified by name and and had complaints of 6/10 R ankle pain. Pt presented to therapy with continuous 2L-O2 via NC which she remained on throughout the entire session. While seated pt donned B socks with SBA, educated pt on compensatory techniques so she was not forward flexed increasing risk of SOB. Pt completed sit to stand transfer from chair level with modA and use of w/w for UE support. Educated pt on techniques for increased I in sit to stand from low surface, pt had fair carry over. Functional mobility was then completed to the bathroom and back with CGA and use of w/w for UE support. Challenged pt's static standing tolerance needed for increased I in self care tasks and functional transfers. Pt was able to tolerate aprox 3 minutes at a time before sitting due to fatigue. Pt was left sitting upright in the recliner with call light in hand, tray table in place, and body alarm activated for safety. Continue with rec D/C plan to SNF. AARON Conner
--- NOTE | 2019-08-26 10:32 | NUR ---
PHYSICAL THERAPY TREATMENT TIME: 09:50 AM - 10:10 AM Patient presented to therapy in sitting position with 2 liters of spO2 VIA NASAL CANULA and report of pain in the ankles with walking. Patient was identified by name and on wristband. Patient gives informed consent for treatment. Patient transferred sit to stand out of bedside chair with MOD A X 2 and verbal cues for pushing off armrests of chair with hands. Patient ambulated 50' x 1 with Wh Walker and CGA X 2 and then transferred back to bedside chair with CGA X 2. Patient then performed seated bilateral LE ther ex 2 x 10 reps each including LAQs, marches and heel/toe raises for strengthening in order to improve patient's functional mobility. Patient was left in bedside chair with call light within reach, chair alarm tested and attached to patient and tray table near patient. Patient was 1:1 with this TEACHER ADVENTURE EDUCATION for 20 minutes total. JOHANNA HANSEN TEACHER ADVENTURE EDUCATION
[2019-08-26 12:00] VITALS: BP 124/70
--- NOTE | 2019-08-26 12:14 | NUR ---
Spoke with daughter who was asking why the insurance has still not given authorization. I explained they are closed over the weekends but I faxed updated clinicals and therapy notes to continue with precert. The daughter stated she was also going to call the insurance company and encourage them to give auth. Still waiting for auth
--- NOTE | 2019-08-26 13:56 | NUR ---
PHYSICAL THERAPY Patient was approached for afternoon therapy treatment and patient declined treatment due to being up in a chair all day long and not feeling like getting back up again. Will check back at a later date. JOHANNA HANSEN PASTORAL MINISTRIES PROFESSOR
[2019-08-26 16:00] VITALS: BP 101/51
--- NOTE | 2019-08-26 16:00 | NUR ---
NOTIFIED OF LOW BP
[2019-08-26 20:40] VITALS: BP 100/53
[2019-08-27] VITALS: BP 96/44
--- NOTE | 2019-08-27 00:30 | NUR ---
RESTING IN BED WITH NO DISTRESS NOTED. RESPIRATIONS EASY. LUNGS DIMINISHED. PULSE OX 98% 2L. BLE EDEMATOUS WITH YOUSUF WRAPS IN PLACE. CALL LIGHT WITHIN REACH. NO VOICED COMPLAINTS. BED ALARM MAINRTAINED FOR SAFETY
--- NOTE | 2019-08-27 02:00 | NUR ---
24 HR chart check completed.
--- NOTE | 2019-08-27 04:17 | NUR ---
Upon discharge recommend patient to follow up for wound care in outpatient setting continue current wound care orders at discharging facility.
--- NOTE | 2019-08-27 06:00 | NUR ---
RESTED THROUGHOUT NIGHT WITH NO DISTRESS NOTED. RESPIRATIONS EASY. CALL LIGHT WITHIN REACH. NO VOICED COMPLAINTS THIS SHIFT
[2019-08-27 08:00] VITALS: BP 104/42
[2019-08-27 08:01] VITALS: BP 108/40
--- NOTE | 2019-08-27 09:04 | NUR ---
PHYSICAL THERAPY TREATMENT TIME: 08:45 AM - 09:05 AM Patient presented to therapy in supine with head of bed elevated and 2 liters of spO2 VIA NASAL CANULA. Patient complains of LBP, HEEL PAIN , and L shoulder pain. Patient was identified by name and on wristband. Patient gives informed consent for treatment. Patient performed supine to sitting at EOB transfer with MIN A X 1, mostly for moving LEs out over EOB. Patient sat on EOB with SBA. Patient performed sit to stand from EOB with MIN A X 1. Patient ambulated with Walker and CGA X 2 for 30' x 1 with no LOB and complaint of increased pain in low back and heels. Patient performed transfer into bedside chair with CGA X 1 with verbal cues for putting hands back on armrests of chair. Patient was left in sitting position with LEs elevated, call light within reach and chair alarm tested and attached to patient. Patient was 1:1 with this SALES LEADER for 20 minutes total. JOHANNA HANSEN SALES LEADER
--- NOTE | 2019-08-27 09:05 | NUR ---
OT NOTE Pt was seen this A.M. 1:1 for 20 minute OT session. Upon arrival pt was supine in bed. Pt identified by name and and had complaints of R heel pain and low back pain which she did not rate on 0-10 pain scale. Pt presented to therapy with continuous 2L-O2 via NC which she remained on throughout the entire session. Pt transferred supine to sit EOB with modA for assist with BLE management. While sitting EOB pt donned B socks with SBA. Sit to stand completed from bed level with Angie and use of w/w for UE support followed by functional mobility into the bathroom with CGA and use of w/w. Throughout pt was educated on walker safety due to staying unsafe distance from the walker and poor safety with turning. Pt had fair carry over. There she transferred on to standard commode with Angie and use of grab bar for UE support and off with modA x 2 and use of grab bar for UE support. Clothing management completed with CGA and toilet hygiene completed with SBA for safety. She then stood sink side while washing her hands with Angie due to poor safety awareness and leaning against the sink. Functional mobility completed back to the recliner with CGA and use of w/w, pt required two standing rest breaks throughout due to fatigue. Pt was left sitting upright in the recliner with call light in hand, tray table in place, and phone in reach. Continue with rec D/C plan to SNF. AARON Conner
[2019-08-27 12:00] VITALS: BP 118/64
[2019-08-27 16:00] VITALS: BP 113/46
[2019-08-27 20:00] VITALS: BP 101/41
--- NOTE | 2019-08-27 23:53 | NUR ---
DR STRANGE AWARE OF PATIENT'S HEART RATE AND BLOOD PRESSURE. STATES TO HOLD SCHEDULED LOPRESSOR
[2019-08-28] VITALS: BP 117/45
--- NOTE | 2019-08-28 01:02 | NUR ---
MEDICATED WITH PRN VISTARIL FOR C/O ANXIOUSNESS. WILL MONITOR
--- NOTE | 2019-08-28 01:30 | NUR ---
24 HR chart check completed.
[2019-08-28 04:00] VITALS: BP 108/52
[2019-08-28 08:00] VITALS: BP 136/60
--- NOTE | 2019-08-28 08:58 | NUR ---
PT RETING IN BED, EATING BREAKFAST. NO DISTRESS NOTED. WILL MONITOR
--- NOTE | 2019-08-28 10:45 | NUR ---
CALLED AND SPOKE WITH DR STONE AND DR OLMEDO REGARDING PT GETTING IMDUR AND LOPRESSOR , AND PT VITALS NEW ORDERS RECIEVED
--- NOTE | 2019-08-28 10:56 | NUR ---
PHYSICAL THERAPY TREATMENT TIME: 09:10 AM - 09:30 AM Patient presented to therapy in supine with 2 liters of spO2 via nasal canula. Patient has no complaints. Patient gives informed consent for treatment. Patient was idenified by name and on wristband. Patient performed supine to sitting at EOB with MIN A X 1 for moving LEs out over EOB. Patient scooted to EOB with SBA. Patient sat on EOB with with SBA. Patient sit to stand from EOB with SBA. Patient ambulated with Wh Walker and Close Supervision for 40' x 1 and no LOB or SOB noted with 2 liters of spO2 VIA NASAL CANULA. Patient sat on EOB for rest break with SBA. Patient then transferred sit to stand again with SBA from EOB, then transferred to bedside commode with SBA. Patient sit to stand from Bedside commode with SBA. Patient transferred back to supine in bed with MIN A X 1. Patient required MAX A X 2 to move patient up to head of bed with draw sheet. Patient was left in supine with head of bed elevated, call light within reach and bed alarm activated. Patient was 1:1 with this KENNEL ASSISTANT for 20 minutes total. JOHANNA HANSEN KENNEL ASSISTANT
[2019-08-28 12:00] VITALS: BP 140/67
[2019-08-28 16:00] VITALS: BP 137/72
[2019-08-28 20:00] VITALS: BP 110/50
[2019-08-29] VITALS: BP 100/48
--- NOTE | 2019-08-29 01:30 | NUR ---
24 HR chart check completed.
--- NOTE | 2019-08-29 04:00 | NUR ---
Patient resting quietly with no c/o discomfort. Respirations easy and regular. Vital signs stable. No overt distress. SHARAD PÉREZ
[2019-08-29 06:39] LABS: BASO % 0.8 % (0.0-1.0); EOS # 0.1 10*3/uL (0.0-0.4); EOS % 1.5 % (1.0-4.0); HEMATOCRIT 30.5 % (37.0-47.0); HEMOGLOBIN 8.9 g/dl (12.0-16.0); LYMPH # 0.9 10*3/uL (1.3-4.4); LYMPH % 19.7 % (27.0-41.0); MEAN CORPUSCULAR HGB 29.8 pg (27.0-31.0); MEAN CORPUSCULAR HGB CONC 29.2 g/dl (33.0-37.0); MEAN PLATELET VOLUME 9.5 fl (9.6-12.3); MONO # 0.8 10*3/uL (0.1-1.0); MONO % 17.2 % (3.0-9.0); NEUT # 2.9 10*3/uL (2.3-7.9); NEUT % 60.6 % (47.0-73.0); PLATELET COUNT AUTOMATED 193 10*3/uL (130-400); RED BLOOD COUNT 2.99 10*6/uL (4.10-5.10); RED CELL DISTRI WIDTH 16.1 % (0-14.5); WHITE BLOOD COUNT 4.7 10*3/uL (4.8-10.8)
[2019-08-29 07:04] LABS: CREATININE 1.14 mg/dL (0.55-1.02); POTASSIUM 4.3 mmol/L (3.5-5.1)
--- NOTE | 2019-08-29 08:07 | NUR ---
AMBULANCE MECHANIC received voicemail from patients daughter Lauryn. AMBULANCE MECHANIC returned call and explained we are still waiting on the PRECERT to be obtained. FRED explained once we hear back from Sonja-EVITA we will reach out to her and arrange for the patient to go to [facility]. -FRED Marshall
--- NOTE | 2019-08-29 08:36 | NUR ---
PHYSICAL THERAPY TREATMENT TIME: 08:20 AM - 08:37 AM 17 MINUTES TOTAL Patient presented to therapy in supine with head of bed elevatedd and bed alarm activated. Patient reports 0/10 pain level. Patient gives informed consent for treatment. Patient was identified by name and on wristband. Patient is on 2 liters of spO2 VIA NASAL CANULA. Patient performed supine to sitting at EOB transfer with SBA. Patient sat on EOB unassisted. Patient performed sit to stand transfer from EOB with SBA. Patient ambulated with Wh WALKER and Close Supervision for 40' x 1 with 2 liters of spO2 and no LOB or SOB noted. Patient performed 30 seconds sit to stand test and was recorded as 7 sit to stands in 30 seconds from EOB, using UEs to push off of bed. Patient transferred back to supine in bed with MIN A X 1 FOR ASSISTING WITH LIFTING LEs UP INTO BED ONLY. Patient side stepped up to head of bed prior to transferring into supine with SBA with Wh Walker. Patient was left in supine in bed with head of bed elevated, call light within reach and bed alarm activated. Patient was 1;1 with this SUPERVISOR SAMPLE PREPARATION for 17 minutes total. JOHANNA HANSEN TPA osupine in bed
--- NOTE | 2019-08-29 09:50 | NUR ---
Podiatry resident in and changed pt dressings to bl lower legs.
--- NOTE | 2019-08-29 10:05 | NUR ---
iv site to rt arm red and painful with flushing. IV started right antecubital with #22 angiocath after 1 attempts. The IV site was prepped with Chloraprep. Heparin lock attached. Sterile dressing applied. Patient tolerated precedure well. Procedure performed according to [facility] policy & procedure.
--- NOTE | 2019-08-29 11:20 | NUR ---
Pt was seen x 24 minutes in OT beginning with transfer bedside commode to bed with close supervision due to hx of falls. Pt was able to perform toilet hygiene without difficulty. Educated pt with use of adaptive equipment to enhance ADL tasks. Provided leg mechanic sound technician use for sit to supine with instructions & pt completed instructions well. Patient had a good understanding of AE as she reported "my has alot of these things". Pt also donned pants using blending coordinator with 1 cue for correct directions. Call light within reach. Continue with OT POC. Carolyne NEGRO/Chelsy
--- NOTE | 2019-08-29 11:37 | NUR ---
Called patient's daughter Apolonia and explained to her that her mother has been in the hospital now for 12 days waiting for insurance auth. Daughter needs to make a decision to either private pay at or have patient referred to a facility in network. Daughter agreed that the insurance has been "playing games" and they need to make a decision. She stated to have the referral faxed over to [facility] who is in network. Contacted [facility] and faxed additional updates for this referral. It was originally faxed to [facility] 7 days ago for review. Waiting for [facility] to review the updates and start precert.
[2019-08-29 12:00] VITALS: BP 136/84
--- NOTE | 2019-08-29 13:44 | NUR ---
Patients daughter Apolonia called to discuss plans with patient. I told her I faxed the needed information to [facility] as insurance has requested. I also faxed her information to [facility] for review. I explained to the daughter that the patient is doing so well with physical therapy at this point, they will probably deny the patient and state she is able to go home with home health. I then informed her of [facility] private aides. Daughter is calling to discuss hiring private care at home this afternoon. Will discuss further tomorrow.
[2019-08-29 16:43] VITALS: BP 124/74
--- NOTE | 2019-08-29 16:54 | NUR ---
OCCUPATIONAL THERAPY CO-SIGN I approve of the Occupational Therapy notes written above. YAN RODRIGUEZ OTR/Chelsy
[2019-08-29 20:00] VITALS: BP 108/48
[2019-08-30] VITALS: BP 110/49
--- NOTE | 2019-08-30 01:14 | NUR ---
PT ASLEEP AT THIS TIME. NO S/S OF DISTRESS NOTED. RESPS ARE EASY AND NONLABORED. BED IS LOW, CALL LIGHT WITHIN REACH. WILL CONTINUE TO MONITOR.
--- NOTE | 2019-08-30 07:44 | NUR ---
Patient has received auth for [facility]. Patient can go today if medically stable for discharge.
[2019-08-30 08:00] VITALS: BP 94/58
--- NOTE | 2019-08-30 08:50 | NUR ---
Patient resting quietly with no c/o discomfort. Respirations easy and regular. Vital signs stable. No overt distress. SHIRA WEIR
--- NOTE | 2019-08-30 09:52 | NUR ---
Patient is discharged to [facility]. Transportation scheduled for 12 noon with [facility]. NH, nursing and daughter all notified.
--- NOTE | 2019-08-30 10:03 | NUR ---
24 HR chart check completed.
--- NOTE | 2019-08-30 12:10 | NUR ---
PT LEAVING VIA [facility] AT THIS TIME. PT STABLE PT LEAVING TO [facility] REPORT CALLED, IV TAKEN OUT, WOUNDS REDRESSED PER ME,
--- NOTE | 2019-08-30 12:57 | NUR ---
MULTIPLE ATTEMPTS TRIED TO CALL [facility] I CALLED AND WAS TOLD TO CALL 15 MINS LATER AND I CALLED LATER MULTIPLE TIMES NO ANSWER
--- NOTE | 2019-08-30 14:51 | NUR ---
PHYSICAL THERAPY CO-SIGN I approve of the Physical Therapy notes written above. Dania Demarco PT
== END 2019-08-30 12:10 | disposition other institution (70) | DRG 291 ==
LOC: ED 19:33 → 4E 21:46 → EDHOLD 21:46 → 5E 21:46 → 4E 22:04 → 5E 08-24 18:02
PROVIDERS: Emergency Medicine Emergency Medical Services; Family Medicine; Internal Medicine; ADMIT Internal Medicine
DX: I13.0 Hypertensive heart and chronic kidney disease with heart failure and stage 1 through stage 4 chronic kidney disease, or unspecified chronic kidney disease (principal); N17.0 Acute kidney failure with tubular necrosis; I50.33 Acute on chronic diastolic (congestive) heart failure; N39.0 Urinary tract infection, site not specified; E44.0 Moderate protein-calorie malnutrition; Z68.41 Body mass index [BMI] 40.0-44.9, adult; I48.11 Longstanding persistent atrial fibrillation; N18.3 Chronic kidney disease, stage 3 (moderate); R94.31 Abnormal electrocardiogram [ECG] [EKG]; R73.9 Hyperglycemia, unspecified; R00.0 Tachycardia, unspecified; D53.9 Nutritional anemia, unspecified; E03.9 Hypothyroidism, unspecified; I89.0 Lymphedema, not elsewhere classified; J44.9 Chronic obstructive pulmonary disease, unspecified; M48.00 Spinal stenosis, site unspecified; E66.01 Morbid (severe) obesity due to excess calories; G89.29 Other chronic pain; K57.90 Diverticulosis of intestine, part unspecified, without perforation or abscess without bleeding; M81.0 Age-related osteoporosis without current pathological fracture; I27.21 Secondary pulmonary arterial hypertension; E53.8 Deficiency of other specified B group vitamins; F41.9 Anxiety disorder, unspecified; K21.9 Gastro-esophageal reflux disease without esophagitis; E78.5 Hyperlipidemia, unspecified; Z96.653 Presence of artificial knee joint, bilateral; S81.811A Laceration without foreign body, right lower leg, initial encounter; I70.203 Unspecified atherosclerosis of native arteries of extremities, bilateral legs; S92.911A Unspecified fracture of right toe(s), initial encounter for closed fracture; Z96.611 Presence of right artificial shoulder joint; E55.9 Vitamin D deficiency, unspecified; W06.XXXA Fall from bed, initial encounter; Y93.89 Activity, other specified; Y92.89 Other specified places as the place of occurrence of the external cause; Y99.8 Other external cause status; Z99.81 Dependence on supplemental oxygen; Z85.3 Personal history of malignant neoplasm of breast; Z92.3 Personal history of irradiation; Z92.21 Personal history of antineoplastic chemotherapy; Z85.89 Personal history of malignant neoplasm of other organs and systems; Z90.49 Acquired absence of other specified parts of digestive tract; Z90.711 Acquired absence of uterus with remaining cervical stump; Z82.49 Family history of ischemic heart disease and other diseases of the circulatory system; Z83.3 Family history of diabetes mellitus; Z82.5 Family history of asthma and other chronic lower respiratory diseases; Z88.0 Allergy status to penicillin; Z88.8 Allergy status to other drugs, medicaments and biological substances; Z88.2 Allergy status to sulfonamides; Z88.1 Allergy status to other antibiotic agents; Z91.018 Allergy to other foods; Z79.899 Other long term (current) drug therapy

== ENCOUNTER 2019-10-27 19:28 | Inpatient (IN) | payer OTHER ==
[~2019-10-27] VITALS: Ht 165.1 cm; Wt 109.0 kg
[2019-10-27 19:33] VITALS: BP 122/61
[2019-10-27 20:23] LABS: BILIRUBIN NEGATIVE (NEGATIVE); BLOOD TRACE-INTACT (NEGATIVE); CLARITY CLEAR (CLEAR); COLOR YELLOW (YELLOW); GLUCOSE NEGATIVE (NEGATIVE); KETONE NEGATIVE (NEGATIVE); SPECIFIC GRAVITY 1.015 (1.005-1.030)
[2019-10-27 20:24] LABS: LEUKO ESTERASE TRACE (NEGATIVE); NITRITE NEGATIVE (NEGATIVE); UROBILINOGEN 0.2 E.U./dl (0.2-1.0)
[2019-10-27 20:25] LABS: BACTERIA TRACE; MUCOUS TRACE
[2019-10-27 20:55] LABS: BASO % 0.5 % (0.0-1.0); EOS % 0.4 % (1.0-4.0); HEMATOCRIT 29.2 % (37.0-47.0); HEMOGLOBIN 8.1 g/dl (12.0-16.0); LYMPH # 0.8 10*3/uL (1.3-4.4); LYMPH % 13.8 % (27.0-41.0); MEAN CELL VOLUME 99.3 fl (81.0-99.0); MEAN CORPUSCULAR HGB 27.6 pg (27.0-31.0); MEAN CORPUSCULAR HGB CONC 27.7 g/dl (33.0-37.0); MEAN PLATELET VOLUME 9.8 fl (9.6-12.3); MONO # 0.9 10*3/uL (0.1-1.0); MONO % 16.2 % (3.0-9.0); NEUT # 3.8 10*3/uL (2.3-7.9); NEUT % 68.9 % (47.0-73.0); PLATELET COUNT AUTOMATED 201 10*3/uL (130-400); RED BLOOD COUNT 2.94 10*6/uL (4.10-5.10); RED CELL DISTRI WIDTH 16.8 % (0-14.5); WHITE BLOOD COUNT 5.5 10*3/uL (4.8-10.8)
[2019-10-27 21:10] LABS: ALKALINE PHOSPHATASE 98 U/L (45-117); BUN 66 mg/dl (7-24); CHLORIDE 99 mmol/L (98-107); CREATININE 1.85 mg/dL (0.55-1.02); POTASSIUM 4.7 mmol/L (3.5-5.1); SGOT/AST 20 IU/L (3-35); SGPT/ALT 21 U/L (12-78); SODIUM 139 mmol/L (136-145); TOTAL PROTEIN 6.7 gm/dL (6.4-8.2); TROPONIN I < 0.015 ng/ml (<0.045)
--- NOTE | 2019-10-27 22:46 | NUR ---
PT NOTES LEGS WERE JUST WRAPPED YESTERDAY. DENIES OPEN WOUNDS TO LOWER EXTREMITIES. LEGS ARE COVERED AT THIS TIME. WOUND PHOTOS TAKEN OF BUTTOX.
[2019-10-27 23:45] VITALS: BP 134/50
--- NOTE | 2019-10-27 23:45 | NUR ---
A 83, admitted to , under the services of JORDAN Bowens DO with a diagnosis of CHF. Chief complaint is WEAKNESS. Patient arrived via bed from ER. Monitor applied. Initial assessment completed. Vital signs taken and recorded. JORDAN BOWENS DO notified of admission to the unit. Orders received. See assessment for past medical history, medications and allergies. Patient and/or family oriented to unit. [facility] Clothing/patient valuable form completed. INDY LAMBERT
--- NOTE | 2019-10-28 00:43 | NUR ---
PATIENT UNSURE OF MEDICATIONS AT THIS TIME. SHE STATES SHE USES THE PHARMACY HERE
--- NOTE | 2019-10-28 01:32 | NUR ---
UPDATED PATIENT ON PLAN OF CARE AND NOTIFIED HER THAT SHE IS A 2L FLUID RESTRICTION.
--- NOTE | 2019-10-28 06:49 | NUR ---
JERED SHAW [id number] Please refer to the physician's history and physical for past medical history, comorbid conditions, and allergies. Diagnosis: CHF,NYHA CLASS IV EDEMA DUE TO CHF Pj Score: 13,MODERATE RISK WOUND DESCRIPTIONS: Wound Number: 1 Location of the wound: right buttocks Type of wound: stage 3 Thickness: Full Size: 1.6cm x 0.9cm x 0.1cm Tunneling: none Undermining: none Sinus Tract: none Presence of Exudate: Serous Amount: Light Color: Red, yellow Odor: None Periwound Skin Appearance: Normal Wound edges: approximated Pain (associated with wound): none at time of assessment How does patient state this happened? pt unsure how this happened Wound Number: 2 Location of the wound: left buttocks proximal Type of wound: stage 3 Thickness: Full Size: 0.5cm x 0.5cm x 0.1cm Tunneling: none Undermining: none Sinus Tract: none Presence of Exudate: Serous Amount: Light Color: Red, yellow Odor: None Periwound Skin Appearance: Normal Wound edges: approximated Pain (associated with wound): none at time of assessment How does patient state this happened? pt unsure how this happened Wound Number: 1 Location of the wound: left buttocks distal Type of wound: stage 2 Thickness: Partial Size: 0.5cm x 0.5cm x 0.1cm Tunneling: none Undermining: none Sinus Tract: none Presence of Exudate: Serous Amount: Light Color: Red Odor: None Periwound Skin Appearance: Normal Wound edges: approximated Pain (associated with wound): none at time of assessment How does patient state this happened? pt unsure how this happened Wound Number: 4 Location of the wound: right side of back Type of wound: stage 1 Size: 3.0cm x 6.2cm x <0.1cm Tunneling: none Undermining: none Sinus Tract: none Presence of Exudate: None Amount: None Color: Red Odor: None Periwound Skin Appearance: Normal Wound edges: approximated Pain (associated with wound): none at time of assessment How does patient state this happened? pt unsure how this happened Wound Number: 5 Location of the wound: Left lower extremity medial aspect Thickness: Full Size: 0.4cm x 0.6cm x <0.1cm Tunneling: none Undermining: none Sinus Tract: none Presence of Exudate: none Amount: none Color: Red, yellow Odor: None Periwound Skin Appearance: Normal Wound edges: approximated Pain (associated with wound): none at time of assessment How does patient state this happened? pt unsure how this happened Wound Number: 6 Location of the wound: right lower extremity lateral aspect Thickness: Full Size: 2.1cm x 1.7cm x 0.1cm Tunneling: none Undermining: none Sinus Tract: none Presence of Exudate: Serousanguineous Amount: Light Color: Red, yellow, brown Odor: None Periwound Skin Appearance: Normal Wound edges: approximated Pain (associated with wound): none at time of assessment How does patient state this happened? pt unsure how this happened Left buttocks proximal red and blanchable area noted at time of assessment. No open areas noted at time of assessment. No drainage noted at time of assessment Abdominal fold and lotus area red satelitte areas noted at time of assessment. No odor noted at time of assessment. No drainage noted at time of assessment. Surface the patient is resting on: Isoflex SKIN PREVENTION RECOMMENDATION: 1. Pressure redistribution support surface as appropriate 2. Elevate heels 3. Remove boots/TEDS every shift and reapply 4. Head of bed 30 degrees as tolerated 5. Assess nutrition and hydration 6. Manage moisture 7. Avoid the use of containment devices while in bed 8. Use absorptive products on surfaces limit layers of linens on bed 9. Turn and reposition every 1-2 hours in bed and every 1 hour in chair as tolerated 10. Weight shifts every 15 minutes while up in chair 11. Offloading with pillows or device to keep heels elevated off bed 12. Monitor skin at least every shift 13. Inspect under medical devices twice a day WOUND TREATMENT RECOMMENDATIONS: Wheelchair cushion when oob Heel raiser pro boots to bilateral feet while in bed Stage 3 guidelines: Cleanse right buttocks and left buttocks distal with nss and apply sureprep around the wound therahoney to wound bed and cover with optifoam sacral gentle. Stage 2 guidelines: Cleanse left buttocks proximal with nss and apply sureprep around the wound therahoney to wound bed and cover with optifoam sacral gentle. Stage 1 guidelines: Cleanse right middle side of back with nss and apply sureprep to wound bed and cover with optifoam gentle. Full thickness guidelines: Cleanse Left lower extremity medial aspect and right lower extremity lateral aspect with nss and apply betadine soaked adaptic cover with abd pad and lightly wrap with kerlix daily and prn for soiling. Consult podiatry for bilateral lower extremities. Cleanse abdominal folds and bilateral groins with soap and water pat areas dry then apply nystatin power every 8 hours Arterial studies completed on 08/19/19
--- NOTE | 2019-10-28 06:59 | NUR ---
DR. ANGELES PAGED AT THIS TIME
--- NOTE | 2019-10-28 07:27 | NUR ---
DR. TORRES NOTIFIED OF WOUNDS AND STATED IT'S OK TO PUT WOUND CARE ORDERS IN
[2019-10-28 08:00] VITALS: BP 100/63
--- NOTE | 2019-10-28 08:03 | NUR ---
PHYSICAL THERAPY Screen and eval receieved will follow thank you Dania Demarco PT
--- NOTE | 2019-10-28 09:00 | NUR ---
Paver in to talk to patient. Patient states lives at home with alone. There are 4 steps in the home. Physician: love galvan [facility]acy: [facility] Home health services: none Patient's level of ADLs: MODERATE ASSIST Patient has working utilities: all working DME: walker, home oxygen, portablet anks Follow-up physician's appointment after d/c: will be made by hospitalist nurse director upon discharge Does patient want to access PORTAL?: no Discharge plan discussed with patient, she states she lived at home alone, but was recently discharged from [facility] where she was skilled care for rehab, patient stated she was unable to care for herself at home and returned to the hospital she has a walker home oxygen and portable tanks from [facility], she was being evaluated by physical therapy and occupational therapy and was unable to move herself in the bed, discussed with her returning to a short term skilled for more therapy prior to returning home, she was in agreement with this, she stated she would like to return to the [facility], senior media planner will send referral to [facility] and if patient is not appropriate for there to the [facility], case management will follow. NENA SAMAYOA
--- NOTE | 2019-10-28 09:11 | NUR ---
Dr. Riley notified of wound care recommendations.
[2019-10-28] MEDS ORDERED: TYLENOL325 M1 PO (10:14)
--- NOTE | 2019-10-28 10:26 | NUR ---
Physical Therapy evaluation completed with full evaluation to follow. Recommend physical therapy per plan of care and rehab/snf upon discharge. Thank you for this referral. Dania Demarco PT
[2019-10-28] MEDS ORDERED: LASIX20 MG PO ×2 (10:32→10:36)
[2019-10-28] MEDS ORDERED: LASIX40 MG PO (10:33)
--- NOTE | 2019-10-28 10:53 | NUR ---
MED REC HAS BEEN COMPLETED ACCORDING TO WHAT PT WAS TAKING AT RETIREMENT; PER PATIENT THERE HAVE NOT BEEN ANY CHANGES.
--- NOTE | 2019-10-28 11:30 | NUR ---
Occupational Therapy evaluation completed on five with full evaluation to follow. Recommend occupational therapy per plan of care and SNF upon discharge. Thank you for this referral. Bethanie Novoa OTR/L
[2019-10-28 12:00] VITALS: BP 98/48
--- NOTE | 2019-10-28 12:58 | NUR ---
REGLA spoke with daughter Lauryn by phone on this date. Daughter is ok with short terms SNF Days but not LTC. Daughter reports she is unsure of what facility as they are not ok with the [facility]. Daughter will call REGLA back.
--- NOTE | 2019-10-28 15:29 | NUR ---
Nursing screen received. Patient is currently on the OT caseload. Thank you. oZey Novoa, OTR/L
[2019-10-28 16:00] VITALS: BP 116/47
[2019-10-28 20:00] VITALS: BP 111/93; BP 112/62
--- NOTE | 2019-10-28 20:40 | NUR ---
24 HR chart check completed.
--- NOTE | 2019-10-28 21:00 | NUR ---
RESTING IN BED WITH EYES CLOSED. RESPIRATIONS EASY. LUNGS DIMINISHED WITH PB RALES. PULSE OX 100% 3L. BLE EDEMA NOTED WITH DRESSINGS/WRAPS IN PLACE. CALL LIGHT WITHIN REACH. NO VOICED COMPLAINTS. BED ALARM MAINTAINED FOR SAFETY
--- NOTE | 2019-10-28 21:38 | NUR ---
MEDICATED WITH TYLENOL PER PRN ORDER FOR COMPLAINTS OF GENERALIZED ACHES/PAINS. CALL LIGHT WITHIN REACH. WILL MONITOR
--- NOTE | 2019-10-28 23:00 | NUR ---
MEDS EFFECTIVE. SLEEPING
[2019-10-29] VITALS: BP 100/62
--- NOTE | 2019-10-29 00:30 | NUR ---
SLEEPING. RESPIRATIONS EASY. VSS. CALL LIGHT WITHIN REACH. BED ALARM MAINTAINED FOR SAFETY
--- NOTE | 2019-10-29 03:00 | NUR ---
SLEEPING. RESPIRATIONS EASY. O2 IN USE. CALL LIGHT WITHIN REACH. BED ALARM MAINTAINED FOR SAFETY
--- NOTE | 2019-10-29 04:07 | NUR ---
Upon discharge recommend patient to follow up for wound care in outpatient setting continue current wound care orders at discharging facility.
--- NOTE | 2019-10-29 06:00 | NUR ---
SLEPT THROUGHOUT NIGHT WITH NO DISTRESS NOTED. RESPIRATIONS EASY. CALL LIGHT WITHIN REACH. NO VOICED COMPLAINTS THIS SHIFT
[2019-10-29 06:54] LABS: BASO % 0.2 % (0.0-1.0); EOS % 0.5 % (1.0-4.0); HEMATOCRIT 26.7 % (37.0-47.0); HEMOGLOBIN 7.5 g/dl (12.0-16.0); LYMPH # 0.9 10*3/uL (1.3-4.4); LYMPH % 20.2 % (27.0-41.0); MEAN CELL VOLUME 99.3 fl (81.0-99.0); MEAN CORPUSCULAR HGB 27.9 pg (27.0-31.0); MEAN CORPUSCULAR HGB CONC 28.1 g/dl (33.0-37.0); MEAN PLATELET VOLUME 10.3 fl (9.6-12.3); MONO # 0.8 10*3/uL (0.1-1.0); MONO % 17.3 % (3.0-9.0); NEUT # 2.7 10*3/uL (2.3-7.9); NEUT % 61.6 % (47.0-73.0); PLATELET COUNT AUTOMATED 179 10*3/uL (130-400); RED BLOOD COUNT 2.69 10*6/uL (4.10-5.10); RED CELL DISTRI WIDTH 16.9 % (0-14.5); WHITE BLOOD COUNT 4.4 10*3/uL (4.8-10.8)
[2019-10-29 07:06] LABS: CREATININE 1.5 mg/dL (0.55-1.02)
[2019-10-29 07:08] LABS: POTASSIUM 3.5 mmol/L (3.5-5.1)
[2019-10-29 08:00] VITALS: BP 136/77
--- NOTE | 2019-10-29 08:16 | NUR ---
[facility]ed all paperwork [facility] on this date and asked to start precert.
--- NOTE | 2019-10-29 08:43 | NUR ---
Dr. Reed notified of wound care recommendations.
--- NOTE | 2019-10-29 09:00 | NUR ---
case management visits with patient, she has been referred to [facility] for short term [facility] for rehab, she will require an insurance precert which was initiated today, case management/social insurance adviser will follow
--- NOTE | 2019-10-29 09:40 | NUR ---
OT NOTE Pt was seen this A.M. 1:1 for 30 minute OT session. Upon arrival pt was supine in bed. Pt identified by name and and had complaints of 6/10 "all over" pain. Pt presented to therapy with continuous 3L-O2 via NC which she remained on throughout the entire session. Requested for pt to transfer supine to sit and pt was unable to manage BLE's. Pt was then demonstrated and educated on use of leg accounting bookkeeper for BLE management and pt was still unable due to quick onset of fatigue resulting in maxA X 2 for supine to sit EOB transfer. While sitting EOB pt was demonstrated and educated on use of BLE adaptive equipment consisting of wedding florist and sock aid. Pt was able to doff B socks with use of wedding florist and Angie for assist with inital start of doffing and donned B socks with use of sock aid and Angie for assist with sequencing of sock aid. Pt then completed multiple sit to stand transfers from bed level with CGA and use of w/w for UE support. Challenged pt's static standing tolerance needed for increased I in self care tasks and functional transfers and pt was able to tolerate aprox 50-90 seconds at a time before sitting due to fatigue and pain. Standing pivot then completed from the EOB to the recliner with CGA and use of w/w. There she was left sitting upright with BLE's elevated for edema control, call light in hand, tray table in place, and phone in reach. Continue with rec D/C plan to SNF. AARON Conner
--- NOTE | 2019-10-29 09:52 | NUR ---
NOTIFIED OF CONSULT; HE STATES HE WILL SEE PATIENT AROUND 1.
--- NOTE | 2019-10-29 10:14 | NUR ---
PHYSICAL THERAPY TREATMENT TIME: 9:15 AM IN Patient presented to therapy in supine with head of bed elevated, 3 liters of spO2 VIA NASAL CANULA and bed alarm activated. Patient had heel protectors on. Patient gives informeed consent for treatment. Patient was identified by name and on wristband. BED alarm is on. Patient's O2 SAT was recorded as 100% and pulse was 108. Patient transferred supine to sitting at EOB with MAX A X 2. Patient's O2 SAT was 98% and pulse 81 upon sitting on EOB. Patient sat on EOB with SBA. Patient completed sit to stand from EOB with MIN A X 1-CGA with verbal cues for pushing off EOB with hands. Patient PERFORMED x 2 STANDING TOLERANCES at Walker with CGA for 1 min 30 seconds the 1st attempt and 40 seconds the 2nd ATTEMPT. Patient required verbal cues for upright posture, locking knees into extension and pushing down on walker with hands. Patient's O2 SATS measured as 87% AND PULSE AT 127 POST standing tolerances. This increased to 93% and pulse to 120 after 1 minute. Patient SPT into bedside chair with CGA X 2 AND verbal cues for putting hands back on armrests of chair to slow descent into chair. Patient was left in bedside chair with call light within reach O2 connected to wall outlet with 3 liters of spO2 and LEs in elevated position. Patient's call light within reach. Patient was 1:1 with this FREELANCE DESIGNER for 19 minutes total. ELIZABETH HANSEN FREELANCE DESIGNER
[2019-10-29 12:00] VITALS: BP 105/53
--- NOTE | 2019-10-29 13:52 | NUR ---
OT NOTE Pt was seen this P.M. 1:1 for second OT session consisting of 15 minutes. Upon arrival pt was sitting upright in the recliner. Pt identified by name and and had no complaints at this time. Pt completed sit to stand from chair level with Angie X 2 and use of w/w for UE support. Standing pivot was then completed from the chair to the EOB with CGA for safety. Pt then transferred back into bed sit to supine with maxA X 2. There she was left sitting upright with call light in hand, tray table in place, and bed alarm activated for safety. Continue with rec D/C plan to SNF. PEPE Conner/Chelsy
--- NOTE | 2019-10-29 14:04 | NUR ---
NOTIFIED OF [facility].
--- NOTE | 2019-10-29 14:29 | NUR ---
PHYSICAL THERAPY TREATMENT TIME: IN 1340 OUT 1355 15 MINUTES TOTAL Patient presented to therapy in sitting in bedside chair with 3 liters of spO2 VIA NASAL CANULA. Patient gives informed consent for treatment. Patient was identified by name and on wristband. Patient performed scoot forwards to front of chair witH SBA. Patient sit t ostand transfer from bedside chair with MIN A X 2. Patient SPT to EOB with CGA X 2. Patient sat on EOB and performed LAQs x 10 reps each with SBA. Patient transferred sit to supine in with MAX A X 2. Patient was left in supine in bed with head of bed elevated, call light within reach, and bed alarm activated. Patient was 1:1 with this HOUSE CLEANER for 15 minutes total. JOHANNA HANSEN HOUSE CLEANER
[2019-10-29 16:00] VITALS: BP 103/70
--- NOTE | 2019-10-29 16:00 | NUR ---
WRAPPED LOWER EXTREMITIES UP TO THIGHS PER 'S ORDER. PT TOLERATED WELL. INCREASED FLUID RESTRICTION AND NOTIFIED PATIENT. DAUGHTER SPOKE WITH . HE WANTS PATIENT TO TRANSFER TO [facility] PRIOR TO SNF PLACEMENT.
--- NOTE | 2019-10-29 18:00 | NUR ---
SPOKE WITH AND ORDER FOR EGD OBTAINED FOR THE AM. PATIENT AWARE.
[2019-10-29 20:00] VITALS: BP 98/59
--- NOTE | 2019-10-29 20:00 | NUR ---
24 HR chart check completed.
--- NOTE | 2019-10-29 21:00 | NUR ---
RESTING IN BED WITH NO ACUTE DISTRESS NOTED. RESPIRATIONS EASY. LUNGS DIMINISHED WITH PB RALES. PULSE OX 100% 3L, TITRATED TO 2L. INFREQUENT COUGH. BLE EDEMATOUS WITH DRESSINGS AND HEEL PROTECTORS IN PLACE AND FOOT OF BED ELEVATED. CALL LIGHT WITHIN REACH. NO VOICED COMPLAINTS. BED ALARM MAINTAINED FOR SAFETY
[2019-10-30] VITALS (10 sets, daily range): BP systolic 72–110; BP diastolic 39–76
--- NOTE | 2019-10-30 | NUR ---
SLEEPING. NO DISTRESS NOTED. RESPIRATIONS EASY. PULSE OX 96% 2L. VSS. CALL LIGHT WITHIN REACH. BED ALARM MAINTAINED FOR SAFETY
--- NOTE | 2019-10-30 01:15 | NUR ---
AWAKE, RESTLESS. C/O PAIN TO BLE RATING AN 8. MEDICATED WITH RESTORIL AND TYLENOL PER PRN ORDER. CALL LIGHT WITHIN REACH. WILL MONITOR
--- NOTE | 2019-10-30 02:50 | NUR ---
MEDS EFFECTIVE. SLEEPING. RESPIRATIONS EASY. CALL LIGHT WITHIN REACH
--- NOTE | 2019-10-30 06:00 | NUR ---
RESTED THROUGHOUT NIGHT. NPO STATUS MAINTAINED FOR SURGERY THIS AM
[2019-10-30 06:12] LABS: BASO % 0.4 % (0.0-1.0); EOS % 0.2 % (1.0-4.0); HEMATOCRIT 27.6 % (37.0-47.0); HEMOGLOBIN 7.9 g/dl (12.0-16.0); LYMPH % 19.8 % (27.0-41.0); MEAN CELL VOLUME 98.9 fl (81.0-99.0); MEAN CORPUSCULAR HGB 28.3 pg (27.0-31.0); MEAN CORPUSCULAR HGB CONC 28.6 g/dl (33.0-37.0); MONO # 0.7 10*3/uL (0.1-1.0); MONO % 14.5 % (3.0-9.0); NEUT # 3.3 10*3/uL (2.3-7.9); NEUT % 64.5 % (47.0-73.0); NUCLEATED RED BLOOD CELL 0.4 % (0.0-0.0); PLATELET COUNT AUTOMATED 189 10*3/uL (130-400); RED BLOOD COUNT 2.79 10*6/uL (4.10-5.10); RED CELL DISTRI WIDTH 16.9 % (0-14.5); WHITE BLOOD COUNT 5.1 10*3/uL (4.8-10.8)
[2019-10-30 06:31] LABS: ALBUMIN 2.8 gm/dl (3.1-4.5); CREATININE 1.62 mg/dL (0.55-1.02); POTASSIUM 3.8 mmol/L (3.5-5.1); TOTAL PROTEIN 6.1 gm/dL (6.4-8.2)
--- NOTE | 2019-10-30 09:07 | NUR ---
hospital exemption completed for [facility]. Patient precert started on 10/29/19, waiting for auth
--- NOTE | 2019-10-30 10:33 | NUR ---
PATIENT TAKEN DOWN TO SURGERY PER ORDER.
--- NOTE | 2019-10-30 11:00 | NUR ---
case management received a call from Eleanor from [facility], per Eleanor insurance has denied patient returning to a short term skilled [facility]. peer to peer number obtained and given to hospitalist nurse director for doctor to do peer to peer, case management will follow
--- NOTE | 2019-10-30 11:14 | NUR ---
Spoke with daughter Apolonia regarding denial for snf due to no improvement in 8 weeks. P to P number provided to hospitalist. Daughter stating the reason she cannot progress in therapy is because of the amount of fluid collecting in her body. She would like the patient to be transferred to [place] for a vascular procedure to help with patients fluid retension. Called Rupal Richard and notified hospitalists office.
--- NOTE | 2019-10-30 11:44 | NUR ---
OT NOTE Attempted to see pt this A.M. for OT session and upon arrival pt was out of the room for a medical procedure. Will check back at a later time/date and continue with POC as able. PEPE Conner/Chelsy
--- NOTE | 2019-10-30 13:34 | NUR ---
PATIENT RETURNED TO ROOM. SCHEDULED COLCHICINE ADMINISTERED AT THIS TIME. WILL CONTINUE TO MONITOR. VSS.
--- NOTE | 2019-10-30 14:05 | NUR ---
OT NOTE Pt was seen this P.M. 1:1 for 15 minute OT session. Upon arrival pt was supine in bed. Pt identified by name and and had complaints of 7/10 low back pain. Pt presented to therapy with continuous 2L-O2 via NC which she remained on throughout the entire session and presented with mild confusion following A.M. procedure. Pt transferred supine to sit EOB with maxA X 2. While sitting EOB donned B socks with maxA due to pt stating "I can't today because of my back pain." Pt then completed multiple sit to stand transfers from bed level with CGA and use of w/w for UE support. Challenged pt's static standing tolerance needed for increased I in self care tasks and functional transfers, pt was able to tolerate aprox 20-60 seconds before sitting due to back pain and fatigue. Attempted to complete other tasks and pt declined due to back pain and fatigue. Pt transferred back into bed sit to supine with maxA X 2. There she was left with call light in hand, tray table in place, and bed alarm activated for safety. Continue with rec D/C plan to SNF. PEPE Conner/Chelsy
--- NOTE | 2019-10-30 14:23 | NUR ---
PHYSICAL THERAPY TREATMENT TIME: 1:50 PM - 2:10 PM 20 MINUTES Patient presented to therapy in supine with head of bed elevated and bed alarm activated. Patient is on 2 liters of spO2 VIA NASAL CANULA. Patient gives informed consent for treatment. Patient was identified by name and on wristband. Patient is 7/10 pain level in the low back. Patient performed supine to sitting on EOB MAX A X 2. Patient sat EOB with SBA-CGA. Patient sit to stand from EOB with CGA and verbal cues for pushing off the bed with her hands. Patient stood X 2 at the Walker and CGA FOR 1 MINUTE TOTAL the 1st attempt and 20 seconds the 2nd attempt. Patient declined to ambulate. Patient transferred sit to supine in bed with MAX A X 2. Patient was left in bed with head of bed elevated, call light within reach and bed alarm activated. Patient for 2-0 minutes total. connected to wall outlet with 2 liters of O2. Patient was 1:1 with this ATTORNEY RECRUITER for 20 minutes total. JOHANNA HANSEN ATTORNEY RECRUITER
--- NOTE | 2019-10-30 20:00 | NUR ---
IN TO ASSESS PATIENT. NASAL CANNULA INTACT. PATIENT ALERT, BUT FORGETFUL. PLEASANT AND COOPERATIVE. NO COMPLAINTS AT THIS TIME. CALL LIGHT WITHIN REACH, WILL MONITOR
[2019-10-31] VITALS: BP 141/42
--- NOTE | 2019-10-31 02:08 | NUR ---
JERED SHAW [id number] Please refer to the physician's history and physical for past medical history, comorbid conditions, and allergies. Diagnosis: CHF,NYHA CLASS IV EDEMA DUE TO CHF Jp Score: 13,MODERATE RISK WOUND DESCRIPTIONS: Wound Number: 7 Location of the wound: left upper thigh Thickness: Full Size: 0.3cm x 0.4cm x <0.1cm Tunneling: none Undermining: none Sinus Tract: none Presence of Exudate: none Amount: None Color: Yellow, red Odor: None Periwound Skin Appearance: Normal Wound edges: approximated Pain (associated with wound): none at time of assessment How does patient state this happened? pt states she is unsure but may have scratch herself Surface the patient is resting on: Isoflex SKIN PREVENTION RECOMMENDATION: 1. Pressure redistribution support surface as appropriate 2. Elevate heels 3. Remove boots/TEDS every shift and reapply 4. Head of bed 30 degrees as tolerated 5. Assess nutrition and hydration 6. Manage moisture 7. Avoid the use of containment devices while in bed 8. Use absorptive products on surfaces limit layers of linens on bed 9. Turn and reposition every 1-2 hours in bed and every 1 hour in chair as tolerated 10. Weight shifts every 15 minutes while up in chair 11. Offloading with pillows or device to keep heels elevated off bed 12. Monitor skin at least every shift 13. Inspect under medical devices twice a day WOUND TREATMENT RECOMMENDATIONS: Full thickness guidelines: Cleanse left upper thigh with nss and apply sureprep around the wound therahoney to wound bed and cover with bandaid daily and prn for soiling
--- NOTE | 2019-10-31 02:14 | NUR ---
JERED SHAW [id number] Please refer to the physician's history and physical for past medical history, comorbid conditions, and allergies. Diagnosis: CHF,NYHA CLASS IV EDEMA DUE TO CHF Jp Score: 13,MODERATE RISK WOUND DESCRIPTIONS: Wound Number: 8 Location of the wound: left upper thigh Thickness: Full Size: 0.3cm x 0.4cm x <0.1cm Tunneling: none Undermining: none Sinus Tract: none Presence of Exudate: none Amount: None Color: Yellow, red Odor: None Periwound Skin Appearance: Normal Wound edges: approximated Pain (associated with wound): none at time of assessment How does patient state this happened? pt states she is unsure but may have scratch herself Surface the patient is resting on: Isoflex SKIN PREVENTION RECOMMENDATION: 1. Pressure redistribution support surface as appropriate 2. Elevate heels 3. Remove boots/TEDS every shift and reapply 4. Head of bed 30 degrees as tolerated 5. Assess nutrition and hydration 6. Manage moisture 7. Avoid the use of containment devices while in bed 8. Use absorptive products on surfaces limit layers of linens on bed 9. Turn and reposition every 1-2 hours in bed and every 1 hour in chair as tolerated 10. Weight shifts every 15 minutes while up in chair 11. Offloading with pillows or device to keep heels elevated off bed 12. Monitor skin at least every shift 13. Inspect under medical devices twice a day WOUND TREATMENT RECOMMENDATIONS: Full thickness guidelines: Cleanse left upper thigh with nss and apply sureprep around the wound therahoney to wound bed and cover with bandaid daily and prn for soiling
--- NOTE | 2019-10-31 02:18 | NUR ---
NOTIFIED DR. SALEEM OF WOUND ON THIGH FROM PATIENT SCRATCHING IT. ORDERS RECIEVED FOR FULL THICKNESS GUIDELINES
--- NOTE | 2019-10-31 02:30 | NUR ---
24 HR chart check completed.
--- NOTE | 2019-10-31 04:00 | NUR ---
PATIENT SLEEPING, NASAL CANNULA INTACT. CALL LIGHT WITHI REACH, WILL MONITOR
--- NOTE | 2019-10-31 06:17 | NUR ---
WOUNDS CHANGED ON PATIENTS BUTTOCKS AND NEW WOUND DRESSED ON LEFT UPPER THIGH
[2019-10-31 06:18] LABS: BASO % 0.5 % (0.0-1.0); EOS % 0.5 % (1.0-4.0); HEMATOCRIT 27.6 % (37.0-47.0); HEMOGLOBIN 7.9 g/dl (12.0-16.0); LYMPH # 0.9 10*3/uL (1.3-4.4); LYMPH % 20.3 % (27.0-41.0); MEAN CELL VOLUME 99.6 fl (81.0-99.0); MEAN CORPUSCULAR HGB 28.5 pg (27.0-31.0); MEAN CORPUSCULAR HGB CONC 28.6 g/dl (33.0-37.0); MONO # 0.8 10*3/uL (0.1-1.0); MONO % 18.2 % (3.0-9.0); NEUT # 2.6 10*3/uL (2.3-7.9); PLATELET COUNT AUTOMATED 188 10*3/uL (130-400); RED BLOOD COUNT 2.77 10*6/uL (4.10-5.10); RED CELL DISTRI WIDTH 16.8 % (0-14.5); WHITE BLOOD COUNT 4.4 10*3/uL (4.8-10.8)
[2019-10-31 06:46] LABS: POTASSIUM 3.1 mmol/L (3.5-5.1)
[2019-10-31 06:47] LABS: CREATININE 1.35 mg/dL (0.55-1.02)
[2019-10-31 08:03] VITALS: BP 114/46
--- NOTE | 2019-10-31 08:15 | NUR ---
PATIENT SITTING UP IN BED. NO DISTRESS NOTED. 02 IN USE VIA 2LNC. POX 99% VIA 2LNC. LUNGS DIMINISHED T/O. DENIES ANY PAIN/DISCOMFORT AT THIS TIME. BILATERAL TUBI-HIGH SPEED OPERATOR NOTED. WILL CONTINUE TO MONITOR. NO VOICED COMPLAINTS. VSS. CALL LIGHT WITHIN REACH.
--- NOTE | 2019-10-31 08:40 | NUR ---
OT NOTE Attempted to see pt this A.M. for OT session and upon arrival pt was supine in bed. Pt reported that she was not feeling well, fatigued, and sick to her stomach. Requesting to check back this P.M.. Will continue with POC as able. AARON Conner
--- NOTE | 2019-10-31 08:59 | NUR ---
PHYSICAL THERAPY TREATMENT TIME: 0840 AM Patient declined treatment due to not feeling well and being sick. Patient wants therapy to come back in the afternoon. JOHANNA HANSEN BRAND AMBASSADOR PROMOTIONAL MODEL
--- NOTE | 2019-10-31 09:02 | NUR ---
Peer to Peer successful, patient has been given auth for [facility] and is ok to go today if medically stable.
[2019-10-31] MEDS ORDERED: CEFUROXIME AXE500 MG PO (10:29)
[2019-10-31] MEDS ORDERED: XARE20MG PO (10:29)
[2019-10-31] MEDS ORDERED: Carafate1 GM/10 ML PO (10:29)
[2019-10-31] MEDS ORDERED: BUMETANIDE1 MG PO (10:29)
[2019-10-31] MEDS ORDERED: PROTONIX40 MG PO (10:30)
--- NOTE | 2019-10-31 11:45 | NUR ---
Patient is discharges to [facility] via [phone]. DC information faxed, [facility], nursing/wine steward/stewardess and family notified.
[2019-10-31 12:00] VITALS: BP 90/59
--- NOTE | 2019-10-31 12:32 | NUR ---
OT NOTE Pt was seen this P.M. 1:1 for 17 minute OT session. Upon arrival pt was supine in bed. Pt identified by name and and had no complaints at this time. Pt transferred supine to sit EOB with maxA X 2. Sit to stand completed from bed level with CGA and use of w/w for UE support. Standing pivot then completed from the EOB to the bedside commode with CGA and use of w/w for UE support. Pt transferred on/off bedside commode with CGA. Clothing management completed with Angie and toilet hygiene completed with modA. Pt was left sitting upright in the recliner with call light in hand, tray table in place, and phone in reach. Continue with rec D/C plan to SNF. PEPE Conner/Chelsy
--- NOTE | 2019-10-31 12:42 | NUR ---
PHYSICAL THERAPY TREATMENT TIME: 12:15 PM - 12:30 PM 15 MINUTES TOTAL Patient presented to therapy in supine with head of bed elevated and bed alarm on with report of feeling tired today. Patient gives informed consent for treatment. Patient was identified by name and on wristband. Patient is on 2 liters of spO2. Patient performed supine to sitting at EOB transfer with MAX A X 2. Patient sat on EOB with SBA. Patient completed sit to stand from EOB with CGA. Patient performed SPT to bedside commode with Wh Walker and CGA. Patient performed sit to stand from bedside commode with CGA. Patient SPT to bedside chair to EOB with CGA. Patient was left in SITTING in bedside chair, call light within reach and body alarm activated. Patient was 1:1 with this DISTRICT TRAFFIC CHIEF for 15 minutes. JOHANNA HANSEN DISTRICT TRAFFIC CHIEF
--- NOTE | 2019-10-31 14:30 | NUR ---
PATIENT REFUSED DISCHARGE PHOTOS.
--- NOTE | 2019-10-31 14:45 | NUR ---
AMBULANCE HERE TO TRANSPORT PATIENT TO REHAB SUITES.
--- NOTE | 2019-10-31 15:04 | NUR ---
REPORT GIVEN TO NURSE AT REHAB SUITES.
--- NOTE | 2019-11-01 07:18 | NUR ---
PHYSICAL THERAPY CO-SIGN I approve of the Physical Therapy notes written above. Dania Demarco PT
--- NOTE | 2019-11-01 12:33 | NUR ---
OCCUPATIONAL THERAPY CO-SIGN I approve of the Occupational Therapy notes written above. YAN RODRIGUEZ OTR/Chelsy
== END 2019-10-31 14:45 | disposition other institution (70) | DRG 377 ==
LOC: ED 19:28 → 5E 22:08 → EDHOLD 22:08 → 5E 22:57
PROVIDERS: Emergency Medicine; Internal Medicine; Student in an Organized Health Care Education/Training Program; ADMIT Internal Medicine
PROC: 0W3P8ZZ Control Bleeding in Gastrointestinal Tract, Via Natural or Artificial Opening Endoscopic (ICD-10-PCS; principal; 2019-10-27)
PROC: 0DB68ZX Excision of Stomach, Via Natural or Artificial Opening Endoscopic, Diagnostic (ICD-10-PCS; principal; 2019-10-27)
DX: K29.71 Gastritis, unspecified, with bleeding (principal); N17.0 Acute kidney failure with tubular necrosis; L89.323 Pressure ulcer of left buttock, stage 3; L89.313 Pressure ulcer of right buttock, stage 3; I50.43 Acute on chronic combined systolic (congestive) and diastolic (congestive) heart failure; I13.0 Hypertensive heart and chronic kidney disease with heart failure and stage 1 through stage 4 chronic kidney disease, or unspecified chronic kidney disease; E44.0 Moderate protein-calorie malnutrition; Z68.41 Body mass index [BMI] 40.0-44.9, adult; N30.00 Acute cystitis without hematuria; R79.89 Other specified abnormal findings of blood chemistry; D53.9 Nutritional anemia, unspecified; E03.9 Hypothyroidism, unspecified; M81.0 Age-related osteoporosis without current pathological fracture; F41.9 Anxiety disorder, unspecified; E53.8 Deficiency of other specified B group vitamins; E78.5 Hyperlipidemia, unspecified; I48.91 Unspecified atrial fibrillation; M10.9 Gout, unspecified; E87.6 Hypokalemia; B96.20 Unspecified Escherichia coli [E. coli] as the cause of diseases classified elsewhere; N18.3 Chronic kidney disease, stage 3 (moderate); E11.65 Type 2 diabetes mellitus with hyperglycemia; Z88.0 Allergy status to penicillin; Z88.8 Allergy status to other drugs, medicaments and biological substances; Z79.899 Other long term (current) drug therapy; Z85.3 Personal history of malignant neoplasm of breast; Z90.710 Acquired absence of both cervix and uterus; Z90.49 Acquired absence of other specified parts of digestive tract

== ENCOUNTER 2019-11-02 10:13 | Emergency (ER) | payer OTHER ==
[~2019-11-02 10:13] MED LIST changes: +BUMETANIDE1 MG PO; +CEFUROXIME AXE500 MG PO; +PROTONIX40 MG PO; +TYLENOL325 M1 PO
[2019-11-02 10:14] VITALS: BP 92/48
[2019-11-02 10:48] LABS: BASO % 0.6 % (0.0-1.0); EOS % 0.6 % (1.0-4.0); HEMATOCRIT 29.3 % (37.0-47.0); LYMPH # 0.8 10*3/uL (1.3-4.4); LYMPH % 14.9 % (27.0-41.0); MEAN CORPUSCULAR HGB 27.6 pg (27.0-31.0); MEAN CORPUSCULAR HGB CONC 27.3 g/dl (33.0-37.0); MEAN PLATELET VOLUME 9.7 fl (9.6-12.3); MONO # 0.7 10*3/uL (0.1-1.0); MONO % 12.9 % (3.0-9.0); NEUT # 3.9 10*3/uL (2.3-7.9); NEUT % 70.6 % (47.0-73.0); PLATELET COUNT AUTOMATED 185 10*3/uL (130-400); RED CELL DISTRI WIDTH 16.6 % (0-14.5); WHITE BLOOD COUNT 5.4 10*3/uL (4.8-10.8)
[2019-11-02 11:06] LABS: ALBUMIN 2.9 gm/dl (3.1-4.5); CREATININE 1.41 mg/dL (0.55-1.02); POTASSIUM 3.8 mmol/L (3.5-5.1); TOTAL PROTEIN 6.5 gm/dL (6.4-8.2); TROPONIN I 0.015 ng/ml (<0.045)
== END 2019-11-02 11:57 | disposition home or self-care (01) ==
LOC: ED 10:13
PROVIDERS: Emergency Medicine
DX: R06.00 Dyspnea, unspecified (principal); F41.9 Anxiety disorder, unspecified; I11.0 Hypertensive heart disease with heart failure; I50.9 Heart failure, unspecified; I48.91 Unspecified atrial fibrillation; J44.9 Chronic obstructive pulmonary disease, unspecified; K21.9 Gastro-esophageal reflux disease without esophagitis; M10.9 Gout, unspecified; E78.5 Hyperlipidemia, unspecified; E03.9 Hypothyroidism, unspecified; M81.0 Age-related osteoporosis without current pathological fracture; E66.01 Morbid (severe) obesity due to excess calories; Z88.8 Allergy status to other drugs, medicaments and biological substances; Z88.2 Allergy status to sulfonamides; Z79.899 Other long term (current) drug therapy; Z79.2 Long term (current) use of antibiotics

== ENCOUNTER 2019-12-12 08:55 | Inpatient (IN) | payer OTHER ==
[~2019-12-12] VITALS: Ht 165.1 cm; Wt 111.3 kg
[2019-12-12 09:00] VITALS: BP 139/68
[2019-12-12 09:36] LABS: BASO % 0.6 % (0.0-1.0); EOS % 0.2 % (1.0-4.0); HEMATOCRIT 36.3 % (37.0-47.0); LYMPH # 0.8 10*3/uL (1.3-4.4); LYMPH % 12.1 % (27.0-41.0); MEAN CELL VOLUME 102.8 fl (81.0-99.0); MEAN CORPUSCULAR HGB 28.6 pg (27.0-31.0); MEAN CORPUSCULAR HGB CONC 27.8 g/dl (33.0-37.0); MEAN PLATELET VOLUME 9.9 fl (9.6-12.3); MONO # 0.8 10*3/uL (0.1-1.0); MONO % 12.4 % (3.0-9.0); NEUT # 4.7 10*3/uL (2.3-7.9); NEUT % 74.4 % (47.0-73.0); PLATELET COUNT AUTOMATED 163 10*3/uL (130-400); RED BLOOD COUNT 3.53 10*6/uL (4.10-5.10); RED CELL DISTRI WIDTH 24.2 % (0-14.5); WHITE BLOOD COUNT 6.4 10*3/uL (4.8-10.8)
[2019-12-12 09:47] LABS: ALBUMIN 3.4 gm/dl (3.1-4.5); CREATININE 1.42 mg/dL (0.55-1.02); POTASSIUM 3.8 mmol/L (3.5-5.1); TOTAL PROTEIN 6.7 gm/dL (6.4-8.2)
[2019-12-12 10:52] LABS: BILIRUBIN NEGATIVE (NEGATIVE); BLOOD NEGATIVE (NEGATIVE); CLARITY CLEAR (CLEAR); COLOR YELLOW (YELLOW); EPITHELIAL CELLS 0-2; GLUCOSE NEGATIVE (NEGATIVE); KETONE NEGATIVE (NEGATIVE); LEUKO ESTERASE NEGATIVE (NEGATIVE); NITRITE NEGATIVE (NEGATIVE); RBC 0-2 rbc/hpf (0-2); UROBILINOGEN 0.2 E.U./dl (0.2-1.0); WBC 0-2 wbc/hpf (0-5)
--- NOTE | 2019-12-12 13:16 | NUR ---
NOTIFIED FLOOR OF PATIENT COMING.
--- NOTE | 2019-12-12 13:50 | NUR ---
PATIENT TAKEN TO 4TH FLOOR BY THIS NURSE. RANJANA LYN GIVEN BEDSIDE REPORT. NO CHANGE IN PATIENT STATUS. A&OX4.
--- NOTE | 2019-12-12 14:33 | NUR ---
MSTime: 1430 A 84 year old FEMALE admitted to under services of MANUEL SANTO DO. Pt. arrived via bed from ER. Chief complaint: UNABLE TO AMBULATE. BLLE SWELLING. RANJANA HERNANDEZ.
--- NOTE | 2019-12-12 15:00 | NUR ---
COAL BAGGER [facility] Patient discharged from [facility] yesterday 12/11/2019. Family took her home. Per Sonja a room was ready at [facility] to transition the patient from to [facility]. Family opted to take her home instead. Patient was to private pay as her insurance issued her a last day covered. The transition to [facility] was going to be private pay.
[2019-12-12 16:00] VITALS: BP 120/80
--- NOTE | 2019-12-12 17:31 | NUR ---
UNABLE TO VERIFY HOME MEDICATIONS AT THIS TIME DUE TO OUTPATIENT PHARMACY BEING CLOSED.
--- NOTE | 2019-12-12 17:45 | NUR ---
[facility] CONTACTED AT THIS TIME REGARDING MED LIST. AWAITING FOR FAXED LIST.
--- NOTE | 2019-12-12 17:46 | NUR ---
NOTIFIED REGARDING NO IV ACCESS.
[2019-12-12] MEDS ORDERED: ARGINAID POWDE1 EACH PO (17:53)
[2019-12-12] MEDS ORDERED: BUMETANIDE2 MG PO (18:09)
[2019-12-12] MEDS ORDERED: ACETAZOLAMIDE250 MG PO (18:11)
[2019-12-12] MEDS ORDERED: Ipratropium Brom3 ML INH (18:13)
[2019-12-12] MEDS ORDERED: FEOSOL325 MG PO (18:14)
[2019-12-12] MEDS ORDERED: XARE15TA PO (18:19)
[2019-12-12] MEDS ORDERED: NYSTATIN15 GM T (18:22)
--- NOTE | 2019-12-12 18:29 | NUR ---
MED REC UPDATED PER POLICY.
--- NOTE | 2019-12-12 18:38 | NUR ---
UPDATED REGARDING MED REC.
--- NOTE | 2019-12-12 19:50 | NUR ---
SPOKE WITH DR. BOLANOS AT THIS TIME, PATIENTS RECTAL TEMP 93.8. ORDER RECIEVED FOR WENDI OROPEZA
[2019-12-12 20:00] VITALS: BP 125/62
--- NOTE | 2019-12-12 21:34 | NUR ---
NOTIFIED DR. SUMMERS AT THIS TIME THAT PATIENT'S RECTAL TEMP IS 93.9. PORTAL MONITOR TAKEN TO RECTAL MONITOR THE PATIENTS TEMPERATURE. PATIENT REMAINS ASYMPMTOMATIC. WILL CONTINUE TO MONITOR
[2019-12-13] VITALS: BP 100/54
--- NOTE | 2019-12-13 00:51 | NUR ---
NOTIFIED DR. BOLANOS AT THIS TIME OF PATIENTS BLOOD PRESSURE BEING 100/54 AND IS TO GET 100MG OF LOPRESSOR Q8H AND PATIENT HAS HISTORY OF AFIB. PATIENTS HEART RATE APICALLY IS 74. DR. BOLANOS STATED TO RETAKE THE BLOOD PRESSURE IN 1 HOUR AND CALL HIM BACK
--- NOTE | 2019-12-13 01:00 | NUR ---
PATIENTS RECTAL TEMP 95.0. PATIENT REMAINS ON BEAR HUGGER, REMAINS ASYMPTOMATIC
[2019-12-13 01:50] VITALS: BP 94/52
--- NOTE | 2019-12-13 01:54 | NUR ---
DR. CHANEY MADE AWARE OF PATIENTS MANUAL BLOOD PRESSURE 94/52. TOYA HENDERSON
--- NOTE | 2019-12-13 03:45 | NUR ---
PATIENT SLEEPING. NO DISTRES NOTED. RECTAL PROB EREADING 96.4 RECTALLY. CALL LIGHT WITHIN REACH, WILL MONITOR
[2019-12-13 06:15] LABS: HEMATOCRIT 32.4 % (37.0-47.0); LYMPH # 0.7 10*3/uL (1.3-4.4); LYMPH % 16.5 % (27.0-41.0); MEAN CELL VOLUME 104.9 fl (81.0-99.0); MEAN CORPUSCULAR HGB 29.1 pg (27.0-31.0); MEAN CORPUSCULAR HGB CONC 27.8 g/dl (33.0-37.0); MEAN PLATELET VOLUME 10.2 fl (9.6-12.3); MONO # 0.8 10*3/uL (0.1-1.0); MONO % 18.4 % (3.0-9.0); NEUT # 2.6 10*3/uL (2.3-7.9); NEUT % 63.9 % (47.0-73.0); PLATELET COUNT AUTOMATED 138 10*3/uL (130-400); RED BLOOD COUNT 3.09 10*6/uL (4.10-5.10); RED CELL DISTRI WIDTH 24.5 % (0-14.5); WHITE BLOOD COUNT 4.1 10*3/uL (4.8-10.8)
[2019-12-13 06:33] LABS: ALBUMIN 2.9 gm/dl (3.1-4.5); CREATININE 1.47 mg/dL (0.55-1.02); PHOSPHOROUS 4.5 mg/dL (2.5-4.9); POTASSIUM 3.6 mmol/L (3.5-5.1); TOTAL PROTEIN 5.8 gm/dL (6.4-8.2)
[2019-12-13 06:39] LABS: FREE T4 0.96 ng/dl (0.76-1.46); THYROID STIM HORMONE (HS) 6.92 uIU/ml (0.358-4.75)
[2019-12-13 06:45] LABS: ACT PARTIAL THROMBO TIME 29.3 SECONDS (20.0-32.1)
[2019-12-13 08:00] VITALS: BP 92/50
--- NOTE | 2019-12-13 08:09 | NUR ---
RESIDENTIAL MENTAL HEALTH WORKER spoke with Emily who stated she is having her Director Of Student Financial Services check with the patient insurance about obtaining more SNF days, if unable family will have to private pay. If the patient/family would like her to return to one of [facility] facilities.
--- NOTE | 2019-12-13 08:49 | NUR ---
PHYSICAL THERAPY Attempted to see pt for evaluation breakfast tray arrived pt set up to eat and spoke with nsg will coordinate assessment after meal as to obtain orthorstatic BP's. Dania Demarco PT
--- NOTE | 2019-12-13 09:07 | NUR ---
DR. RAI CALLED REGARDING PT BP OF . ORDERED TO HOLD LOPRESSOR, BUMEX, AND IMDUR. NO OTHER ORDERS AT THIS TIME
--- NOTE | 2019-12-13 09:20 | NUR ---
Occupational Therapy evaluation completed on four with full evaluation to follow. Recommend occupational therapy per plan of care and SNF upon discharge. If refused, home with SN, OT, and PT with 20/03 supervision assist. Thank you for this referral. Bethanie Novoa OTR/L
--- NOTE | 2019-12-13 09:43 | NUR ---
DR. ADEN NOTIFIED OF ORTHOSTATIC BP RESULTS.
--- NOTE | 2019-12-13 10:07 | NUR ---
Physical Therapy evaluation completed on 4th floor please see full evaluation in chart. Recommend physical therapy per plan of care and SNF upon discharge, if goes home will require 24 hours care/assist and will need full home health services. Thank you for this referral. Dania Demarco PT
--- NOTE | 2019-12-13 11:45 | NUR ---
FABRICATOR ARTIFICIAL BREAST reached out to the patients daughter Apolonia. Apolonia stated she is wanting the patient to return home. Patient currently has frozen meals, [employer], and a cleaning lady. Patients daughter has been in contact with [facility]. She is uncertain if she will be going with them or not. Per patients daughter they almost have the 24hr supervision covered just working on a couple of things. She stated that she would like a the patient to have a hospital bed, and a script for Lift Chair as insurance will cover the motor of it. Patient left [facility] with [facility] services PT,OT,RNs,Aides. Daughter would like these resumed. Patient uses [facility] as well. Patient daughter is wanting the patient to have a hosptial bed before she returns home. FABRICATOR ARTIFICIAL BREAST spoke with RN Hospitalist Coordinator Dalila about scripts for a Hosptial Bed and Reclining Chair. FABRICATOR ARTIFICIAL BREAST spoke with Bakelite Molder Ninfa about the patient.
[2019-12-13 12:00] VITALS: BP 132/95
--- NOTE | 2019-12-13 13:26 | NUR ---
FRED received call from patients daughter Eleanor Brown ([phone]). She wanted it known that the patient will need to be transported home via ambulance whenever the patient is discharged. She stated she would like [facility] to be the preferred method of transportation.
--- NOTE | 2019-12-13 14:19 | NUR ---
MIDDLEWARE ENGINEER received script. MIDDLEWARE ENGINEER faxed script to Wally (F:[phone]) at [facility]. MIDDLEWARE ENGINEER placed script on patients chart. Patients bed and lift chair should be delivered this evening per family.
[2019-12-13 16:00] VITALS: BP 103/50
[2019-12-13 20:00] VITALS: BP 95/46
[2019-12-14] VITALS: BP 113/83
--- NOTE | 2019-12-14 | NUR ---
PATIENT RECTAL TEMP 97.6 . PATIENT STILL ON BEAR HUGGER PATIENT ASYMPTOMATIC. WILL CONTINUE TO MONITOR.
--- NOTE | 2019-12-14 02:00 | NUR ---
PATIENT RECTAL TEMP 97.9. PATIENT WAS ON BEAR HUGGER. STATED SHE WAS GETTING TOO UNCOMFORTABLY WARM AND WANTED A BREAK. BEAR HUGGAR ON STANDBY PER PATIENT REQUEST. WILL CONTINUE TO MONITOR TEMP. REINFORCED USE OF CALL LIGHT.
--- NOTE | 2019-12-14 05:20 | NUR ---
24 HR chart check completed.
[2019-12-14 06:38] LABS: BASO % 0.7 % (0.0-1.0); EOS % 0.5 % (1.0-4.0); HEMATOCRIT 32.1 % (37.0-47.0); LYMPH # 0.9 10*3/uL (1.3-4.4); LYMPH % 21.5 % (27.0-41.0); MEAN CELL VOLUME 103.9 fl (81.0-99.0); MEAN CORPUSCULAR HGB 28.5 pg (27.0-31.0); MEAN CORPUSCULAR HGB CONC 27.4 g/dl (33.0-37.0); MEAN PLATELET VOLUME 10.3 fl (9.6-12.3); MONO # 0.8 10*3/uL (0.1-1.0); MONO % 19.4 % (3.0-9.0); NEUT # 2.4 10*3/uL (2.3-7.9); NEUT % 57.7 % (47.0-73.0); PLATELET COUNT AUTOMATED 142 10*3/uL (130-400); RED BLOOD COUNT 3.09 10*6/uL (4.10-5.10); RED CELL DISTRI WIDTH 24.6 % (0-14.5); WHITE BLOOD COUNT 4.2 10*3/uL (4.8-10.8)
[2019-12-14 06:58] LABS: CREATININE 1.34 mg/dL (0.55-1.02)
[2019-12-14 08:00] VITALS: BP 117/60
--- NOTE | 2019-12-14 09:30 | NUR ---
Patient resting quietly with no c/o discomfort. Respirations easy and regular. Vital signs stable. No overt distress. WEN MUNIZ R
[2019-12-14] MEDS ORDERED: IMDUR SA30 MG PO (11:28)
[2019-12-14] MEDS ORDERED: METOPROLOL TART50 M1 PO (11:28)
[2019-12-14 12:00] VITALS: BP 118/64
--- NOTE | 2019-12-14 12:30 | NUR ---
SPOKE WITH DAUGHTER YOLY. SHE STATES SHE WILL BE READY AT 1430. MED CHANGES REVIEWED WITH DAUGHTER.
--- NOTE | 2019-12-14 15:09 | NUR ---
Discharge instructions reviewed with patient/family. Patient receptive and verbalizes understanding. Follow-up care arranged. Written instructions given to patient/family. WEN MUNIZ
== END 2019-12-14 15:23 | disposition home or self-care (01) | DRG 300 ==
LOC: ED 08:55 → 4E 12:09 → EDHOLD 12:09 → 4E 12:22
PROVIDERS: Emergency Medicine; Family Medicine; Hospitalist; ADMIT Internal Medicine
DX: I87.2 Venous insufficiency (chronic) (peripheral) (principal); I50.22 Chronic systolic (congestive) heart failure; I13.0 Hypertensive heart and chronic kidney disease with heart failure and stage 1 through stage 4 chronic kidney disease, or unspecified chronic kidney disease; I89.0 Lymphedema, not elsewhere classified; D53.9 Nutritional anemia, unspecified; E03.9 Hypothyroidism, unspecified; M81.0 Age-related osteoporosis without current pathological fracture; N18.3 Chronic kidney disease, stage 3 (moderate); K21.9 Gastro-esophageal reflux disease without esophagitis; F41.9 Anxiety disorder, unspecified; I27.21 Secondary pulmonary arterial hypertension; E78.2 Mixed hyperlipidemia; J44.9 Chronic obstructive pulmonary disease, unspecified; I48.91 Unspecified atrial fibrillation; E11.65 Type 2 diabetes mellitus with hyperglycemia; E11.22 Type 2 diabetes mellitus with diabetic chronic kidney disease; Z79.01 Long term (current) use of anticoagulants; Z88.8 Allergy status to other drugs, medicaments and biological substances; Z88.0 Allergy status to penicillin; Z88.2 Allergy status to sulfonamides; Z79.899 Other long term (current) drug therapy; Z96.653 Presence of artificial knee joint, bilateral; Z90.710 Acquired absence of both cervix and uterus; Z90.49 Acquired absence of other specified parts of digestive tract; Z96.611 Presence of right artificial shoulder joint; Z85.828 Personal history of other malignant neoplasm of skin; Z82.49 Family history of ischemic heart disease and other diseases of the circulatory system; Z83.3 Family history of diabetes mellitus; Z83.6 Family history of other diseases of the respiratory system

== ENCOUNTER 2020-01-15 11:50 | Inpatient (IN) | payer OTHER ==
[~2020-01-15] VITALS: Ht 166.4 cm; Wt 98.7 kg
[2020-01-15] VITALS (8 sets, daily range): BP systolic 96–156; BP diastolic 53–83
[~2020-01-15 11:50] MED LIST changes: +ACETAZOLAMIDE250 MG PO; +ARGINAID POWDE1 EACH PO; +BUMETANIDE2 MG PO; +FEOSOL325 MG PO; +Ipratropium Brom3 ML INH; +NYSTATIN15 GM T; +XARE15TA PO
--- NOTE | 2020-01-15 12:23 | NUR ---
ATTEMPTED TO START IV X 4. NO SUCCESS.
--- NOTE | 2020-01-15 13:24 | NUR ---
SLEEOING SOUNDLY, AROUSES WHEN SPOKEN TO. NO COMPLAINTS.
--- NOTE | 2020-01-15 13:31 | NUR ---
LAB HAS BEEN UNABLE TO DRAW BLOOD.
[2020-01-15 13:32] LABS: BILIRUBIN NEGATIVE (NEGATIVE); CLARITY CLEAR (CLEAR); COLOR STRAW (YELLOW); GLUCOSE NEGATIVE (NEGATIVE); KETONE NEGATIVE (NEGATIVE)
[2020-01-15 13:33] LABS: BLOOD NEGATIVE (NEGATIVE); LEUKO ESTERASE NEGATIVE (NEGATIVE); NITRITE NEGATIVE (NEGATIVE); PH 8.5 (5.0-9.0); SPECIFIC GRAVITY 1.005 (1.005-1.030); UROBILINOGEN 0.2 E.U./dl (0.2-1.0)
[2020-01-15 13:54] LABS: BACTERIA 1+; EPITHELIAL CELLS 0-2; MUCOUS TRACE; RBC 0-2 rbc/hpf (0-2); WBC 0-2 wbc/hpf (0-5)
--- NOTE | 2020-01-15 14:20 | NUR ---
DR LACY CORDOVA LAB HAS THUS FAR BEEN UNABLE TO DRAW.
[2020-01-15 14:54] LABS: HEMATOCRIT 35.8 % (37.0-47.0); MEAN CELL VOLUME 107.5 fl (81.0-99.0); MEAN CORPUSCULAR HGB 30.6 pg (27.0-31.0); MEAN CORPUSCULAR HGB CONC 28.5 g/dl (33.0-37.0); MEAN PLATELET VOLUME 10.6 fl (9.6-12.3); PLATELET COUNT AUTOMATED 149 10*3/uL (130-400); RED BLOOD COUNT 3.33 10*6/uL (4.10-5.10); RED CELL DISTRI WIDTH 19.5 % (0-14.5); WHITE BLOOD COUNT 5.1 10*3/uL (4.8-10.8)
[2020-01-15 15:08] LABS: ALBUMIN 3.9 gm/dl (3.1-4.5); CREATININE 1.68 mg/dL (0.55-1.02); POTASSIUM 3.9 mmol/L (3.5-5.1); TOTAL PROTEIN 7.2 gm/dL (6.4-8.2)
[2020-01-15 15:10] LABS: BASO % 0.6 % (0.0-1.0); EOS % 0.2 % (1.0-4.0); LYMPH # 1.1 10*3/uL (1.3-4.4); LYMPH % 17.4 % (27.0-41.0); MONO # 1.2 10*3/uL (0.1-1.0); MONO % 18.2 % (3.0-9.0); NEUT # 4.1 10*3/uL (2.3-7.9); NEUT % 63.3 % (47.0-73.0); TROPONIN I 0.059 ng/ml (<0.045)
[2020-01-15 15:14] LABS: BASOPHILS 1 % (0-1); PLATELET SUFFICIENCY LOW (NORMAL); TOTAL CELLS COUNTED 100 #CELLS
[2020-01-15 15:15] LABS: POLYCHROMASIA SLIGHT
[2020-01-15 15:20] LABS: ACT PARTIAL THROMBO TIME 26.8 SECONDS (20.0-32.1)
[2020-01-15 16:20] LABS: ABG BASE EXCESS 22.3 mmol/L (-2.0-2.0); ARTERIAL BLOOD GAS PH 7.424 (7.35-7.45)
--- NOTE | 2020-01-15 16:39 | NUR ---
INCONTINENT IN BED FOR A LARGE AMMOUNT OF URINE.
--- NOTE | 2020-01-15 17:00 | NUR ---
A 84, admitted to 5E, under the services of LISA Mclaughlin DO with a diagnosis of ACUTE HEART FAILURE. Chief complaint is CHANGE IN MENTAL STATUS LETHARGY AT HOME. Patient arrived via ambulance from ER. Monitor applied. Initial assessment completed. Vital signs taken and recorded. LISA MCLAUGHLIN DO notified of admission to the unit. Orders received. See assessment for past medical history, medications and allergies. Patient and/or family oriented to unit. [address] visitation policy reviewed. Clothing/patient valuable form completed. TEA LEPE
--- NOTE | 2020-01-15 17:41 | NUR ---
SPOKE WITH DAUGHTER SHE WILL GO HOME AND CALL BACK WITH PT EDELMIRA CORREA.
--- NOTE | 2020-01-15 18:15 | NUR ---
CALLED DR. PETTIT AWARE PT CRITICAL TROPONIN. ALSO AWARE PT MEDICATIONS UPDATED AND NEED ORDERED.
[2020-01-15] MEDS ORDERED: METOPROLOL25 MG PO (18:19)
[2020-01-15] MEDS ORDERED: K-TAB10 MEQ PO (18:20)
[2020-01-15] MEDS ORDERED: ASPIRIN81 M1 PO (18:21)
[2020-01-15] MEDS ORDERED: PLAVIX75 M1 PO (18:21)
[2020-01-15] MEDS ORDERED: DIGOXIN125 MCG PO (18:21)
--- NOTE | 2020-01-15 18:30 | NUR ---
CALLED DR. WINCHESTER AWARE OF CONSULT. ORDERS TAKEN FOR ABG
--- NOTE | 2020-01-15 18:50 | NUR ---
RESPIRATORY ON FLOOR TO GET ABG PT EATING AND WANTS TO WAIT.
--- NOTE | 2020-01-15 18:52 | NUR ---
DR. ANGELES GROUP BEEPED FOR CONSULT.
--- NOTE | 2020-01-15 18:56 | NUR ---
DR. PARKER CALLED AWARE OF CONSULT. NO NEW ORDERS.
--- NOTE | 2020-01-15 19:30 | NUR ---
RESPIRATORY WENT TO TRANFER PT AND WILL BE BACK TO DO ABG'S
--- NOTE | 2020-01-15 19:30 | NUR ---
PATIENT VOICED NO COMPLAINTS. NO OVERT DISTRESS NOTED. CALL LIGHT WITHIN REACH
--- NOTE | 2020-01-15 19:40 | NUR ---
DR. CHANDLER CALLED AWARE PT MEDICATIONS WAS VERIFIED AND NEED ORDERED.
--- NOTE | 2020-01-15 19:50 | NUR ---
CALLED DR. CHANDLER MADE AWARE PT HAS SKIN TEAR TO LEFT ELBOW AND L WRIST. ALSO RIGHT GROIN IS RED AND EXCORIATED. ALSO LOOKS LIKE HEALING AREAS TO R&L BUTTOCK NOT OPENED AND IS BLANCHABLE. NEED ORDERS.
--- NOTE | 2020-01-15 20:21 | NUR ---
AWARE OF TROP OF 0.063. STATED OK
--- NOTE | 2020-01-15 21:11 | NUR ---
Attempted blood gas X4 with 3 different therapists. Carin called and said to cancel it and he will see her in the morning. Pt stable on 2L. No comps.
--- NOTE | 2020-01-15 21:26 | NUR ---
LOPRESSOR HELD PER NURSING JUDGEMENT. MANUAL BP OF 100/62, HR MAINTAINING 70'S. WILL CONTINUE TO MONITOR
[2020-01-16] VITALS (8 sets, daily range): BP systolic 84–130; BP diastolic 44–90
--- NOTE | 2020-01-16 01:58 | NUR ---
INFORMED THAT PATIENT HAD TRAN PLACED IN ER. ORDERS IS NEEDED TO MAINTAIN TRAN. STATED OK.
--- NOTE | 2020-01-16 04:10 | NUR ---
JERED SHAW [id number] Please refer to the physician's history and physical for past medical history, comorbid conditions, and allergies. Diagnosis: ACUTE HEART FAILURE Jp Score: 15,AT RISK WOUND DESCRIPTIONS: Wound Number:1 coccyx intact scar tissue noted. No open areas or drainage at time of assessment. Wound Number: 2 Location of the wound: left elbow Type of wound: skin tear Thickness: Partial Size: 0.6cm x 0.4cm x 0.1cm Tunneling: none Undermining: none Sinus Tract: none Presence of Exudate: none Amount: None Color: Red Odor: None Periwound Skin Appearance: Normal Wound edges: approximated Pain (associated with wound): none at time of assessment How does patient state this happened? pt unsure how this happened Wound Number: 3 Left wrist intact scabbed area noted. No open areas noted at time of assessment. No draiange noted at time of assessment. Wound Number: 4 Right groin pink and blanchable at time of assessment. No odor at time of assessment. Wound Number: 5 Location of the wound: right medial aspect of knee Type of wound: dti Size: 1.2cm x 2.5cm x <0.1cm Tunneling: none Undermining: none Sinus Tract: none Presence of Exudate: none Amount: None Color: Purple, red Odor: None Periwound Skin Appearance: Normal Wound edges: intact serum filled blister Pain (associated with wound): none at time of assessment How does patient state this happened? pt unable to state how this happened Surface the patient is resting on: Isoflex SKIN PREVENTION RECOMMENDATION: 1. Pressure redistribution support surface as appropriate 2. Elevate heels 3. Remove boots/TEDS every shift and reapply 4. Head of bed 30 degrees as tolerated 5. Assess nutrition and hydration 6. Manage moisture 7. Avoid the use of containment devices while in bed 8. Use absorptive products on surfaces limit layers of linens on bed 9. Turn and reposition every 1-2 hours in bed and every 1 hour in chair as tolerated 10. Weight shifts every 15 minutes while up in chair 11. Offloading with pillows or device to keep heels elevated off bed 12. Monitor skin at least every shift 13. Inspect under medical devices twice a day WOUND TREATMENT RECOMMENDATIONS: Cleanse buttocks and periarea with soap and water and apply hydraguard every shift and prn for soiling Wheelchair cushion when oob Heel raiser pro boots to bilateral feet while in bed Cleanse bilateral groins with soap and water pat areas dry then apply nystatin powder every 12 hours Apply sureprep to medial aspect of right knee and allow time to dry cover with optifoam gentle daily and prn for soiling Skin tear guidelines: Cleanse left elbow with nss and apply sureprep around the wound hydrogel to wound bed and cover with optifoam gentle.
--- NOTE | 2020-01-16 05:40 | NUR ---
Dr. Castro notified of wound care recommendations.
[2020-01-16 06:28] LABS: ALBUMIN 3.1 gm/dl (3.1-4.5); CREATININE 1.58 mg/dL (0.55-1.02); FREE T4 1.07 ng/dl (0.76-1.46); POTASSIUM 3.6 mmol/L (3.5-5.1)
[2020-01-16 06:35] LABS: THYROID STIM HORMONE (HS) 12.5 uIU/ml (0.358-4.75)
[2020-01-16 07:10] LABS: HEMATOCRIT 30.8 % (37.0-47.0); MEAN CELL VOLUME 106.2 fl (81.0-99.0); MEAN CORPUSCULAR HGB CONC 29.2 g/dl (33.0-37.0); MEAN PLATELET VOLUME 10.5 fl (9.6-12.3); PLATELET COUNT AUTOMATED 135 10*3/uL (130-400); RED CELL DISTRI WIDTH 19.2 % (0-14.5); WHITE BLOOD COUNT 4.8 10*3/uL (4.8-10.8)
[2020-01-16 07:48] LABS: BASOPHILS 4 % (0-1); TOTAL CELLS COUNTED 100 #CELLS
[2020-01-16 07:59] LABS: PLATELET SUFFICIENCY NORMAL (NORMAL); POLYCHROMASIA SLIGHT
--- NOTE | 2020-01-16 07:59 | NUR ---
PHYSICAL THERAPY Screen and PT eval received will follow thank you. Dania Demarco PT
--- NOTE | 2020-01-16 08:01 | NUR ---
Occupational therapy orders and nursing screen received. Will follow up with patient for completion of OT evaluation. Thank you. Bethanie Novoa, OTR/L
[2020-01-16 08:10] LABS: VITAMIN D, 25-HYDROXY 45.2 ng/mL (30-100)
--- NOTE | 2020-01-16 09:55 | NUR ---
PT RESTING IN BED WITH EYES CLOSED. AWAKENS EASILY. RESP-EASY AND REGULAR. REPOSITIONED IN BED. BP 100/46 MANUALLY. HELD LOPRESSOR. CALL LIGHT IN REACH. SEE SHIFT ASSESSMENT.
--- NOTE | 2020-01-16 11:09 | NUR ---
PHYSICAL THERAPY Physical therapy evaluation attempted. Patient lethargic. Manual blood pressure 84/52, per nursing. Hold PT at this time. Will try again at a later date. Thank you. Maria Luz Tam,PT,DPT.
--- NOTE | 2020-01-16 11:11 | NUR ---
CALLED DR. PETTIT MADE AWARE PT BP 84/52 MANUALLY. PT RESTING IN BED. PHYSICAL THERAPY IN ROOM WITH PT. PER DR. PETTIT CALL CARDIOLOGY AND SEE WHAT THEY WANT TO DO.
--- NOTE | 2020-01-16 11:13 | NUR ---
CALLED DR. ANGELES PER HIM KEEP PT ON BEDREST AND HE WILL BE IN TO SEE HER.
--- NOTE | 2020-01-16 11:18 | NUR ---
Occupational therapy evaluation attempted on 01/16/2020 11:02AM. Pt presented lethargic upon therapist arrival. Nursing took manual blood pressure 84/52. Hold OT until pt vitals stable. Will attempt again when pt medically stable for evaluation. Meg Khoury OTR/L
--- NOTE | 2020-01-16 12:18 | NUR ---
Reefer Engineer in to talk to patient. Patient states lives at HOME with ALONE WITH DAUGHTERS LIVING NEAR AND CHECKING ON HER FREQUENTLY. There are NO steps in the home. Physician: [facility] Pharmacy: [facility] health services: [facility] Patient's level of ADLs: MODERATE ASSIST Patient has working utilities: YES DME: [employer], DOES NOT KNOW COMPANY Follow-up physician's appointment after d/c: WILL BE MADE BY HOSPITALIST NURSE DIRECTOR ON DISCHARGE Does patient want to access PORTAL?: N Discharge plan PT LIVES AT HOME ALONE, DAUGHTERS LIVE NEAR BY AND CHECK ON PT REQUENTLY. PT IS ACTIVE WITH [facility] ALSO. DENIES SHE WILL HAVE ANY FURTHER NEEDS ON DISCHARGE. WILL TALK WITH DAUGHTER MARGARET TO CHECK NEEDS. WILL CONTINUE TO FOLLOW. PT STATES SHE USUALLY TAKES AN AMBULANCE HOME. . TAHIR JACKSON
--- NOTE | 2020-01-16 14:38 | NUR ---
PT BP 94/44 MANUALLY, DR. PETTIT CALLED MADE AWARE. HE CAME TO FLOOR TO SEE PT. PT RESTING IN BED WITH BIPAP IN USE. CALL LIGHT IN REACH.
--- NOTE | 2020-01-16 14:42 | NUR ---
DR. ANGELES CALLED AWARE PT BP AND OK TO GIVE BUMEX AND HOLD METOPROLOL. ANOTHER BP TAKEN 100/48.
--- NOTE | 2020-01-16 15:00 | NUR ---
IV started right forearm with #22 angiocath after 1 attempts. The IV site was prepped with Chloraprep. Heparin lock attached. Sterile dressing applied. Patient tolerated precedure well. Procedure performed according to [facility] policy & procedure. TEA LEPE
[2020-01-16 16:18] LABS: ABG BASE EXCESS 22.8 mmol/L (-2.0-2.0); ARTERIAL BLOOD GAS PH 7.47 (7.35-7.45)
--- NOTE | 2020-01-16 17:20 | NUR ---
PATIENT TAKEN OFF OF BI-PAP, PLACED ON 2 L/M.
--- NOTE | 2020-01-16 18:15 | NUR ---
DR. WINCHESTER CALLED MADE AWARE PT ABG'S NO NEW ORDERS.
--- NOTE | 2020-01-16 18:30 | NUR ---
PT RESTING IN BED. RESP-EASY AND REGULAR. OXYGEN IN USE. CALL LIGHTIN REACH. BED ALARM ON.
--- NOTE | 2020-01-16 19:48 | NUR ---
PATIENT RESTING IN BED, CURRENTLY ON BREATHING TX. WITHOUT COMPLAINTS. WILL CHECK BACK. BED IN LOWEST, LOCKED POS, CALL LIGHT IN REACH, BED ALARM MAINTAINED.
--- NOTE | 2020-01-16 20:18 | NUR ---
PATIENT SLEEPING; AWAKENS EASILY TO NAME BEING CALLED. ON 2L VIA NC, UNLABORED RESPIRATIONS, DENIES SOB. SEE SHIFT ASSESSMENT.
--- NOTE | 2020-01-16 22:19 | NUR ---
DR CORDOVA NOTIFIED OF MANUAL BP 98/50 AND PATIENT DUE FOR BUMEX AND METOPROLOL; STATES OK TO HOLD BOTH.
--- NOTE | 2020-01-16 22:55 | NUR ---
PLACED PATIENT ON BIPAP FOR HS
--- NOTE | 2020-01-16 23:20 | NUR ---
PATIENT REQUEST TO BE TAKEN OFF BIPAP. 2L PLACED ON PT VIA NC.
[2020-01-17] VITALS: BP 101/59
--- NOTE | 2020-01-17 04:10 | NUR ---
patient agreeable to wear bipap at this time.
[2020-01-17 06:10] VITALS: BP 90/46
[2020-01-17 06:27] LABS: BASO % 0.4 % (0.0-1.0); EOS # 0.1 10*3/uL (0.0-0.4); EOS % 1.9 % (1.0-4.0); HEMATOCRIT 28.9 % (37.0-47.0); LYMPH # 1.2 10*3/uL (1.3-4.4); LYMPH % 20.5 % (27.0-41.0); MEAN CELL VOLUME 105.1 fl (81.0-99.0); MEAN CORPUSCULAR HGB 30.5 pg (27.0-31.0); MEAN CORPUSCULAR HGB CONC 29.1 g/dl (33.0-37.0); MEAN PLATELET VOLUME 10.8 fl (9.6-12.3); MONO % 17.3 % (3.0-9.0); NEUT # 3.4 10*3/uL (2.3-7.9); NEUT % 59.5 % (47.0-73.0); PLATELET COUNT AUTOMATED 164 10*3/uL (130-400); RED BLOOD COUNT 2.75 10*6/uL (4.10-5.10); WHITE BLOOD COUNT 5.7 10*3/uL (4.8-10.8)
[2020-01-17 06:31] LABS: ALBUMIN 3.5 gm/dl (3.1-4.5); CREATININE 1.64 mg/dL (0.55-1.02); POTASSIUM 3.2 mmol/L (3.5-5.1); TOTAL PROTEIN 6.2 gm/dL (6.4-8.2)
--- NOTE | 2020-01-17 06:42 | NUR ---
DR CHANDLER NOTIFIED OF PT'S CRITICAL CO2
--- NOTE | 2020-01-17 07:00 | NUR ---
PATIENT TAKEN OFF OF BI-PAP, PLACED ON 2 L/M.
--- NOTE | 2020-01-17 07:15 | NUR ---
bipap taken off and 02 placed on by RT at this time.
[2020-01-17 08:00] VITALS: BP 109/64
--- NOTE | 2020-01-17 09:50 | NUR ---
PHYSICAL THERAPY Physical Therapy evaluation completed on 5E with full evaluation to follow. Low complexity PT evaluation per chart review and evaluation, [id number]. Recommend physical therapy per plan of care and SNF upon discharge. Thank you for this referral. Maria Luz Tam,PT,DPT
--- NOTE | 2020-01-17 09:56 | NUR ---
IN TO SEE PT.
[2020-01-17 12:00] VITALS: BP 101/59
[2020-01-17 14:10] LABS: ACT PARTIAL THROMBO TIME 34.7 SECONDS (20.0-32.1); INTERNATIONAL NORM RATIO 1.4 (2.0-3.5)
--- NOTE | 2020-01-17 14:30 | NUR ---
HEPARIN DRIP STARTED VIA DVT PROTOCOL PER ORDERS. RUNNING AT 18U/KG/HR, 18.2 ML/HR. VERIFIED BY MYSELF AND EBONI PLATA. EDUCATED PT. PT UNDERSTANDS REASONING FOR PROTOCOL.
--- NOTE | 2020-01-17 14:45 | NUR ---
TALKED WITH PT DAUGHTER MARGARET. SHE STATES PLANS ARE TO TAKE PT BACK HOME WITH [facility]. STATES THE NURSE, AID, PT AND OT WERE WONDERFUL THAT PT HAD AND IT WAS WORKING WELL. WILL RESUME [facility] WHEN PT DISCHARGED.
[2020-01-17 16:00] VITALS: BP 111/69
--- NOTE | 2020-01-17 16:17 | NUR ---
PT SLEEPING, AWAKENS EASILY. NO COMPLAINTS AT THIS TIME. CALL LIGHT WITHIN REACH, WILL CONTTINUE TO MONITOR
--- NOTE | 2020-01-17 19:40 | NUR ---
PATIENT ASSESSMENT COMPLETED WITHOUT INCIDENT AT THIS TIME, PATIENT DENIES ANY PAIN OR DISTRESS AT THIS TIME. HEPARIN DRIP INFUSING INTO RIGHT ARM WITHOUT INCIDENT. CALL LIGHT WITHIN REACH WILL CONTINUE TO MONITOR.
[2020-01-17 20:00] VITALS: BP 104/84
--- NOTE | 2020-01-17 21:35 | NUR ---
LAB CALLED FLOOR AND NOTIFIED RN THAT THEY WERE UNABLE TO OBTAIN A VALUE FROM THE SAMPLE THEY OBTAINED.
--- NOTE | 2020-01-17 21:40 | NUR ---
HEPARIN DRIP SHUT OFF AT THIS TIME FOR APTT REDRAW.
--- NOTE | 2020-01-17 22:27 | NUR ---
LAB CALLED TO WITH CRITICAL APTT RESULT OF >130 AT THIS TIME. HEPARIN DRIP TURNED OFF AT 2140 FOR APTT DRAW, CALLING DR. CHANDLER FOR FURTHER ORDERS.
--- NOTE | 2020-01-17 22:30 | NUR ---
DR. CHANDLER NOTIFIED OF CRITICAL APTT >130 AT THIS TIME, ORDERS TO HOLD HEPARIN DRIP AND TO REPEAT APTT AT 0200 AND CALL HIM WITH THE RESULTS FOR FURTHER ORDERS. PATIENT MADE AWARE OF LAB RESULTS AND PLAN FOR BLOOD WORK REPEAT.
--- NOTE | 2020-01-17 23:27 | NUR ---
PATIENT OFF BIPAP AND BACK ON 2 L/M NC. PATIENT STATES SHE CANNOT STAND THE PRESSURE. ATTEMPTED TO USE THE RAMP BUT ONCE PRESSURE BEGAN TO INCREASE PATIENT REQUESTED THE MASK BE REMOVED.
[2020-01-18] VITALS: BP 99/51
--- NOTE | 2020-01-18 00:39 | NUR ---
24 HOUR CHART CHECK COMPLETE
--- NOTE | 2020-01-18 02:36 | NUR ---
SR. CHANDLER NOTIFIED AT THIS TIME OF CRITICAL APTT RESULT OF 130.7. ORDERS TO CONTINUE TO KEEP HEPARIN DRIP ON HOLD AND TO REPEAT APTT AT 0600.
--- NOTE | 2020-01-18 02:39 | NUR ---
ZABRINA FROM LAB NOTIFIED THIS RN OF CRITICAL APTT LEVEL OF 130.7 AT THIS TIME.
[2020-01-18 06:16] LABS: HEMATOCRIT 28.9 % (37.0-47.0); MEAN CELL VOLUME 106.3 fl (81.0-99.0); MEAN CORPUSCULAR HGB 30.1 pg (27.0-31.0); MEAN CORPUSCULAR HGB CONC 28.4 g/dl (33.0-37.0); MEAN PLATELET VOLUME 10.6 fl (9.6-12.3); PLATELET COUNT AUTOMATED 175 10*3/uL (130-400); RED BLOOD COUNT 2.72 10*6/uL (4.10-5.10); RED CELL DISTRI WIDTH 19.9 % (0-14.5); WHITE BLOOD COUNT 4.5 10*3/uL (4.8-10.8)
[2020-01-18 06:41] LABS: ALBUMIN 3.4 gm/dl (3.1-4.5); CREATININE 1.61 mg/dL (0.55-1.02); POTASSIUM 3.4 mmol/L (3.5-5.1); TOTAL PROTEIN 6.2 gm/dL (6.4-8.2)
--- NOTE | 2020-01-18 06:42 | NUR ---
LAB CALLED TO NOTIFY OF CRITICAL CO2 OF 44
--- NOTE | 2020-01-18 06:52 | NUR ---
DR. SALEEM NOTIFIED OF CRITICAL CO2 LEVEL OF 44 WHICH IS TRENDING DOWN FROM 51. NO ORDERS AT THIS TIME.
[2020-01-18 06:55] LABS: BASOPHILS 1 % (0-1); PLATELET SUFFICIENCY NORMAL (NORMAL); TOTAL CELLS COUNTED 100 #CELLS
[2020-01-18 06:56] LABS: POLYCHROMASIA SLIGHT; STOMATOCYTE FEW
--- NOTE | 2020-01-18 07:19 | NUR ---
ORDERED TO HOLD HEPARIN AND RECHECK APTT IN 6 HRS.
[2020-01-18 08:00] VITALS: BP 104/64
[2020-01-18 08:33] VITALS: BP 104/64
[2020-01-18 12:00] VITALS: BP 135/78
--- NOTE | 2020-01-18 13:12 | NUR ---
OK TO CONTINUE HEPARIN DRIP FOR DVT PER . APPT CURRENTLY 28.4.
--- NOTE | 2020-01-18 14:05 | NUR ---
heparin drip restarted per orders per policy. see mar. call light in reach. verified by 2 RNs.
--- NOTE | 2020-01-18 15:34 | NUR ---
ENCOURGED PT TO GT OUT OF CHAIR TO BED, REFUSED. TOLERATED PO MEDS WELL. CALL LIGHT WITHIN REACH.
[2020-01-18 16:00] VITALS: BP 114/36
--- NOTE | 2020-01-18 16:15 | NUR ---
HEPARIN DRIP D/C PER ORDERS. PT TO START ELIQUIS TODAY.
--- NOTE | 2020-01-18 18:07 | NUR ---
ENCOURGAED TO SHIFT WEIGHT AND TURN. PT REFUSING TO TURN FROM BACK ON TO SIDE OR SIT IN CHAIR AGAIN AT THIS TIME.
[2020-01-18 20:00] VITALS: BP 115/56; BP 126/48
--- NOTE | 2020-01-18 20:10 | NUR ---
PATIENT ASSESSMENT COMPLETED AT THIS TIME WITHOUT INCIDENT. PATIENT DENIES ANY CHEST PAIN/PRESSURE OR SHORTNESS OF BREATH AT THIS TIME. A&OX2 AT THIS TIME. NASAL CANNULA OXYGEN IN USE. CALL LIGHT WITHIN REACH, WILL CONTINUE TO MONITOR.
--- NOTE | 2020-01-18 23:52 | NUR ---
PLACED PATIENT ON BIPAP FOR HS
[2020-01-19] VITALS: BP 112/46
--- NOTE | 2020-01-19 01:55 | NUR ---
24 HOUR CHART CHECK COMPLETE
--- NOTE | 2020-01-19 04:00 | NUR ---
PATIENT OFF BIPAP. 2L NC IN USE
[2020-01-19 06:25] LABS: BASO % 0.6 % (0.0-1.0); EOS % 0.8 % (1.0-4.0); LYMPH # 1.3 10*3/uL (1.3-4.4); MEAN CELL VOLUME 106.6 fl (81.0-99.0); MEAN CORPUSCULAR HGB 30.5 pg (27.0-31.0); MEAN CORPUSCULAR HGB CONC 28.6 g/dl (33.0-37.0); MEAN PLATELET VOLUME 10.5 fl (9.6-12.3); MONO % 19.2 % (3.0-9.0); NEUT # 2.9 10*3/uL (2.3-7.9); PLATELET COUNT AUTOMATED 171 10*3/uL (130-400); RED BLOOD COUNT 2.72 10*6/uL (4.10-5.10); RED CELL DISTRI WIDTH 19.9 % (0-14.5); WHITE BLOOD COUNT 5.3 10*3/uL (4.8-10.8)
[2020-01-19 06:54] LABS: ALBUMIN 3.4 gm/dl (3.1-4.5); CREATININE 1.58 mg/dL (0.55-1.02); POTASSIUM 3.1 mmol/L (3.5-5.1); TOTAL PROTEIN 6.3 gm/dL (6.4-8.2)
--- NOTE | 2020-01-19 07:23 | NUR ---
AWARE OF SERUM CO2 43. NO NEW ORDERS REC'D.
[2020-01-19 08:00] VITALS: BP 118/48
--- NOTE | 2020-01-19 09:41 | NUR ---
REFUSING A BATH THIS AM.
[2020-01-19 12:00] VITALS: BP 125/47
--- NOTE | 2020-01-19 14:00 | NUR ---
REFUSED TO TURN. ENCOURAGED WEIGHT SHIFTING. BUTTOCK STILL PINK, BLANCHABLE AND INTACT. HYDRAGUAD APPLIED.
--- NOTE | 2020-01-19 14:20 | NUR ---
taken off of bipap per pt request. 3L NC in place.
[2020-01-19 16:00] VITALS: BP 122/73
[2020-01-19 20:00] VITALS: BP 126/42
--- NOTE | 2020-01-19 21:24 | NUR ---
PATIENT MEDICATED WITH DULCOLAX FOR COMPLAINTS OF CONSTIPATION AND NORCO FOR COMPLAINTS OF BILATERAL FOOT PAIN. WILL MONITOR FOR EFFECTIVENESS.
--- NOTE | 2020-01-19 23:00 | NUR ---
Pt placed on BiPap 16/12 and FiO2 at 28%. SpO2 98% Alarms on and audible.
--- NOTE | 2020-01-19 23:22 | NUR ---
ANDREW EFFECTIVE AT THIS TIME. PATIENT IN BED RESTING WITH EYES CLOSED. AROUSES TO VERBAL STIMULI. DENIES COMPLAINTS OF PAIN OR DISCOMFORT. WILL CONTINUE TO MONITOR. CALL LIGHT IN REACH.
[2020-01-20] VITALS: BP 121/52
--- NOTE | 2020-01-20 02:30 | NUR ---
PATIENT REMOVED HER BIPAP AT THIS TIME. O2 REAPPLIED AT 3L N/C. NO SIGNS OR SYMPTOMS OF DISTRESS NOTED. CALL LIGHT IN REACH.
--- NOTE | 2020-01-20 03:00 | NUR ---
Pt off BiPap at this time. Per nurse, the patient took off herself. Pt is on 2L NC at this time.
[2020-01-20 06:52] LABS: BASO % 0.5 % (0.0-1.0); EOS % 0.2 % (1.0-4.0); HEMATOCRIT 30.7 % (37.0-47.0); LYMPH # 1.1 10*3/uL (1.3-4.4); LYMPH % 18.3 % (27.0-41.0); MEAN CELL VOLUME 107.7 fl (81.0-99.0); MEAN CORPUSCULAR HGB 30.5 pg (27.0-31.0); MEAN CORPUSCULAR HGB CONC 28.3 g/dl (33.0-37.0); MEAN PLATELET VOLUME 10.3 fl (9.6-12.3); MONO % 17.5 % (3.0-9.0); NEUT # 3.7 10*3/uL (2.3-7.9); NEUT % 63.2 % (47.0-73.0); PLATELET COUNT AUTOMATED 188 10*3/uL (130-400); RED BLOOD COUNT 2.85 10*6/uL (4.10-5.10); RED CELL DISTRI WIDTH 19.7 % (0-14.5); WHITE BLOOD COUNT 5.8 10*3/uL (4.8-10.8)
[2020-01-20 07:02] LABS: CREATININE 1.72 mg/dL (0.55-1.02); POTASSIUM 3.5 mmol/L (3.5-5.1)
[2020-01-20 07:40] VITALS: BP 120/44
--- NOTE | 2020-01-20 08:00 | NUR ---
REFUSED TO TURN FROM BACK. STATES SHE IS COMFORTABLE. EDUCATED ON IMPORTANCE/BENEFITS. STILL REFUSED. CALL LIGHT IN REACH.
--- NOTE | 2020-01-20 10:24 | NUR ---
TRAN CATH REMOVED. TOLERATED WELL. WILL MONITOR VOIDING. ENCOURAGED CALL LIGHT WHEN SHE NEEDS FEEL URGE TO VOID.
[2020-01-20 12:00] VITALS: BP 127/73
--- NOTE | 2020-01-20 13:19 | NUR ---
INCONTINENT OF URINE FOLLOWING TRAN REMOVAL. BLADDER SCANNED FOR 0 CC.
[2020-01-20 16:00] VITALS: BP 109/83
--- NOTE | 2020-01-20 17:13 | NUR ---
DULCOLAX GIVEN FOR NO BM x4 DAYS. WILL RAY.
--- NOTE | 2020-01-20 19:10 | NUR ---
REPORT RECEIVED FROM JOEY LYN. PT LYING IN BED. NO DISTRESS NOTED. CALL LIGHT IN REACH
[2020-01-20 20:00] VITALS: BP 100/50
--- NOTE | 2020-01-20 21:30 | NUR ---
CALLED DR. CHANDLER REGARDING PT HR 56 AND BP 100/56. ORDERED TO HOLD LOPRESSOR AND BUMEX AND RECHECK IN 1 HR.
--- NOTE | 2020-01-20 23:00 | NUR ---
PT VITALS STABLE AT THIS TIME. MEDICATIONS GIVEN. RESPIRATORY ON FLOOR AT THIS TIME TO PUT PT ON BIPAP. CALL LIGHT IN REACH
[2020-01-20 23:19] VITALS: BP 112/66
[2020-01-21] VITALS: BP 113/66
--- NOTE | 2020-01-21 01:00 | NUR ---
PT SLEEPING AT THIS TIME.
--- NOTE | 2020-01-21 03:00 | NUR ---
PT SLEEPING AT THIS TIME. BIPAP IN PLACE. CALL LIGHT IN REACH
--- NOTE | 2020-01-21 05:00 | NUR ---
PT REQUESTING TO COME OFF BIPAP AT THIS TIME. RESPIRATORY NOTIFIED
--- NOTE | 2020-01-21 05:00 | NUR ---
PATIENT REQUW=EST TO COME OFF BIPAP,PLACED ON 2 L/M NC
[2020-01-21 08:00] VITALS: BP 102/58
[2020-01-21 09:47] LABS: BASO % 0.4 % (0.0-1.0); EOS # 0.1 10*3/uL (0.0-0.4); EOS % 1.6 % (1.0-4.0); HEMATOCRIT 32.9 % (37.0-47.0); LYMPH % 12.6 % (27.0-41.0); MEAN CELL VOLUME 107.9 fl (81.0-99.0); MEAN CORPUSCULAR HGB 30.5 pg (27.0-31.0); MEAN CORPUSCULAR HGB CONC 28.3 g/dl (33.0-37.0); MEAN PLATELET VOLUME 10.4 fl (9.6-12.3); MONO # 1.2 10*3/uL (0.1-1.0); NEUT # 5.8 10*3/uL (2.3-7.9); NEUT % 70.3 % (47.0-73.0); PLATELET COUNT AUTOMATED 213 10*3/uL (130-400); RED BLOOD COUNT 3.05 10*6/uL (4.10-5.10); RED CELL DISTRI WIDTH 19.5 % (0-14.5); WHITE BLOOD COUNT 8.2 10*3/uL (4.8-10.8)
[2020-01-21 10:09] LABS: CREATININE 1.76 mg/dL (0.55-1.02); POTASSIUM 3.2 mmol/L (3.5-5.1)
--- NOTE | 2020-01-21 11:20 | NUR ---
PHYSICAL THERAPY Patient seen this am 1;1 for therapy visit and was restng supine in bed upon therapist arrival. Patient identified by name / and was very pleasant this morning voicing no new c/o's at this time. OT high school assistant principal was also present for observation only this session as patient presented with continuos O2-1.5L via NC. Patient transfers supine to sit EOB with MOD A, tolerating static EOB sit x several minutes to collect herself, secondary to c/o of feeling "fuzzy". Patient also completed several sit to stand transfers at bedside, CGA, use of wh walker standing support and tolerating approx 30 seconds static stand each trial. Patient fatigues quickly and returned to supine in bed with MAX A due to increased B LE edema. Patient remained in bed with call light, tray table, telephone and bed alarm for safety. Will continue per POC as tolerated, total treatment time 14 minutes. Rick Dickey, TASSEL SNIPPER
--- NOTE | 2020-01-21 11:23 | NUR ---
OT NOTE Pt was seen this A.M. 1:1 for 23 minute OT session. Upon arrival pt was supine in bed. Pt identified by name and and had complaints of 7/10 L foot pain with activity or any weight bearing and presented to therapy with continuous 1.5L-O2 via NC which she remained on throughout the entire session. Pt transferred supine to sit EOB with modA for assist with UB and BLE's. Upon inital rise to the EOB pt had complaints of feeling dizzy, educated pt on visual fixation technique and after aprox 60 seconds she then had no other complaints of feeling dizzy. Pt then completed multiple sit to stand transfers from bed level with CGA and use of w/w for UE support. Challenged pt's static standing tolerance needed for increased I in self care tasks and functional transfers. Pt was able to tolerate aprox 30 seconds at a time before sitting due to fatigue and pain in her L foot. Throughout static standing pt required constant verbal prompts for correcting her posture and holding her head up. Pt then transferred back into bed sit to supine with maxA for assist with BLE's and was repostioned in bed with maxA X 2. Pt was left supine in bed with call light in hand, tray table in place, and bed alarm activated for safety. Continue with rec D/C plan to SNF. PEPE Conner/Chelsy
[2020-01-21 12:00] VITALS: BP 119/45
[2020-01-21] MEDS ORDERED: ELIQUIS5 M1 PO (12:02)
[2020-01-21] MEDS ORDERED: LOPRESSOR25 MG PO (12:02)
[2020-01-21] MEDS ORDERED: K-TAB20 MEQ PO (12:04)
--- NOTE | 2020-01-21 13:02 | NUR ---
TOOK CAMERA IN ROOM AND THEN PATIENT REFUSED TO HAVE PICTURES. PATIENT IS TO BE DISCHARGED TO HOME.
--- NOTE | 2020-01-21 13:07 | NUR ---
SPOKE WITH DAUGHTER MARGARET ABOUT DISCHARGE AND SHE STATES THEY HAVE AN ARRANGEMENT WITH [facility]. PLEASE HAVE PROPELLANT ASSEMBLER AROUND 3 BECAUSE NEITHER DAUGHTER CAN MEET AT THE HOUSE TILL AFTER WORK.
--- NOTE | 2020-01-21 15:26 | NUR ---
[facility] CALLED AND SAID THEY ARE GONNA BE LATE THEY HAVE AN EMERGENCY.
--- NOTE | 2020-01-21 16:51 | NUR ---
PATIENT DISCHARGED TO HOME WAITING FOR [facility].
--- NOTE | 2020-01-21 17:52 | NUR ---
[facility] HAS TAKEN PATIENT.
--- NOTE | 2020-01-22 07:32 | NUR ---
PHYSICAL THERAPY CO-SIGN I approve of the Physical Therapy notes written above. Dania Demarco PT
--- NOTE | 2020-01-22 07:43 | NUR ---
OCCUPATIONAL THERAPY CO-SIGN I approve of the Occupational Therapy notes written above. LIZZIE MERIDA, OTR/L
[2020-01-22] MEDS ORDERED: ELIQUIS5 M1 PO (08:10)
== END 2020-01-21 17:52 | disposition home health service (06) | DRG 291 ==
LOC: ED 11:50 → EDHOLD 15:47 → 5E 15:47
PROVIDERS: Emergency Medicine; Family Medicine; Internal Medicine; Internal Medicine Critical Care Medicine; Student in an Organized Health Care Education/Training Program; ADMIT Internal Medicine
PROC: 5A09357 Assistance with Respiratory Ventilation, Less than 24 Consecutive Hours, Continuous Positive Airway Pressure (ICD-10-PCS; principal; 2020-01-17)
PROC: 5A09357 Assistance with Respiratory Ventilation, Less than 24 Consecutive Hours, Continuous Positive Airway Pressure (ICD-10-PCS; 2020-01-19)
PROC: 5A09357 Assistance with Respiratory Ventilation, Less than 24 Consecutive Hours, Continuous Positive Airway Pressure (ICD-10-PCS; 2020-01-20)
PROC: 5A09357 Assistance with Respiratory Ventilation, Less than 24 Consecutive Hours, Continuous Positive Airway Pressure (ICD-10-PCS; 2020-01-21)
DX: I13.0 Hypertensive heart and chronic kidney disease with heart failure and stage 1 through stage 4 chronic kidney disease, or unspecified chronic kidney disease (principal); J96.22 Acute and chronic respiratory failure with hypercapnia; J96.21 Acute and chronic respiratory failure with hypoxia; N17.0 Acute kidney failure with tubular necrosis; G93.41 Metabolic encephalopathy; I50.41 Acute combined systolic (congestive) and diastolic (congestive) heart failure; I82.411 Acute embolism and thrombosis of right femoral vein; Z68.41 Body mass index [BMI] 40.0-44.9, adult; E87.3 Alkalosis; E87.2 Acidosis; J44.1 Chronic obstructive pulmonary disease with (acute) exacerbation; I48.21 Permanent atrial fibrillation; E80.6 Other disorders of bilirubin metabolism; E03.9 Hypothyroidism, unspecified; I87.8 Other specified disorders of veins; I89.0 Lymphedema, not elsewhere classified; M81.0 Age-related osteoporosis without current pathological fracture; M48.00 Spinal stenosis, site unspecified; I27.21 Secondary pulmonary arterial hypertension; N18.3 Chronic kidney disease, stage 3 (moderate); F41.9 Anxiety disorder, unspecified; K21.9 Gastro-esophageal reflux disease without esophagitis; K44.9 Diaphragmatic hernia without obstruction or gangrene; E78.5 Hyperlipidemia, unspecified; E66.01 Morbid (severe) obesity due to excess calories; D53.9 Nutritional anemia, unspecified; E87.5 Hyperkalemia; G89.29 Other chronic pain; I25.10 Atherosclerotic heart disease of native coronary artery without angina pectoris; E11.22 Type 2 diabetes mellitus with diabetic chronic kidney disease; R91.1 Solitary pulmonary nodule; R26.2 Difficulty in walking, not elsewhere classified; R79.89 Other specified abnormal findings of blood chemistry; Z88.0 Allergy status to penicillin; Z88.2 Allergy status to sulfonamides; Z88.8 Allergy status to other drugs, medicaments and biological substances; Z96.653 Presence of artificial knee joint, bilateral; Z90.710 Acquired absence of both cervix and uterus; Z90.49 Acquired absence of other specified parts of digestive tract; Z96.611 Presence of right artificial shoulder joint; Z85.3 Personal history of malignant neoplasm of breast; Z92.3 Personal history of irradiation; Z82.49 Family history of ischemic heart disease and other diseases of the circulatory system; Z83.3 Family history of diabetes mellitus; Z83.6 Family history of other diseases of the respiratory system; Z79.899 Other long term (current) drug therapy; Z79.82 Long term (current) use of aspirin

== ENCOUNTER 2020-01-23 10:38 | Emergency (ER) | payer OTHER ==
[~2020-01-23 10:38] MED LIST changes: +DIGOXIN125 MCG PO; +ELIQUIS5 M1 PO; +K-TAB10 MEQ PO; +K-TAB20 MEQ PO; +LOPRESSOR25 MG PO; +METOPROLOL25 MG PO; +PLAVIX75 M1 PO
[2020-01-23 10:39] VITALS: BP 128/54
--- NOTE | 2020-01-23 15:12 | NUR ---
FIREWOOD CUTTER RECEIVED PHONE CALL FROM PATIENTS DAUGHTER MARGARET HERNANDEZ, UPSET THAT HER MOTHER IS BEING TRANSPORTED BACK HOME VIA AMBULANCE. WHEN THERE IS NO AT HOME TO ASSIST HER. MARGARET STATED THAT SHE WAS TOLD BY [facility] RN THAT THE PATIENT WOULD BE ASSESSED FOR SNF PLACEMENT. FIREWOOD CUTTER APOLOGIZED TO THE PATIENTS DAUGHTER. FIREWOOD CUTTER RECEIVED CHOICED SNF FACILITIES. FIREWOOD CUTTER PRINTED AND FAXED LAST ADMISSION INFOMRATION AND SENT IT TO [facility] WITH CARRIAGE IN, PATIENTS DAUGHTER IS AWARE THAT SNF WILL BE PRIVATE PAY.
[2020-01-24] MEDS ORDERED: ELIQUIS5 M1 PO (08:13)
== END 2020-01-23 13:28 ==
LOC: ED 10:38
DX: M25.561 Pain in right knee (principal); M25.562 Pain in left knee; Z88.8 Allergy status to other drugs, medicaments and biological substances; Z88.0 Allergy status to penicillin; Z79.899 Other long term (current) drug therapy; Z79.82 Long term (current) use of aspirin; Z90.710 Acquired absence of both cervix and uterus

== ENCOUNTER 2020-01-23 19:10 | Inpatient (IN) | payer OTHER ==
[~2020-01-23] VITALS: Ht 165.1 cm; Wt 100.8 kg
[2020-01-23 19:16] VITALS: BP 108/27
[2020-01-23 20:16] LABS: BASO % 0.4 % (0.0-1.0); HEMATOCRIT 26.2 % (37.0-47.0); LYMPH # 0.9 10*3/uL (1.3-4.4); LYMPH % 10.5 % (27.0-41.0); MEAN CELL VOLUME 106.1 fl (81.0-99.0); MEAN CORPUSCULAR HGB 31.2 pg (27.0-31.0); MEAN CORPUSCULAR HGB CONC 29.4 g/dl (33.0-37.0); MEAN PLATELET VOLUME 10.1 fl (9.6-12.3); MONO # 1.4 10*3/uL (0.1-1.0); MONO % 15.8 % (3.0-9.0); NEUT # 6.5 10*3/uL (2.3-7.9); NEUT % 72.5 % (47.0-73.0); PLATELET COUNT AUTOMATED 220 10*3/uL (130-400); RED BLOOD COUNT 2.47 10*6/uL (4.10-5.10); RED CELL DISTRI WIDTH 19.2 % (0-14.5)
[2020-01-23 20:24] LABS: INTERNATIONAL NORM RATIO 1.1 (2.0-3.5)
[2020-01-23 20:32] LABS: ALBUMIN 3.2 gm/dl (3.1-4.5); CREATININE 1.93 mg/dL (0.55-1.02); POTASSIUM 4.3 mmol/L (3.5-5.1); TOTAL PROTEIN 6.1 gm/dL (6.4-8.2)
[2020-01-23 20:36] LABS: TROPONIN I 0.054 ng/ml (<0.045)
[2020-01-23 21:32] LABS: BILIRUBIN NEGATIVE (NEGATIVE); BLOOD 3+ (NEGATIVE); CLARITY SL CLOUDY (CLEAR); COLOR YELLOW (YELLOW); GLUCOSE NEGATIVE (NEGATIVE); KETONE NEGATIVE (NEGATIVE); LEUKO ESTERASE 3+ (NEGATIVE); NITRITE NEGATIVE (NEGATIVE); PH 6.5 (5.0-9.0); SPECIFIC GRAVITY 1.005 (1.005-1.030)
[2020-01-23 21:35] LABS: BACTERIA 2+; RBC TNTC rbc/hpf (0-2); WBC TNTC wbc/hpf (0-5)
--- NOTE | 2020-01-23 21:40 | NUR ---
THIS RN UNABLE TO ESTABLISH IV ACCESS AT THIS TIME. NOTIFIED.
--- NOTE | 2020-01-23 22:00 | NUR ---
RN LOOKED FOR IV SITE AT THIS TIME, UNABLE TO FIND A SITE. DR CASTANO AWARE. DR CASTANO WOULD LIKE TO POSSIBLY PUT AN EJ IN THE PATIENT.
[2020-01-24] VITALS (9 sets, daily range): BP systolic 95–112; BP diastolic 37–75
--- NOTE | 2020-01-24 00:35 | NUR ---
A 84, admitted to 5E, under the services of LISA Mclaughlin DO with a diagnosis of .UTI,ANEMIA,MELANOTIC STOOLS,ACUTE KIDNEY FAILURE. Chief complaint is LEFT KNEE PAIN S/P FALL. Patient arrived via bed from ER. Monitor applied. Initial assessment completed. Vital signs taken and recorded. LISA MCLAUGHLIN DO notified of admission to the unit. Orders received. See assessment for past medical history, medications and allergies. Patient and/or family oriented to [facility]. visitation policy reviewed. Clothing/patient valuable form completed. UBALDO HOWELL RN
--- NOTE | 2020-01-24 01:22 | NUR ---
SPOKE WITH DR. CHANDLER AT THIS TIME. EXPLAINED TO HIM PATIENT HAS NO IDEA WHAT HER MEDICATIONS ARE, BUT SHE GETS HER MEDICATIONS FROM HERE AND WE CAN CALL HER DAUGHTER IN THE MORNING. ALSO NOTIFIED HIM THAT PATIENT HAS AN IV IN HER LEFT FOOT. HE STATED IT WAS OK TO USE. ALSO NOTIFIED HIM THAT PATIENTS RIGHT BIG TOE WAS BLACK AND COLD. HE ALSO STATED THAT IT WAS OK TO CHANGE THE 0.45% NORMAL SALINE TO 0.9% NORMAL SALINE IF THE PATIENT NEEDS TO RECIEVE BLOOD
--- NOTE | 2020-01-24 03:19 | NUR ---
NOTIFIED DR. CHANDLER OF PATIENTS HISTORY OF AN OCCLUSIVE DVT IN THE RIGHT LEG ON THE .HE STATED TO JUST PUT TEDS AND SCDS ON THE LEFT LEG AT THIS TIME
--- NOTE | 2020-01-24 03:35 | NUR ---
NOTIFIED DR. CHANDLER ABOUT ATTEMPTING TO PUT SCD'S ON PATIENT AND THE PATIENTS LEG IS TOO BIG. STATED I WAS ABLE TO GET TUBIGRIPS ON HER THOUGH. ALSO ASKED IF IT WAS OK TO PUT IN WOUND CARE ORDERS FROM WHAT THE WOUND CARE NURSE RECOMMENDS FOR THE PATIENT AND HE STATED THAT WAS OK AND ALSO OK TO ORDER HEELS PROTECTORS FOR THE PATIENT
[2020-01-24 06:27] LABS: HEMATOCRIT 25.2 % (37.0-47.0); MEAN CELL VOLUME 108.6 fl (81.0-99.0); MEAN CORPUSCULAR HGB 31.5 pg (27.0-31.0); MEAN PLATELET VOLUME 9.9 fl (9.6-12.3); PLATELET COUNT AUTOMATED 211 10*3/uL (130-400); RED BLOOD COUNT 2.32 10*6/uL (4.10-5.10); WHITE BLOOD COUNT 8.6 10*3/uL (4.8-10.8)
[2020-01-24 06:48] LABS: CREATININE 1.92 mg/dL (0.55-1.02)
--- NOTE | 2020-01-24 07:04 | NUR ---
JERED SHAW [id number] Please refer to the physician's history and physical for past medical history, comorbid conditions, and allergies. Diagnosis: UTI ANEMIA MELANOTIC STOOLS, ACUTE KIDNEY FAILURE Jp Score: 15,AT RISK WOUND DESCRIPTIONS: Wound Number: 1 Location of the wound: right upper arm distal Type of wound: skin tear Thickness: Partial Size: 1.2cm x 1.0cm x 0.1cm Tunneling: none Undermining: none Sinus Tract: none Presence of Exudate: Serosanguineous Amount: Moderate Color: Red Odor: None Periwound Skin Appearance: ecchymotic Wound edges: approximated Pain (associated with wound): none at time of assessment How does patient state this happened? pt stated she bumped her arm Wound Number: 2 Location of the wound: right upper arm proximal Type of wound: skin tear Thickness: Partial Size: 1.0cm x 0.9cm x 0.1cm Tunneling: none Undermining: none Sinus Tract: none Presence of Exudate: Serosanguineous Amount: Moderate Color: Red Odor: None Periwound Skin Appearance: ecchymotic Wound edges: approximated Pain (associated with wound): none at time of assessment How does patient state this happened? pt stated she bumped her arm Wound Number: 3 Location of the wound: right forearm Type of wound: skin tear Thickness: Partial Size: 0.4cm x 1.0cm x 0.1cm Tunneling: none Undermining: none Sinus Tract: none Presence of Exudate: Serosanguineous Amount: Moderate Color: Red Odor: None Periwound Skin Appearance: ecchymotic Wound edges: approximated Pain (associated with wound): none at time of assessment How does patient state this happened? pt stated she bumped her arm Wound Number: 4 Location of the wound: right buttocks Type of wound: stage 2 Thickness: Partial Size: 2.2cm x 1.5cm x <0.1cm Tunneling: none Undermining: none Sinus Tract: none Presence of Exudate: none Amount: none Color: Red Odor: None Periwound Skin Appearance: normal Wound edges: intact serum filled blister Pain (associated with wound): none at time of assessment How does patient state this happened? pt stated she bumped her arm Left elbow intact at time of assessment. No open areas or drainage noted. Kimberly in color. Left groin intact at time of assessment. No open areas or drainage noted at time off assessment. Kimberly in color. Behind right knee intact at time of assessment. No open areas or drainage noted at time of assessment. Kimberly in color. Surface the patient is resting on: Isoflex SKIN PREVENTION RECOMMENDATION: 1. Pressure redistribution support surface as appropriate 2. Elevate heels 3. Remove boots/TEDS every shift and reapply 4. Head of bed 30 degrees as tolerated 5. Assess nutrition and hydration 6. Manage moisture 7. Avoid the use of containment devices while in bed 8. Use absorptive products on surfaces limit layers of linens on bed 9. Turn and reposition every 1-2 hours in bed and every 1 hour in chair as tolerated 10. Weight shifts every 15 minutes while up in chair 11. Offloading with pillows or device to keep heels elevated off bed 12. Monitor skin at least every shift 13. Inspect under medical devices twice a day WOUND TREATMENT RECOMMENDATIONS: Skin tear guidelines: Cleanse right arm proximal, right arm distal, right forearm with nss and apply adaptic cover with 4x4 and wrap with rolled gauze daily and prn for soiling Stage 2 guidelines: Apply sureprep to right buttocks allow time to dry then cover with optifoam dressing every 2 days and prn for soiling. Heel raiser pro boots to bilateral feet while in bed Wheelchair cushion when oob.
[2020-01-24 07:20] LABS: TOTAL CELLS COUNTED 100 #CELLS
[2020-01-24 07:21] LABS: OVALOCYTES FEW; PLATELET SUFFICIENCY NORMAL (NORMAL); POLYCHROMASIA SLIGHT; ROULEAUX SLIGHT; STOMATOCYTE FEW
--- NOTE | 2020-01-24 08:09 | NUR ---
Dr. Shin notified of wound care recommendations.
[2020-01-24] MEDS ORDERED: ELIQUIS5 M1 PO (08:13)
--- NOTE | 2020-01-24 08:14 | NUR ---
SPOKE WITH PATIENTS DAUGHTER MARGARET PERTAINING TO PATIENTS MEDICATIONS. SHE STATED THAT SHE DID NOT START THE ELIQUIS UNTIL 01/22/20 HER MOTHER WAS DISCHARGED TOO LATER TO SPEECH LANGUAGE PATHOLOGIST PRESCRIPTIONS. BUT THAT ALL OF HER MEDICATIONS ARE THE SAME WHEN SHE WAS DISCHARGED
--- NOTE | 2020-01-24 08:21 | NUR ---
PHYSICAL THERAPY Screen and PT eval received will follow thank you Dania Demarco PT
--- NOTE | 2020-01-24 08:45 | NUR ---
OT NOTE Occupational therapy evaluation received and chart reviewed. OT evaluation was deferred this date due to patient reporting increased fatigue because she did not sleep well last night and was very tired. Additionally, her RUE was bleeding through it's dressing and saturating the gown and blankets. Patient stated the abrasion occured when transporting her to [facility], "it got caught on the shrubs." Patient presented with significant bruising to the B/L UEs and LEs, L neck area from attempted IJ. Per nursing, patient has a IV in her foot and is allowed to sit EOB for activity only and "dangle", no weight bearing through her LEs when patient is appropriate and agreeable. OT and PT assisted patient with changing her gown and providing new sheets/blankets. Will follow up with patient when appropriate for an OT evaluation. Thank you for the referral. Bethanie Novoa, OTR/L
--- NOTE | 2020-01-24 08:45 | NUR ---
PHYSICAL THERAPY Elroy recieved chart reviewed attempeted to see patient at the bedside, however defered therapy at this time due fatigue per pt she did not sleep last night and was very tired, also RUE bleeding through dressing saturating gown and blankets per pt "arm scratched on shrubs" when being transported to hospital. Pt with significant bruising BUE/LE, L neck bruised due to attempted IJ as pt only has IV foot for access but unable to place. Per nsg once appropriate able to participate with therapy to dangle only at this time as not wanting pt to stand/weightbear through L foot as only IV access at this time. Will follow Dania Demarco PT
--- NOTE | 2020-01-24 09:00 | NUR ---
social professionals is working with patient and family regarding halfway placement, case management will follow
--- NOTE | 2020-01-24 09:25 | NUR ---
NOTIFIED DR BOLANOS THAT PT ONLY IV ACCESS WAS #24 GAUGE IN TOP OF PATIENTS LEFT FOOT. NIGHTSHIFT RN STATED THAT PHYSICIAN ATTEMPTED TO PLACE IJ WAS UNSUCCESSFUL. DR CAMPUZANO STATED HE "WILL BE UP AND HE WILL SEE WHAT HE CAN DO".
--- NOTE | 2020-01-24 09:26 | NUR ---
FRED HAS BEEN TALKING TO THE PATIENT DAUGHTER MARGARET ALL MORNING. PATIENT DAUGHTER HAS BEEN PROVIDED WITH ROUGH ESTIMATES FOR PRIVATE PAY PLACEMENT FROM [facility], [facility], AND [facility]. PATIENTS DAUGHTER WILL BE MAKING A DECISION ON PLACE BY 2PM TODAY, ANY FACILITY CHOOSEN WILL NEED TO RECEIVE PAYMENT UPFRONT BEFORE ADMISSION.
--- NOTE | 2020-01-24 09:40 | NUR ---
DR LAGOS ROUNDED AND SEEN PT. HE WAS AWARE OF PT HAVING NO ACCEPTABLE IV ACCESS FOR BLOOD TRANSFUSION. I EXPLAINED I WAS WAITNG FOR DR BOLANOS.
--- NOTE | 2020-01-24 11:30 | NUR ---
Informed consent obtained from patient for Blood transfussion by Dr. BONILLA. Patient identified by arm band. Vital signs recorded. Blood unit number verified by 2 R.N.'s. I.V. site satisfactory. Unit 1 started at a KVO rate with Normal Saline. UBALDO SEVILLA
--- NOTE | 2020-01-24 11:32 | NUR ---
ALARM INSTALLER FAXED REFERRAL TO [facility] WHICH INCLUDED THE INFORMATION FROM LAST ADMISSION. ANY SNF FACILITY WILL REQUIRE A NEGATIVE COVID. ALARM INSTALLER NOTIIFIED RN HOSPITALIST COORDINATOR
--- NOTE | 2020-01-24 12:05 | NUR ---
DR MCCABE NOTIFIED OF NEW CONSULT FOR ELEVATED TROPONIN'S.
--- NOTE | 2020-01-24 12:07 | NUR ---
HOROLOGIST RECEIVED WORD FROM PATIENTS DAUGHTER THEY HAVE DECIDED TO GO WITH [facility]. PATIENT WILL REQUIRE A NEGATIVE COVID BEFORE ADMISSION.
--- NOTE | 2020-01-24 12:23 | NUR ---
TROP 0.047 CALLED TO . NO NEW ORDERS REC'D
--- NOTE | 2020-01-24 14:00 | NUR ---
FIRST UNIT OF PRBC'S TRANSFUSED WITHOUT DIFFICULTY. PT TOLERATED WELL. WILL CONMTINUE TO MONITOR.
--- NOTE | 2020-01-24 14:28 | NUR ---
MESSAGE LEFT ON DR HUDSON'S VOICEEMAIL AWAITING HIS RETURN CALL.
--- NOTE | 2020-01-24 14:47 | NUR ---
RAPID COVID NEGATIVE TEST IS NEEDED FOR THE PATIENT TO GO TO [facility]. PATIENT HAS BEEN ACCEPTED. HENS HAS BEEN COMPLETED. PATIENT CAN GO ONCE [facility] RECEIVES NEGATIVE TEST RESULTS.
--- NOTE | 2020-01-24 15:39 | NUR ---
NOTIFIED DR HUDSON OF NEW CONSULT FOR DVT (WEEK AGO) NOW GI BLEED.ORDERS FOR TUBIE TECHNICAL SALES SUPPORT MANAGER TO MID THIGH.
[2020-01-24 15:52] LABS: HEMATOCRIT 27.4 % (37.0-47.0); MEAN CORPUSCULAR HGB 30.4 pg (27.0-31.0); MEAN CORPUSCULAR HGB CONC 30.7 g/dl (33.0-37.0); MEAN PLATELET VOLUME 10.9 fl (9.6-12.3); NUCLEATED RED BLOOD CELL 0.2 % (0.0-0.0); PLATELET COUNT AUTOMATED 211 10*3/uL (130-400); RED BLOOD COUNT 2.76 10*6/uL (4.10-5.10); RED CELL DISTRI WIDTH 20.7 % (0-14.5); WHITE BLOOD COUNT 8.9 10*3/uL (4.8-10.8)
[2020-01-24 16:11] LABS: MEAN CELL VOLUME 99.3 fl (81.0-99.0)
--- NOTE | 2020-01-24 16:13 | NUR ---
NOTIFIED DR BOLANOS OF CRITICAL TROPONIN 0.049. HGB 8.4. NO TRANSFUSION AT THIS TIME I UNIT PRBC REMAINS ON HOLD.
[2020-01-24 16:14] LABS: TOTAL CELLS COUNTED 100 #CELLS
[2020-01-24 16:15] LABS: BURR CELLS FEW; PLATELET SUFFICIENCY NORMAL (NORMAL)
--- NOTE | 2020-01-24 17:30 | NUR ---
PT ATE 50% OF DINNER.VOICES NO NEEDS REINFORCED DRESSING AGAIN AND CHANGED ABD PADS. WRAPPED WITH YOUSUF BANDAGE TO APPLY PRESSURE. MODERATE BLEEDING STILL NOTED. DR BONILLA AWARE FROM ROUNDING EARLIER. PT TO US FOR US BLE.
--- NOTE | 2020-01-24 18:46 | NUR ---
DR BOLANOS NOTIFIED OF CRITICAL TROPONIN VALUE OF 0.051.
--- NOTE | 2020-01-24 20:00 | NUR ---
RESTING IN BED. PT. STATES THAT SHE NEEDS PAPER TOWELS OR [place] DUE TO HER NOSE BLEEDING. TOOK PATIENT KLEENEX. 02 INTACT; PT;S NOSE CLEANED BY PATIENT. IV FLUIDS INFUSING ORDERED; CALL LIGHT WITHIN REACH.
[2020-01-25] VITALS (14 sets, daily range): BP systolic 78–113; BP diastolic 30–68
--- NOTE | 2020-01-25 | NUR ---
RESTING IN BED WITH EYES CLOSED; IV FLUIDS INFUSING WITHOUT DIFFICULTY. SITE ASYMPTOMATIC. CALL LIGHT WITHIN REACH.
[2020-01-25 06:47] LABS: HEMATOCRIT 24.9 % (37.0-47.0); MEAN CORPUSCULAR HGB 31.1 pg (27.0-31.0); MEAN CORPUSCULAR HGB CONC 30.5 g/dl (33.0-37.0); MEAN PLATELET VOLUME 10.7 fl (9.6-12.3); NUCLEATED RED BLOOD CELL 0.4 % (0.0-0.0); PLATELET COUNT AUTOMATED 214 10*3/uL (130-400); RED BLOOD COUNT 2.44 10*6/uL (4.10-5.10); RED CELL DISTRI WIDTH 21.5 % (0-14.5); WHITE BLOOD COUNT 5.5 10*3/uL (4.8-10.8)
[2020-01-25 06:58] LABS: CREATININE 1.89 mg/dL (0.55-1.02); POTASSIUM 3.9 mmol/L (3.5-5.1)
[2020-01-25 07:23] LABS: PLATELET SUFFICIENCY NORMAL (NORMAL); POLYCHROMASIA SLIGHT; TOTAL CELLS COUNTED 100 #CELLS
--- NOTE | 2020-01-25 08:19 | NUR ---
MEDICATED WITH PRN PO NORCO FOR C/O LEFT LEG PAIN (BACK OF CALF UNDER KNEE)
--- NOTE | 2020-01-25 09:00 | NUR ---
PATIENT RESTING QUIETLY W/ NO S/S PAIN; PRN PO NORCO EFFECTIVE.
--- NOTE | 2020-01-25 12:54 | NUR ---
MEDICATED WITH PRN PO NORCO FOR LEFT SIDE RIB CAGE PAIN RELATED TO FALL AT HOME.
--- NOTE | 2020-01-25 13:43 | NUR ---
IVF 500ML BOLUS OF NSS INFUSING ORDERED VIA LEFT FOOT HEPLOCK. PATIENT ALSO RECEIVING 1 UNIT PRBC'S VIA LEFT ARM MIDLINE.
--- NOTE | 2020-01-25 13:50 | NUR ---
PRN PO NORCO EFFECTIVE, PER PATIENT.
--- NOTE | 2020-01-25 20:00 | NUR ---
RESTING IN BED WITH HOB ELEVATED. 02 INTACT AT 3LPM VIA NASAL CANNULA. PT. VOICES NO C/O AT THIS TIME. STATES THAT SHE IS FEELING SOMEWHAT BETTER THAN YESTERDAY. CALL LIGHT WITHIN REACH.
[2020-01-26] VITALS: BP 123/46
--- NOTE | 2020-01-26 01:22 | NUR ---
MEDICATED WITH NORCO FOR C/O KNEE PAIN.
--- NOTE | 2020-01-26 02:15 | NUR ---
RESTING IN BED WITH EYES CLOSED; PAIN MEDICATION APPARENTLY EFFECTIVE.
[2020-01-26 06:55] LABS: MEAN CELL VOLUME 100.4 fl (81.0-99.0); MEAN CORPUSCULAR HGB 30.5 pg (27.0-31.0); MEAN CORPUSCULAR HGB CONC 30.4 g/dl (33.0-37.0); MEAN PLATELET VOLUME 10.3 fl (9.6-12.3); NUCLEATED RED BLOOD CELL 0.4 % (0.0-0.0); PLATELET COUNT AUTOMATED 198 10*3/uL (130-400); RED BLOOD COUNT 2.79 10*6/uL (4.10-5.10); RED CELL DISTRI WIDTH 20.9 % (0-14.5); WHITE BLOOD COUNT 5.2 10*3/uL (4.8-10.8)
[2020-01-26 07:05] LABS: ALBUMIN 2.7 gm/dl (3.1-4.5); CREATININE 1.59 mg/dL (0.55-1.02); POTASSIUM 3.6 mmol/L (3.5-5.1); TOTAL PROTEIN 5.7 gm/dL (6.4-8.2)
[2020-01-26 07:25] LABS: PLATELET SUFFICIENCY NORMAL (NORMAL); TOTAL CELLS COUNTED 100 #CELLS
--- NOTE | 2020-01-26 07:42 | NUR ---
MEDICATED WITH PRN PO NORCO FOR LEFT KNEE AND RIGHT SIDE PAIN.
[2020-01-26 08:00] VITALS: BP 100/45
--- NOTE | 2020-01-26 08:40 | NUR ---
PRN PO NORCO EFFECTIVE, PER PATIENT.
--- NOTE | 2020-01-26 11:43 | NUR ---
MEDICATED WITH PRN PO NORCO FOR LEFT LEG PAIN.
[2020-01-26 12:00] VITALS: BP 114/51
--- NOTE | 2020-01-26 12:32 | NUR ---
PRN PO NORCO EFFECTIVE; PATIENT RESTING WITH NO S/S PAIN.
--- NOTE | 2020-01-26 13:29 | NUR ---
MEDICATED WITH PRN PO TYLENOL, IV MORPHINE, AND PO DULCOLAX FOR SEVERE PAIN TO LEFT LEG AND RIGHT SIDE, AND CONSTIPATION.
--- NOTE | 2020-01-26 13:47 | NUR ---
SPOKE WITH DR. HUDSON ON THE PHONE RE: CONSULT FOR THE PATIENT. PER DR. HUDSON, THIS PATIENT MAY BENEFIT FROM AN IVC FILTER PLACEMENT, AND SHE MAY BE TRANSFERRED TO [facility] TOMORROW FOR THE PROCEDURE IF NEEDED. DR. FINLEY NOTIFIED OF THIS AND HE IS CONTACTING THE PATIENT'S DAUGHTER TO DISCUSS THIS OPTION WITH HER.
--- NOTE | 2020-01-26 14:15 | NUR ---
PRN PO TYLENOL AND MORPHINE EFFECTIVE FOR PAIN; PATIENT SLEEPING, NO S/S PAIN.
[2020-01-26 16:00] VITALS: BP 123/50
--- NOTE | 2020-01-26 19:30 | NUR ---
PT ASLEEP IN BED. NO S/S OF DISTRESS NOTED. WILL MONITOR. CALL LIGHT IN REACH.
[2020-01-26 20:00] VITALS: BP 100/50
[2020-01-27] VITALS: BP 114/42
--- NOTE | 2020-01-27 02:10 | NUR ---
PT ASLEEP IN BED. RESPIRATIONS EASY. NO S/S OF DISTRESS NOTED. O2 IN USE. WILL MONITOR. CALL LIGHT IN REACH. BED ALARM INTACT.
--- NOTE | 2020-01-27 03:47 | NUR ---
PT ASLEEP IN BED. NO S/S OF DISTRESS NOTED. WILL MONITOR. CALL LIGHT IN REACH.
--- NOTE | 2020-01-27 05:28 | NUR ---
Upon discharge recommend patient to follow up for wound care in outpatient setting continue current wound care orders at discharging facility.
--- NOTE | 2020-01-27 05:55 | NUR ---
ELECTRONIC TECH FROM [facility] CALLED. STATES TRANSFER IS A "NO GO" IT STANDS RIGHT NOW PER [facility] ABSORPTION OPERATOR. NO REASON GIVEN AT THIS TIME.
--- NOTE | 2020-01-27 06:08 | NUR ---
PT ASLEEP IN BED AT THIS TIME. WILL UPDATE ON PLAN OF CARE ONCE SHE IS AWAKE.
--- NOTE | 2020-01-27 06:12 | NUR ---
NOTIFIED OF PT TRANSFER NOT HAPPENING TODAY. INSTRUCTED TO LET DAY TEAM KNOW.
[2020-01-27 06:28] LABS: BASO % 0.7 % (0.0-1.0); EOS % 0.2 % (1.0-4.0); HEMATOCRIT 26.8 % (37.0-47.0); LYMPH # 0.7 10*3/uL (1.3-4.4); LYMPH % 15.5 % (27.0-41.0); MEAN CELL VOLUME 102.3 fl (81.0-99.0); MEAN CORPUSCULAR HGB 30.9 pg (27.0-31.0); MEAN CORPUSCULAR HGB CONC 30.2 g/dl (33.0-37.0); MEAN PLATELET VOLUME 10.5 fl (9.6-12.3); MONO # 0.9 10*3/uL (0.1-1.0); MONO % 18.6 % (3.0-9.0); NEUT # 2.9 10*3/uL (2.3-7.9); NEUT % 63.5 % (47.0-73.0); PLATELET COUNT AUTOMATED 205 10*3/uL (130-400); RED BLOOD COUNT 2.62 10*6/uL (4.10-5.10); RED CELL DISTRI WIDTH 20.6 % (0-14.5); WHITE BLOOD COUNT 4.6 10*3/uL (4.8-10.8)
[2020-01-27 06:49] LABS: CREATININE 1.42 mg/dL (0.55-1.02); POTASSIUM 3.7 mmol/L (3.5-5.1)
--- NOTE | 2020-01-27 07:39 | NUR ---
NOTIFIED OF PATIENT'S TRANSFER TO [facility] DELAYED OF NOW.
--- NOTE | 2020-01-27 08:07 | NUR ---
Dr. Trevino notified of wound care recommendations.
--- NOTE | 2020-01-27 08:16 | NUR ---
SOILED LINEN DISTRIBUTOR FAXED UPDATES TO [employer]. SOILED LINEN DISTRIBUTOR FAXED NEGATIVE COVID TEST.
--- NOTE | 2020-01-27 08:17 | NUR ---
ASSESSMENT COMPLETE, PT IS UPDATED ON FURTHER CARE THAT [facility] IS NOT ABLE TO ACCEPT HER AT THIS TIME. WHEN MORE INFORMATION IS AVAILABLE WILL BE SURE TO LET THAT PATIENT KNOW WHAT IS GOING ON. PT VOICES NO COMPLAINTS AT THIS TIME. APPEARS TO BE IN NO DISTRESS. CALL LIGHT WITHIN REACH, WILL CONTINUE TO MONITOR
--- NOTE | 2020-01-27 09:19 | NUR ---
SPOKE TO DAUGHTER MARGARET ABOUT PATIENT AND NO LONGER GOING TO [facility]. DAUGHTER WOULD LIKE TO BE CALLED ONCE THE DOCTOR ROUNDS FOR AN UPDATE TO WHAT THE NEXT PLAN OF CARE WILL BE
--- NOTE | 2020-01-27 09:35 | NUR ---
PHYSICAL THERAPY Attempted to follow up for evaluation today, however due to medical status of new LLE acute occlusive DVT with possibility of IVC placment will defer therapy at this time until able to speak with nurse and clarify possible tranfer/treatment prior to any activity. Primary nurse off the floor currently to discuss will follow. Dania Demarco PT
--- NOTE | 2020-01-27 10:40 | NUR ---
CALLED DR SHIN TO SEE WHAT WAS GOING ON WITH THE PATIENT. HE SAID HE WAS TRYING TO GET AHOLD OF DR HUDSON, BUT SO FAR HAS HAD NO LUCK. NEED TO HEAR FROM HIM BEFORE WE KNOW NEXT STEP FOR THE PATIENT.
--- NOTE | 2020-01-27 10:56 | NUR ---
OT NOTE Occupational therapy orders received and chart reviewed. Patient has a new LLE acute occlusive DVT with a possible IVC placement. Will await for further MD clarification prior to completing an OT evaluation with the patient. Thank you for the referral. Bethanie Novoa, OTR/L
--- NOTE | 2020-01-27 11:06 | NUR ---
case management was asked to contact scheduling at [facility] regarding if patient was on schedule for an IVC filter. spoke to Crystal, she stated that the patient's plan was for [facility] to transfer patient to [facility], have the procedure then transfer to the [facility] in [place]. Crystal stated that the [facility] will not accept patient without a rapid covid test from [facility] even tho she already had a negative covid test from [facility] on 01/26/20. explained to Crystal [employer] social services specialist will contact [facility] and see how this transfer can happen today
--- NOTE | 2020-01-27 11:23 | NUR ---
DIVISION CONTROLLER SPOKE WITH [facility]. LONG THE PATIENT IS IN THEIR FACILITY WITHIN 72HOURS OF THE COVID TESTING SHE WILL BE ABLE TO ADMIT THE PATIENT. IF THE PATIENT GOES BEYOND THIS TIME FRAME SHE WILL NEED A NEW TEST. PATIENTS TEST RESULTS CAME BACK AT 01/26/2020 AT 17:29.
--- NOTE | 2020-01-27 11:26 | NUR ---
MORTGAGE BANKER FAXED PT/OT UPDATES TO [facility].
--- NOTE | 2020-01-27 11:27 | NUR ---
case management contacted [facility] regarding patient coming to their facility, spoke to Crystal, educated her that patient could go to [facility] after her procedure as long as it was withing 72 hours of covid testing that patient has in [facility]. Crystal stated patient would be discharged to [facility] immediately after her procedure. Crystal stated they will set up the procedure for tomorrow morning. Crystal also stated she will contact patient's nurse when the time is set so the nurse will know what time to arrange for the ambulancee transport
--- NOTE | 2020-01-27 11:45 | NUR ---
OT NOTE Occupational therapy orders received and chart reviewed. Spoke with nurse this AM, patient is being transferred to [facility] for an IVC filter. At this time, unsure of when the transfer will be occur. Will defer the OT evaluation at this time. Thank you. Bethanie Novoa, OTR/L
[2020-01-27 12:00] VITALS: BP 129/65
--- NOTE | 2020-01-27 14:23 | NUR ---
IN PT ROOM AT THIS TIME, REPOSITIONED PATIENT AND HEEL PROTECTORS REPLACED. LUNCH ORDERED. PT STATES NO OTHER REQUESTS AT THIS TIME
--- NOTE | 2020-01-27 14:35 | NUR ---
SPOKE TO DAUGHTER MARGARET TO INFORM HER THAT HER MOTHER WILL BE TRANSFERRED TO [facility] TOMORROW
--- NOTE | 2020-01-27 15:20 | NUR ---
SPOKE TO [facility] AND THE PATIENTS APPOINTMENT IS AT 1000 SO THEY NEED THE PATIENT THERE AT 0830. FAX NUMBER FOR [facility] IS [phone] FOR ANY INFORMATION THEY SHOULD HAVE PRIOR TO THE APPOINTMENT
[2020-01-27 16:00] VITALS: BP 131/71
--- NOTE | 2020-01-27 18:07 | NUR ---
Shift chart check completed.
--- NOTE | 2020-01-27 19:50 | NUR ---
PT AWAKE IN BED TALKING ON PHONE. DENIES ANY NEEDS AT PRESENT TIME. WILL MONITOR. CALL LIGHT IN REACH.
[2020-01-27 20:00] VITALS: BP 98/50
--- NOTE | 2020-01-27 21:15 | NUR ---
DISCHARGE WOUND PHOTOS TAKEN AT THIS TIME PER POLICY. DRESSINGS CHANGED PER ORDER. PT TOLERATED WELL. CAMERA RETURNED TO [facility]. PT SCHEDULED TO BE AT [facility] BY 0830. [facility] TO BE TRANSFERRING PT WITH 0730 HANDKERCHIEF SAMPLE CLERK. PT MADE AWARE OF PLANS.
[2020-01-27 23:15] VITALS: BP 100/49
--- NOTE | 2020-01-27 23:15 | NUR ---
PT REQUESTED AND RECEIVED PO NORCO PER PRN ORDER FOR L LEG PAIN RATED 7/10. WILL MONITOR EFFECTIVENESS. HEEL PROTECTORS ADJUSTED AND PT REPOSITIONED FOR COMFORT. CALL LIGHT IN REACH. BED ALARM INTACT.
[2020-01-28] VITALS: BP 100/49
--- NOTE | 2020-01-28 00:06 | NUR ---
EARLIER MEDICATION EFFECTIVE PER PT. WILL CONTINUE TO MONITOR. CALL LIGHT IN REACH.
[2020-01-28 06:10] LABS: MEAN CELL VOLUME 104.7 fl (81.0-99.0); MEAN CORPUSCULAR HGB 31.4 pg (27.0-31.0); MEAN PLATELET VOLUME 9.6 fl (9.6-12.3); PLATELET COUNT AUTOMATED 192 10*3/uL (130-400); RED BLOOD COUNT 2.58 10*6/uL (4.10-5.10); RED CELL DISTRI WIDTH 20.6 % (0-14.5)
[2020-01-28 06:24] LABS: POTASSIUM 3.6 mmol/L (3.5-5.1)
[2020-01-28 06:27] LABS: CREATININE 1.16 mg/dL (0.55-1.02)
[2020-01-28 06:43] LABS: BASOPHILS 1 % (0-1); TOTAL CELLS COUNTED 100 #CELLS
[2020-01-28 06:44] LABS: PLATELET SUFFICIENCY NORMAL (NORMAL)
--- NOTE | 2020-01-28 07:10 | NUR ---
REPORT CALLED TO LUIS F AT [facility]. [phone].
--- NOTE | 2020-01-28 07:17 | NUR ---
CREATIVE ASSISTANT FAXED DISCHARGE TO [facility].
--- NOTE | 2020-01-28 07:44 | NUR ---
PT TAKEN OFF FLOOR IN CARE OF AMBULANCE. ALL BELONGINGS SENT WITH PT.
--- NOTE | 2020-01-28 07:49 | NUR ---
DAUGHTER MARGARET NOTIFIED OF PT ON WAY TO [facility]. UPDATED ON PLAN OF CARE. AWARE THAT COPY OF [facility] DISCHARGE SUMMARY INCLUDED IN PATIENT'S BELONGINGS BAG.
== END 2020-01-28 07:44 | disposition other institution (70) | DRG 291 ==
LOC: ED 19:10 → 5E 23:37 → EDHOLD 23:37 → 5E 01-24 00:17
PROVIDERS: Emergency Medicine; Family Medicine; Internal Medicine; ADMIT Internal Medicine
PROC: 05HY33Z Insertion of Infusion Device into Upper Vein, Percutaneous Approach (ICD-10-PCS; principal; 2020-01-24)
PROC: 30233N1 Transfusion of Nonautologous Red Blood Cells into Peripheral Vein, Percutaneous Approach (ICD-10-PCS; principal; 2020-01-24)
DX: I13.0 Hypertensive heart and chronic kidney disease with heart failure and stage 1 through stage 4 chronic kidney disease, or unspecified chronic kidney disease (principal); N17.0 Acute kidney failure with tubular necrosis; I50.43 Acute on chronic combined systolic (congestive) and diastolic (congestive) heart failure; N39.0 Urinary tract infection, site not specified; K92.1 Melena; R17 Unspecified jaundice; Z68.41 Body mass index [BMI] 40.0-44.9, adult; I82.413 Acute embolism and thrombosis of femoral vein, bilateral; I82.432 Acute embolism and thrombosis of left popliteal vein; I48.21 Permanent atrial fibrillation; E87.8 Other disorders of electrolyte and fluid balance, not elsewhere classified; I89.0 Lymphedema, not elsewhere classified; E03.9 Hypothyroidism, unspecified; I87.8 Other specified disorders of veins; F41.9 Anxiety disorder, unspecified; J44.9 Chronic obstructive pulmonary disease, unspecified; E66.01 Morbid (severe) obesity due to excess calories; D53.9 Nutritional anemia, unspecified; N18.3 Chronic kidney disease, stage 3 (moderate); I27.21 Secondary pulmonary arterial hypertension; K21.9 Gastro-esophageal reflux disease without esophagitis; M48.00 Spinal stenosis, site unspecified; M81.0 Age-related osteoporosis without current pathological fracture; Z96.653 Presence of artificial knee joint, bilateral; I25.10 Atherosclerotic heart disease of native coronary artery without angina pectoris; G89.29 Other chronic pain; Z96.611 Presence of right artificial shoulder joint; E78.5 Hyperlipidemia, unspecified; S60.222A Contusion of left hand, initial encounter; E86.0 Dehydration; K44.9 Diaphragmatic hernia without obstruction or gangrene; S60.221A Contusion of right hand, initial encounter; R73.9 Hyperglycemia, unspecified; D63.8 Anemia in other chronic diseases classified elsewhere; T45.515A Adverse effect of anticoagulants, initial encounter; W18.30XA Fall on same level, unspecified, initial encounter; Y93.89 Activity, other specified; Y92.89 Other specified places as the place of occurrence of the external cause; Y99.8 Other external cause status; Z88.0 Allergy status to penicillin; Z88.2 Allergy status to sulfonamides; Z88.1 Allergy status to other antibiotic agents; Z88.8 Allergy status to other drugs, medicaments and biological substances; Z85.3 Personal history of malignant neoplasm of breast; Z92.3 Personal history of irradiation; Z90.711 Acquired absence of uterus with remaining cervical stump; Z90.49 Acquired absence of other specified parts of digestive tract; Z82.49 Family history of ischemic heart disease and other diseases of the circulatory system; Z82.5 Family history of asthma and other chronic lower respiratory diseases; Z83.3 Family history of diabetes mellitus; Z79.82 Long term (current) use of aspirin; Z79.899 Other long term (current) drug therapy; Z79.02 Long term (current) use of antithrombotics/antiplatelets; Z79.01 Long term (current) use of anticoagulants